=== PATIENT | female | born 1980 | race African-American/Black ===

== ENCOUNTER 2019-01-03 19:50 | Inpatient (IN) | payer MEDICAID ==
[~2019-01-03] VITALS: Ht 147.3 cm; Wt 72.6 kg
[2019-01-03] MEDS ORDERED: FERROUS SULFAT325 MG PO (20:22)
[2019-01-03] MEDS ORDERED: CARDURA4 MG PO (20:22)
[2019-01-03] MEDS ORDERED: LASIX40 MG PO (20:23)
[2019-01-03] MEDS ORDERED: HYDROCHLOROTHIA25 MG PO (20:23)
[2019-01-03] MEDS ORDERED: FOLIC ACID1 MG PO (20:23)
[2019-01-03] MEDS ORDERED: METOPROLOL TART50 MG PO (20:23)
[2019-01-03] MEDS ORDERED: LANTUS SOL100 UNIT/1 SC (20:23)
[2019-01-03] MEDS ORDERED: PROCARDIA XL30 MG PO (20:24)
[2019-01-03] MEDS ORDERED: PROTONIX40 MG PO (20:24)
[2019-01-03] MEDS ORDERED: NORVASC5 MG PO (20:24)
[2019-01-03] MEDS ORDERED: NORVASC10 MG PO (20:25)
[2019-01-03] MEDS ORDERED: TOPROL XL100 MG PO (20:25)
[2019-01-03] MEDS ORDERED: LISINOPRIL-HCT1 EAC8 PO (20:26)
[2019-01-03 21:32] LABS: BASOPHILS 0.3 % (0-2); EOSINOPHILS 1.4 % (0-7); HEMATOCRIT 33.3 % (36.0-48.0); HEMOGLOBIN 10.5 g/dL (12-16); LYMPHOCYTES 30.2 % (15-50); MCH 22.7 pg (26.0-34.0); MCHC 31.5 g/dL (31.0-37.0); MCV 72.1 fL (80.0-100.0); MONOCYTES 7.3 % (2-11); NEUTROPHILS 60.8 % (40-80); PLATELET COUNT 208 10x3/uL (130-400); RBC 4.62 10x6/uL (4.00-5.40); RDW 17.2 % (11.5-14.5); WBC 3.7 10x3/uL (4.8-10.8)
[2019-01-03 21:43] LABS: INR 0.99 (0.85-1.17); PROTIME 12.6 SECONDS (11.6-15.0)
[2019-01-03 21:44] LABS: APTT 29.2 SECONDS (22.8-39.4)
[2019-01-03 21:45] LABS: D-DIMER-QUANTITATIVE 0.5 ug/mLFEU (0.20-0.54)
[2019-01-03 22:08] LABS: ALBUMIN 3.4 g/dL (3.4-5.0); ALKALINE PHOSPHATASE 146 U/L (46-116); ALT (SGPT) 19 U/L (10-68); BILIRUBIN - TOTAL 0.37 mg/dL (0.2-1.3); CALC OSMOLALITY 286 mosm/kg (275-300); CALCIUM 8.5 mg/dL (8.5-10.1); CARBON DIOXIDE 29.2 mmol/L (21.0-32.0); CHLORIDE - SERUM 99 mmol/L (98-107); CREATININE - SERUM 0.9 mg/dL (0.6-1.3); GLUCOSE 382 mg/dL (74-106); POTASSIUM - SERUM 4.1 mmol/L (3.5-5.1); PROTEIN - SERUM 7.5 g/dL (6.4-8.2); SODIUM 136 mmol/L (136-145); UREA NITROGEN 11 mg/dL (7-18); eGFR NON AFRICAN AMERICAN 73 mL/min (90-120)
[2019-01-03 22:19] LABS: CKMB 0.4 U/L (0.0-3.6); CREATINE KINASE 83 UL (21-215); MAGNESIUM - SERUM 1.4 mg/dL (1.8-2.4); TROPONIN-I < 0.017 ng/mL (0.000-0.060)
[2019-01-03 23:40] VITALS: BP 162/97; BMI 33.5
[2019-01-03] MEDS ORDERED: ROBAXIN500 MG PO (23:40)
[2019-01-03 23:47] LABS: CKMB 0.5 U/L (0.0-3.6); CREATINE KINASE 82 UL (21-215); TROPONIN-I < 0.017 ng/mL (0.000-0.060)
--- NOTE | 2019-01-04 00:30 | NUR ---
RECIEVED REPORT FROM STEF VILLALPANDO. PT ARRIVED ON WHEELCHAIR, INITIAL VSS, WITH SBP 165. PT C/O PAIN AND NAUSEA ON ARRIVAL. PRN MORPHINE AND ZOFRAN GIVEN. INITIAL CIRCULAR CLERK COMPLETED. PT IS A GOOD HISTORIAN. PT PLACED ON CASINO FLOOR SUPERVISOR PER PROVIDERS ORDERS. PT 95 NORMAL SINUS ON TELEMETRY. PT DENIES ANY FURTHER NEEDS AT THIS TIME. WILL CPOC.
[2019-01-04 04:00] VITALS: BP 138/74
--- NOTE | 2019-01-04 04:55 | NUR ---
TRIED TO CALL RT ON NEED TO PERFORM EKG. RT NOT HERE AT THIS TIME. I HAVE CALLED TWICE.
--- NOTE | 2019-01-04 06:24 | NUR ---
NOTIFIED INCOMING SHIFT RT THAT EKG NEEDS TO BE DONE THIS AM.
[2019-01-04 07:22] LABS: BASOPHILS 0.5 % (0-2); EOSINOPHILS 1.3 % (0-7); HEMOGLOBIN 9.3 g/dL (12-16); LYMPHOCYTES 28.3 % (15-50); MCH 22.7 pg (26.0-34.0); MCV 73.2 fL (80.0-100.0); MONOCYTES 6.7 % (2-11); NEUTROPHILS 63.2 % (40-80); RDW 17.4 % (11.5-14.5); WBC 3.7 10x3/uL (4.8-10.8)
[2019-01-04 07:27] LABS: PLATELET COUNT 164 10x3/uL (130-400)
[2019-01-04 07:49] LABS: % SATURATION 14 % (15-55); IRON 29 ug/dl (35-150); TOTAL IRON BIND CAPACITY 198 ug/dl (260-445); UNSAT IRON BIND CAPACITY 169 ug/dl (150-375)
[2019-01-04 08:15] LABS: ALBUMIN 2.8 g/dL (3.4-5.0); ALKALINE PHOSPHATASE 117 U/L (46-116); ALT (SGPT) 15 U/L (10-68); BILIRUBIN - TOTAL 0.27 mg/dL (0.2-1.3); CALC OSMOLALITY 286 mosm/kg (275-300); CALCIUM 7.9 mg/dL (8.5-10.1); CHLORIDE - SERUM 102 mmol/L (98-107); CKMB 0.4 U/L (0.0-3.6); CREATINE KINASE 53 UL (21-215); CREATININE - SERUM 0.9 mg/dL (0.6-1.3); GLUCOSE 358 mg/dL (74-106); POTASSIUM - SERUM 4.2 mmol/L (3.5-5.1); PROTEIN - SERUM 6.2 g/dL (6.4-8.2); SODIUM 137 mmol/L (136-145); TROPONIN-I < 0.017 ng/mL (0.000-0.060); UREA NITROGEN 11 mg/dL (7-18); eGFR NON AFRICAN AMERICAN 73 mL/min (90-120)
[2019-01-04 08:19] LABS: MAGNESIUM - SERUM 1.4 mg/dL (1.8-2.4)
[2019-01-04 08:20] LABS: FERRITIN 21 ng/mL (3-244); PHOSPHOROUS 4.3 mg/dL (2.5-4.9)
[2019-01-04 08:31] LABS: PRO BNP 161 pg/mL (0-125)
[2019-01-04 09:48] VITALS: BP 140/94
--- NOTE | 2019-01-04 10:09 | NUR ---
PAGING DR CARTER TO SEE IF HE IS AWARE OF THE CONSULT ON THIS PATIENT. SHE IS SITTING UP IN BED , ALERT AND ORIENTED. SHE IS A LITTLE IRRITABLE, AND WANTS TO EAT. FAMILY AT BEDSIDE.
--- NOTE | 2019-01-04 10:19 | NUR ---
CALLED DR CARTER AND TOLD HIM ABOUT THE CONSULT. HE SAID HE HAD NOT SEEN IT, AND SHE COULD EAT NOW, AND THEN BE NPO.
--- NOTE | 2019-01-04 10:32 | NUR ---
CALLED PHARMACY TO VERIFY NEW ORDERS.
[2019-01-04 11:29] LABS: CKMB 0.5 U/L (0.0-3.6); CREATINE KINASE 57 UL (21-215); TROPONIN-I < 0.017 ng/mL (0.000-0.060)
--- NOTE | 2019-01-04 12:47 | MORECARE ---
CASE MANAGEMENT DISCHARGE SUMMARY PATIENT: ERYN CONTRERAS UNIT: [id number] ADM DATE: 01/03/19 AGE: 38 : 78 SEX: F ROOM/BED: D.1209 AUTHOR: FATOUMATA RAMIREZ PHYSICIAN: REFERRING PHYSICIAN: FREDA GAINES MD DATE OF SERVICE: 01/04/19 Discharge Plan Patient Name: ERYN CONTRERAS Facility: [facility]:[place] : 1980 Planned Disposition: Home Anticipated Discharge Date: 01/06/19 Discharge Date: Expected LOS: 3 Initial Reviewer: [email or web address] Initial Review Date: 01/03/2019 Generated: 01/04/19 1:46 pm Patient Name: ERYN CONTRERAS Page [phone] at 1247 All edits/amendments must be made on the electronic document DICTATION DATE: 01/04/19 1246 IT INTERN: CAROLINA 01/04/19 1246 RPT#: [id number] DC DATE: STATUS: ADM IN [facility] [address] [place] [address] END OF REPORT
--- NOTE | 2019-01-04 12:57 | MORECARE ---
CASE MANAGEMENT DISCHARGE SUMMARY PATIENT: ERYN CONTRERAS UNIT: [id number] ADM DATE: 01/03/19 AGE: 38 : 78 SEX: F ROOM/BED: D.1209 AUTHOR: ASHLEYDOC PHYSICIAN: REFERRING PHYSICIAN: FREDA GAINES MD DATE OF SERVICE: 01/04/19 Discharge Plan Patient Name: ERYN CONTRERAS Facility: [facility]:[place] : 1980 Planned Disposition: Home Anticipated Discharge Date: 01/06/19 Discharge Date: Expected LOS: 3 Initial Reviewer: [email or web address] Initial Review Date: 01/03/2019 Generated: 01/04/19 1:56 pm Comments DCP- Discharge Planning Updated by [email or web address]: Lien Veras on 01/04/19 11:[address] DC PLAN: Return home with her significant other Independently ANTICIPATED DC NEEDS: Denied known dc needs. CM met with patient to complete initial dc planning assessment. CM educated patient on the CM role and verbal consent given by patient to complete assessment. CM verified patient's address, phone number, and emergency contact phone numbers. Patient lives at home with her significant other, Talat. She reports she is independent in her care at home. At discharge patient plans to return home and feels this is a safe discharge. CM discussed availability of home health, rehab services, and medical equipment. Patient stated she would like to have a knee brace at discharge. Patient reports Talat will transport her home at time of discharge. CM will continue to follow and will assist as needed with dc plans/needs. Lien Veras RN, [facility] DCPIA - Discharge Planning Initial Assessment Updated by [email or web address]: Lien Veras on 01/04/19 12:47 pm * Is the patient Alert and Oriented? Yes * PCP [facility]u [facility] * [facility] [address] * Preadmission Environment Home with Family * ADLs Independent * Equipment Glucometer Rolling Walker * List name and contact numbers for known caregivers / representatives who currently or will assist patient after discharge: Talat Moise - [facility] - [phone] * Verbal permission to speak to the caregivers and representatives has been obtained from the patient. Yes * Community resources currently utilized None * Additional services required to return to the preadmission environment? No * Can the patient safely return to the preadmission environment? Yes * Has this patient been hospitalized within the prior 30 days at any hospital? No Last DP export: 01/04/19 11:46 a Patient Name: ERYN CONTRERAS Page 51532 at 1257 All edits/amendments must be made on the electronic document DICTATION DATE: 01/04/191255 HIGH SCHOOL SCIENCE TEACHER: CAROLINA 01/04/191255 RPT#: [id number] DC DATE: STATUS: ADM IN [facility] [address] [place] [address] END OF REPORT
--- NOTE | 2019-01-04 14:19 | NUR ---
TREATING PATIENT BACK PAIN ORDERED. SHE IS RESTING IN BED ON HER SIDE AT THIS TIME. KEEPING HER NPO UNTIL CARDIOLOGY CONSULT. SHE HAD A EARLY LUNCH. ONLY HER MEDICATIONS WITH SIPS OF WATER NOW.
[2019-01-04 14:33] LABS: APPEARANCE CLEAR (CLEAR); BILIRUBIN NEGATIVE (NEGATIVE); COLOR STRAW (YELLOW); GLUCOSE 100 mg/dL (NEGATIVE); KETONE NEGATIVE (NEGATIVE); NITRITE NEGATIVE (NEGATIVE); PROTEIN NEGATIVE (NEGATIVE); SPECIFIC GRAVITY 1.015 (1.005-1.020); UROBILINOGEN NORMAL (NORMAL)
[2019-01-04 15:40] VITALS: BP 104/71
--- NOTE | 2019-01-04 19:45 | NUR ---
EVENING ROUND COMPLETED. VSS, WITH BP OF 106/57. WILL MONITOR CLOSELY. AAOX3, NO S/S OF DISTRESS. PT C/O PAIN ON HER BACK, WILL ADMINISTER MED, WHEN DUE. PT DENIES ANY FURTHER NEEDS AT THIS TIME. WILL CPOC. CL WITHIN REACH.
[2019-01-04 19:52] VITALS: BP 106/57
[2019-01-05] VITALS: BP 95/53
[2019-01-05 04:33] VITALS: BP 103/59
[2019-01-05 05:35] LABS: BASOPHILS 0.6 % (0-2); EOSINOPHILS 2.8 % (0-7); LYMPHOCYTES 24.7 % (15-50); MCH 22.2 pg (26.0-34.0); MCHC 30.3 g/dL (31.0-37.0); MCV 73.2 fL (80.0-100.0); MONOCYTES 6.6 % (2-11); NEUTROPHILS 65.3 % (40-80); PLATELET COUNT 192 10x3/uL (130-400); RBC 4.51 10x6/uL (4.00-5.40); RDW 17.3 % (11.5-14.5); WBC 3.2 10x3/uL (4.8-10.8)
[2019-01-05 06:03] LABS: CALCIUM 8.5 mg/dL (8.5-10.1); CARBON DIOXIDE 30.7 mmol/L (21.0-32.0); CREATININE - SERUM 0.9 mg/dL (0.6-1.3); MAGNESIUM - SERUM 1.3 mg/dL (1.8-2.4); POTASSIUM - SERUM 3.7 mmol/L (3.5-5.1)
--- NOTE | 2019-01-05 07:10 | NUR ---
REPORT RECEIVED FROM AGRICULTURE INSTRUCTOR AND PATIENT CARE ASSUMED. PATIENT LAYING IN BED ON RT SIDE WITH EYES CLOSED AND BREATHING EVENLY. PATIENT AWAKENED FOR VS. VSS. PATIENT DENIES ANY NEEDS OR PAIN. AT BS. WILL CONTINUE WITH PLAN OF CARE. SR UP X 2 BED IN LOW POSITION AND CALL LIGHT IN REACH.
--- NOTE | 2019-01-05 11:09 | NUR ---
PATIENT COMPLAINS OF HEADACHE. MEDICATED PER JUN WITH TYLENOL 650 MG PO. AT BS. WILL CONTINUE TO MONITOR. SR UP X 2 BED IN LOW POSITION AND CALL LIGHT IN REACH.
--- NOTE | 2019-01-05 14:15 | NUR ---
PATIENT UP TO SHOWER. CLEAN GOWN ON WITH COMPLETE LINEN CHANGE. PATIENT TOLERATED WELL. PATIENT DENIES ANY NEEDS OR PAIN. WILL CONTINUE TO MONITOR. SR UP X 2 BED IN LOW POSITION AND CALL LIGHT IN REACH.
[2019-01-05 15:07] VITALS: Ht 147.3 cm; Wt 72.6 kg
--- NOTE | 2019-01-05 15:25 | NUR ---
CIRO GARCIA FROM CARDIOLOGY STATES PT IS OK TO DC AND THAT DR. NINA WAS WAITING ON THEM. I VERBALIZED UNDERSTANDING. PAGED SYDNEY GARCIA.
[2019-01-05] MEDS ORDERED: ZITHROMAX500 MG PO (15:36)
[2019-01-05] MEDS ORDERED: OMNICEF300 MG PO (15:37)
--- NOTE | 2019-01-05 18:55 | MORECARE ---
CASE MANAGEMENT DISCHARGE SUMMARY PATIENT: ERYN CONTRERAS UNIT: [id number] ADM DATE: 01/03/19 AGE: 38 : 78 SEX: F ROOM/BED: D.1209 AUTHOR: ASHLEYDOC PHYSICIAN: REFERRING PHYSICIAN: FREDA GAINES MD DATE OF SERVICE: 01/05/19 Discharge Plan Patient Name: ERYN CONTRERAS Facility: [facility]:[place] : 1980 Planned Disposition: Home Anticipated Discharge Date: 01/06/19 Discharge Date: 01/05/2019 Expected LOS: 3 Initial Reviewer: [email or web address] Initial Review Date: 01/03/2019 Generated: 01/05/19 7:54 pm Comments DCP- Discharge Planning Updated by [email or web address]: Lien Veras on 01/04/19 11:[address] DC PLAN: Return home with her significant other Independently ANTICIPATED DC NEEDS: Denied known dc needs. CM met with patient to complete initial dc planning assessment. CM educated patient on the CM role and verbal consent given by patient to complete assessment. CM verified patient's address, phone number, and emergency contact phone numbers. Patient lives at home with her significant other, Talat. She reports she is independent in her care at home. At discharge patient plans to return home and feels this is a safe discharge. CM discussed availability of home health, rehab services, and medical equipment. Patient stated she would like to have a knee brace at discharge. Patient reports Talat will transport her home at time of discharge. CM will continue to follow and will assist as needed with dc plans/needs. Lien Veras RN, [facility] DCPIA - Discharge Planning Initial Assessment Updated by [email or web address]: Lien Veras on 01/04/19 12:47 pm * Is the patient Alert and Oriented? Yes * PCP [facility]u [facility] - [facility] * [facility] [address] * Preadmission Environment Home with Family * ADLs Independent * Equipment Glucometer Rolling Walker * List name and contact numbers for known caregivers / representatives who currently or will assist patient after discharge: Talat Moise - [facility] - [phone] * Verbal permission to speak to the caregivers and representatives has been obtained from the patient. Yes * Community resources currently utilized None * Additional services required to return to the preadmission environment? No * Can the patient safely return to the preadmission environment? Yes * Has this patient been hospitalized within the prior 30 days at any hospital? No Last DP export: 01/04/19 11:57 a Patient Name: ERYN CONTRERAS Page [phone] at 1855 All edits/amendments must be made on the electronic document DICTATION DATE: 01/05/191853 OUTSIDE UPHOLSTERER: CAROLINA 01/05/191853 RPT#: [id number] DC DATE:01/05/19 STATUS: DIS IN [facility] [address] [place] [address] END OF REPORT
== END 2019-01-05 17:00 | disposition home or self-care (01) | DRG 304 ==
LOC: D.ER 19:50 → D.M3 22:13
PROVIDERS: Family Medicine; ADMIT Family Medicine; ATTEND Family Medicine
DX: I16.0 Hypertensive urgency (principal); J18.9 Pneumonia, unspecified organism; I11.0 Hypertensive heart disease with heart failure; I50.9 Heart failure, unspecified; D50.9 Iron deficiency anemia, unspecified; E11.9 Type 2 diabetes mellitus without complications; D86.9 Sarcoidosis, unspecified

== ENCOUNTER 2019-01-23 20:15 | Emergency (ER) | payer MEDICAID ==
[~2019-01-23] VITALS: Ht 147.3 cm; Wt 72.6 kg
[~2019-01-23 20:15] MED LIST: CARDURA4 MG PO; FERROUS SULFAT325 MG PO; FOLIC ACID1 MG PO; HYDROCHLOROTHIA25 MG PO; LANTUS SOL100 UNIT/1 SC; LASIX40 MG PO; LISINOPRIL-HCT1 EAC8 PO; METOPROLOL TART50 MG PO; NORVASC10 MG PO; NORVASC5 MG PO; OMNICEF300 MG PO; PROCARDIA XL30 MG PO; PROTONIX40 MG PO; ROBAXIN500 MG PO; TOPROL XL100 MG PO; ZITHROMAX500 MG PO
[2019-01-23 20:19] VITALS: Ht 147.3 cm; Wt 72.6 kg
[2019-01-23 21:13] LABS: BASOPHILS 0.5 % (0-2); EOSINOPHILS 1.3 % (0-7); HEMATOCRIT 33.1 % (36.0-48.0); HEMOGLOBIN 10.2 g/dL (12-16); LYMPHOCYTES 31.8 % (15-50); MCH 22.4 pg (26.0-34.0); MCHC 30.8 g/dL (31.0-37.0); MCV 72.7 fL (80.0-100.0); MONOCYTES 7.9 % (2-11); NEUTROPHILS 58.5 % (40-80); PLATELET COUNT 174 10x3/uL (130-400); RBC 4.55 10x6/uL (4.00-5.40); RDW 16.8 % (11.5-14.5); WBC 3.8 10x3/uL (4.8-10.8)
[2019-01-23 21:22] LABS: APTT 27.9 SECONDS (22.8-39.4); INR 0.97 (0.85-1.17); PROTIME 12.4 SECONDS (11.6-15.0)
[2019-01-23 21:31] LABS: UDS - AMPHET NEGATIVE QUAL (NEGATIVE); UDS - BARB NEGATIVE QUAL (NEGATIVE); UDS - BENZO NEGATIVE QUAL (NEGATIVE); UDS - COCAINE NEGATIVE QUAL (NEGATIVE); UDS - OPIATE NEGATIVE QUAL (NEGATIVE); UDS - PCP NEGATIVE QUAL (NEGATIVE); UDS - THC NEGATIVE QUAL (NEGATIVE)
[2019-01-23 21:38] LABS: ALBUMIN 3.2 g/dL (3.4-5.0); ALKALINE PHOSPHATASE 177 U/L (46-116); ALT (SGPT) 23 U/L (10-68); BILIRUBIN - TOTAL 0.62 mg/dL (0.2-1.3); CALC OSMOLALITY 287 mosm/kg (275-300); CALCIUM 8.2 mg/dL (8.5-10.1); CARBON DIOXIDE 24.2 mmol/L (21.0-32.0); CHLORIDE - SERUM 100 mmol/L (98-107); CREATINE KINASE 211 UL (21-215); CREATININE - SERUM 0.9 mg/dL (0.6-1.3); MAGNESIUM - SERUM 1.5 mg/dL (1.8-2.4); POTASSIUM - SERUM 5.7 mmol/L (3.5-5.1); PROTEIN - SERUM 7.6 g/dL (6.4-8.2); SODIUM 135 mmol/L (136-145); TROPONIN-I < 0.017 ng/mL (0.000-0.060); UREA NITROGEN 12 mg/dL (7-18); eGFR NON AFRICAN AMERICAN 73 mL/min (90-120)
[2019-01-23 21:42] LABS: GLUCOSE 422 mg/dL (74-106)
[2019-01-23 22:06] LABS: CKMB 0.2 U/L (0.0-3.6)
[2019-01-23 22:19] LABS: APPEARANCE CLEAR (CLEAR); BILIRUBIN NEGATIVE (NEGATIVE); COLOR YELLOW (YELLOW); GLUCOSE 1000 mg/dL (NEGATIVE); KETONE NEGATIVE (NEGATIVE); NITRITE NEGATIVE (NEGATIVE); PROTEIN TRACE mg/dL (NEGATIVE); UROBILINOGEN NORMAL (NORMAL)
[2019-01-23 22:21] LABS: BACTERIA FEW /hpf (NEGATIVE); RED CELLS - URINE 0-5 /hpf (0-5); WHITE CELLS - URINE OCC /hpf (NEGATIVE)
[2019-01-24 00:41] VITALS: BP 133/67
== END 2019-01-24 00:41 | disposition home or self-care (01) ==
LOC: D.ER 20:15
PROVIDERS: Family Medicine
DX: I16.9 Hypertensive crisis, unspecified (principal); I11.0 Hypertensive heart disease with heart failure; I50.9 Heart failure, unspecified; E11.65 Type 2 diabetes mellitus with hyperglycemia; E87.5 Hyperkalemia; R80.9 Proteinuria, unspecified

== ENCOUNTER 2019-03-22 15:29 | Inpatient (IN) | payer MEDICAID ==
[~2019-03-22] VITALS: Ht 147.3 cm; Wt 72.6 kg
[2019-03-22 16:25] LABS: BASOPHILS 0.2 % (0-2); EOSINOPHILS 1.6 % (0-7); HEMATOCRIT 35.7 % (36.0-48.0); HEMOGLOBIN 11.1 g/dL (12-16); IMMATURE GRANULOCYTES 0.2 % (0-5); LYMPHOCYTES 25.5 % (15-50); MCH 23.2 pg (26.0-34.0); MCHC 31.1 g/dL (31.0-37.0); MCV 74.5 fL (80.0-100.0); MONOCYTES 5.3 % (2-11); NEUTROPHILS 67.2 % (40-80); RBC 4.79 10x6/uL (4.00-5.40); RDW 14.7 % (11.5-14.5); WBC 4.9 10x3/uL (4.8-10.8)
[2019-03-22 16:31] LABS: PLATELET COUNT 244 10x3/uL (130-400)
[2019-03-22 16:35] LABS: INR 1.05 (0.85-1.17); PROTIME 13.2 SECONDS (11.6-15.0)
[2019-03-22 16:57] LABS: ALBUMIN 3.1 g/dL (3.4-5.0); ALKALINE PHOSPHATASE 156 U/L (46-116); ALT (SGPT) 22 U/L (10-68); BILIRUBIN - TOTAL 0.42 mg/dL (0.2-1.3); CALCIUM 8.4 mg/dL (8.5-10.1); CARBON DIOXIDE 24.2 mmol/L (21.0-32.0); CHLORIDE - SERUM 92 mmol/L (98-107); CKMB 0.4 U/L (0.0-3.6); CREATINE KINASE 45 UL (21-215); CREATININE - SERUM 1.5 mg/dL (0.6-1.3); MAGNESIUM - SERUM 1.5 mg/dL (1.8-2.4); PROTEIN - SERUM 7.9 g/dL (6.4-8.2); SODIUM 125 mmol/L (136-145); UREA NITROGEN 11 mg/dL (7-18); eGFR NON AFRICAN AMERICAN 41 mL/min (90-120)
[2019-03-22 17:00] LABS: CALC OSMOLALITY 286 mosm/kg (275-300); GLUCOSE 738 mg/dL (74-106); TROPONIN-I < 0.017 ng/mL (0.000-0.060)
[2019-03-22 19:30] VITALS: BP 162/101
[2019-03-22 23:11] LABS: CALC OSMOLALITY 279 mosm/kg (275-300); CALCIUM 7.9 mg/dL (8.5-10.1); CARBON DIOXIDE 28.1 mmol/L (21.0-32.0); CHLORIDE - SERUM 97 mmol/L (98-107); CKMB 0.5 U/L (0.0-3.6); CREATINE KINASE 56 UL (21-215); CREATININE - SERUM 1.4 mg/dL (0.6-1.3); GLUCOSE 359 mg/dL (74-106); POTASSIUM - SERUM 3.5 mmol/L (3.5-5.1); SODIUM 133 mmol/L (136-145); TROPONIN-I < 0.017 ng/mL (0.000-0.060); UREA NITROGEN 12 mg/dL (7-18); eGFR NON AFRICAN AMERICAN 44 mL/min (90-120)
[2019-03-23] VITALS (7 sets, daily range): BP systolic 104–162; BP diastolic 58–101; Ht 147.3 cm; Wt 72.6 kg
[2019-03-23 06:24] LABS: BASOPHILS 0.2 % (0-2); EOSINOPHILS 3.8 % (0-7); HEMATOCRIT 33.3 % (36.0-48.0); HEMOGLOBIN 10.6 g/dL (12-16); LYMPHOCYTES 28.3 % (15-50); MCH 23.7 pg (26.0-34.0); MCHC 31.8 g/dL (31.0-37.0); MCV 74.5 fL (80.0-100.0); MONOCYTES 7.3 % (2-11); NEUTROPHILS 60.4 % (40-80); PLATELET COUNT 213 10x3/uL (130-400); RBC 4.47 10x6/uL (4.00-5.40); RDW 15.1 % (11.5-14.5); WBC 4.5 10x3/uL (4.8-10.8)
[2019-03-23 06:32] LABS: KETONE - SERUM NEGATIVE (NEGATIVE)
[2019-03-23 06:49] LABS: AMYLASE - SERUM 40 U/L (25-115); CARBON DIOXIDE 28.9 mmol/L (21.0-32.0); CHLORIDE - SERUM 104 mmol/L (98-107); CKMB 0.4 U/L (0.0-3.6); CREATINE KINASE 40 UL (21-215); LIPASE 64 U/L (73-393); MAGNESIUM - SERUM 1.5 mg/dL (1.8-2.4); PHOSPHOROUS 4.4 mg/dL (2.5-4.9); POTASSIUM - SERUM 3.7 mmol/L (3.5-5.1); SODIUM 140 mmol/L (136-145); TROPONIN-I < 0.017 ng/mL (0.000-0.060); UREA NITROGEN 14 mg/dL (7-18); eGFR NON AFRICAN AMERICAN 65 mL/min (90-120)
[2019-03-23 07:00] LABS: CALC OSMOLALITY 279 mosm/kg (275-300); GLUCOSE 95 mg/dL (74-106)
--- NOTE | 2019-03-23 10:09 | NUR ---
PT IS RESTING IN BED WITH EYES OPEN. NO S/S OF ACUTE DISTRESS. PT C/O OF PAIN. PT WAS GIVEN MORPHINE AND ZOFRAN. PT IV IN R HAND, NORMAL SALINE @ 100 ML/HR. IV IS PATENT WITHOUT REDNESS OR SWELLING. WILL REVAULATE PAIN. CALL LIGHT IN PLACE. WILL CONTINUE TO MONITOR.
[2019-03-23 12:00] LABS: CARBON DIOXIDE 23.6 mmol/L (21.0-32.0); CHLORIDE - SERUM 103 mmol/L (98-107); CKMB 0.3 U/L (0.0-3.6); CREATINE KINASE 46 UL (21-215); CREATININE - SERUM 0.9 mg/dL (0.6-1.3); POTASSIUM - SERUM 3.7 mmol/L (3.5-5.1); SODIUM 135 mmol/L (136-145); UREA NITROGEN 13 mg/dL (7-18); eGFR NON AFRICAN AMERICAN 73 mL/min (90-120)
[2019-03-23 12:01] LABS: CALC OSMOLALITY 272 mosm/kg (275-300); GLUCOSE 153 mg/dL (74-106); TROPONIN-I < 0.017 ng/mL (0.000-0.060)
--- NOTE | 2019-03-23 13:07 | NUR ---
IV WAS TAKEN OUT BECUASE OF INFILTRATION. THERE WAS A SMALL AREA OF SWELLING AT THE BASE OF THE THUMB. PT EXPRESSED NO TENDERNESS. CATHETER TIP IN TACT. CALL LIGHT IN PLACE. WILL CONTINUE TO MONITOR.
--- NOTE | 2019-03-23 15:20 | NUR ---
PT IV WAS NOT REPLACE PER ORDER.
[2019-03-23 16:35] LABS: UDS - AMPHET NEGATIVE QUAL (NEGATIVE); UDS - BARB NEGATIVE QUAL (NEGATIVE); UDS - BENZO NEGATIVE QUAL (NEGATIVE); UDS - COCAINE NEGATIVE QUAL (NEGATIVE); UDS - OPIATE POSITIVE QUAL (NEGATIVE); UDS - PCP NEGATIVE QUAL (NEGATIVE); UDS - THC NEGATIVE QUAL (NEGATIVE)
[2019-03-23 17:34] LABS: ANION GAP 11.5 mmol/L (8-16); CARBON DIOXIDE 27.2 mmol/L (21.0-32.0); CREATININE - SERUM 1.1 mg/dL (0.6-1.3); POTASSIUM - SERUM 3.7 mmol/L (3.5-5.1)
--- NOTE | 2019-03-23 19:35 | NUR ---
I have reviewed this patient and I concur with the Shift Assessment completed by the Licensed Practical Nurse today this shift.
--- NOTE | 2019-03-23 19:39 | NUR ---
PATIENT SITTING UP IN BED, FAMILY AT BEDSIDE. PATIENT STATES HER PAIN IS AN 8 OUT OF 10 AND WOULD LIKE SOME PAIN MEDICINE. PATIENT HAS NO IV. ROOM AIR. PATIENT HAS NO FURTHER NEEDS AT THIS TIME. BED RAILS X2. CALL LIGHT AND BEDSIDE TABLE WITHIN REACH.
[2019-03-24] VITALS: BP 103/73
[2019-03-24 04:00] VITALS: BP 112/74
[2019-03-24 07:21] LABS: ANION GAP 7.5 mmol/L (8-16); CALCIUM 7.8 mg/dL (8.5-10.1); CARBON DIOXIDE 28.4 mmol/L (21.0-32.0); CREATININE - SERUM 0.9 mg/dL (0.6-1.3); MAGNESIUM - SERUM 1.5 mg/dL (1.8-2.4); POTASSIUM - SERUM 3.9 mmol/L (3.5-5.1)
[2019-03-24 07:26] LABS: BASOPHILS 0.2 % (0-2); EOSINOPHILS 4.1 % (0-7); HEMATOCRIT 29.4 % (36.0-48.0); HEMOGLOBIN 9.1 g/dL (12-16); IMMATURE GRANULOCYTES 0.2 % (0-5); LYMPHOCYTES 27.3 % (15-50); MCH 22.9 pg (26.0-34.0); MCV 73.9 fL (80.0-100.0); MONOCYTES 8.8 % (2-11); NEUTROPHILS 59.4 % (40-80); PLATELET COUNT 168 10x3/uL (130-400); RBC 3.98 10x6/uL (4.00-5.40); WBC 4.4 10x3/uL (4.8-10.8)
[2019-03-24 08:00] VITALS: BP 109/78
--- NOTE | 2019-03-24 08:18 | NUR ---
PT RESTING IN BED WITH EYES CLOSED. NO S/S OF DISTRESS. NO C/O AT THIS TIME. NO IV AT THIS TIME BUT ASSOCIATE TEACHER WAS NOTIFIED ABOUT THE RECOMENDATION OF A MIDLINE FROM VASCULAR ACCESS. PT TELEMETRY 89 SINUS RYTHM. CALL LIGHT IN PLACE. WILL CONTINUE TO MONITOR.
--- NOTE | 2019-03-24 11:15 | NUR ---
MIDLINE PLACED BY VASCULAR ACCESS NURSE IN L UPPER ARM. IV IS PATENT WITHOUT REDNESS, SWELLING, OR TENDERNESS. IV NORMAL SALINE @ 100 ML/HR. PT HAS NO S/S OF DISTRESS. NO C/O AT THIS TIME. CALL LIGHT IN PLACE. WILL CONTINUE TO MONITOR.
[2019-03-24 12:00] VITALS: BP 147/85
--- NOTE | 2019-03-24 12:27 | MORECARE ---
CASE MANAGEMENT DISCHARGE SUMMARY PATIENT: ERYN CONTRERAS UNIT: [id number] ADM DATE: 03/22/19 AGE: 38 : [birth year] SEX: F ROOM/BED: D.2215 AUTHOR: FATOUMATA RAMIREZ PHYSICIAN: REFERRING PHYSICIAN: KARO GARDNER MD DATE OF SERVICE: 03/24/19 Discharge Plan Patient Name: ERYN CONTRERAS Facility: [facility]:[place] : 1980 Planned Disposition: Home or Self Care Anticipated Discharge Date: Discharge Date: Expected LOS: Initial Reviewer: [email or web address] Initial Review Date: 03/22/2019 Generated: 03/24/19 1:26 pm DCPIA - Discharge Planning Initial Assessment Updated by [email or web address]: Corinne Riley on 03/24/19 12:26 pm * Is the patient Alert and Oriented? Yes * How many steps to enter\exit or inside your home? * PCP GINGER NOGUERA APN * [facility] * Preadmission Environment Home with Family * ADLs Independent * Equipment Glucometer * List name and contact numbers for known caregivers / representatives who currently or will assist patient after discharge: SHANTEL MEDINA [phone] * Verbal permission to speak to the caregivers and representatives has been obtained from the patient. N/A * Community resources currently utilized None * Can the patient safely return to the preadmission environment? Yes * Has this patient been hospitalized within the prior 30 days at any hospital? No Patient Name: ERYN CONTRERAS Page 18391 at 1227 All edits/amendments must be made on the electronic document DICTATION DATE: 03/24/19 1226 NONFARM ANIMAL CARETAKER: CAROLINA 03/24/19 1226 RPT#: [id number] DC DATE: STATUS: ADM IN [facility] [address] [place] [address] END OF REPORT
[2019-03-24] MEDS ORDERED: GLUCOPHAGE500 MG PO (12:32)
[2019-03-24] MEDS ORDERED: TOPROL XL50 MG PO (12:33)
[2019-03-24] MEDS ORDERED: Lantus Insulin SC (12:40)
--- NOTE | 2019-03-24 12:41 | MORECARE ---
CASE MANAGEMENT DISCHARGE SUMMARY PATIENT: ERYN CONTRERAS UNIT: [id number] ADM DATE: 03/22/19 AGE: 38 : [birth year] SEX: F ROOM/BED: D.2215 AUTHOR: ASHLEYDOC PHYSICIAN: REFERRING PHYSICIAN: KARO GARDNER MD DATE OF SERVICE: 03/24/19 Discharge Plan Patient Name: ERYN CONTRERAS Facility: [facility]:[place] : 1980 Planned Disposition: Home or Self Care Anticipated Discharge Date: Discharge Date: Expected LOS: Initial Reviewer: [email or web address] Initial Review Date: 03/22/2019 Generated: 03/24/19 1:41 pm Comments DCP- Discharge Planning Updated by [email or web address]: Corinne Riley on 03/24/19 11:[address] Patient Name: ERYN CONTRERAS Admission Status: ER Accout number: [id number] Admission Date: 03-22-2019 : 1980 Admission Diagnosis: Attending: KARO GARDNER Current LOS: 2 Anticipated DC Date: Planned Disposition: Home or Self Care Primary Insurance: MEDICAID [place] Discharge Planning Comments: CM met with patient to complete initial dc planning assessment. CM educated patient on the CM role and verbal consent given by patient to complete assessment. Patient lives at home with her boyfriend where she is independent with his care. At discharge patient plans to return home and feels this is a safe discharge. CM discussed availability of home health, rehab services, and medical equipment. She has a glucometer at home and stated she knew how to use it. She did question about HH. I gave her a list of choices and she will get back with me. Patient denied known discharge needs at this time. CM will continue to follow and will assist as needed with dc plans/needs House Worker: Corinne Riley DCPIA - Discharge Planning Initial Assessment Updated by [email or web address]: Corinne Riley on 03/24/19 12:26 pm * Is the patient Alert and Oriented? Yes * How many steps to enter\exit or inside your home? * PCP GINGER NOGUERA APN * [facility] * Preadmission Environment Home with Family * ADLs Independent * Equipment Glucometer * List name and contact numbers for known caregivers / representatives who currently or will assist patient after discharge: SHANTEL MEDINA [phone] * Verbal permission to speak to the caregivers and representatives has been obtained from the patient. N/A * Community resources currently utilized None * Can the patient safely return to the preadmission environment? Yes * Has this patient been hospitalized within the prior 30 days at any hospital? No Last DP export: 03/24/19 11:27 Patient Name: ERYN CONTRERAS Page 42913 at 1241 All edits/amendments must be made on the electronic document DICTATION DATE: 03/24/19 1241 FINGER GRIP MACHINE OPERATOR: CAROLINA 03/24/19 1241 RPT#: [id number] DC DATE: STATUS: ADM IN [facility] [address] [place] [address] END OF REPORT
--- NOTE | 2019-03-24 12:46 | NUR ---
I have reviewed this patient and I concur with the Shift Assessment completed by the Licensed Practical Nurse today this shift.
--- NOTE | 2019-03-24 14:46 | NUR ---
PATIENT GIVEN DISCHARGE INSTRUCTIONS, AND PATIENT EXPRESSED UNDERSTANDING. PATIENT HAD NO QUESTIONS. PATIENTS MIDLINE TAKEN OUT OF L UPPER ARM, CATHETER TIP IN PLACE. NO S/S OF DISTRESS. PATIENT LEFT ABULATORY WITH FAMILY TO PERSONAL CAR. PATIENT DENIED ANY FURTHER NEEDS.
--- NOTE | 2019-03-24 15:25 | EC ---
PATIENT:ERYN CONTRERAS DATE OF SERVICE: 03/22/19 SEX: F MEDICAL RECORD: [id number] DATE OF : [birth year] LOCATION:D.MS [address] AGE OF PATIENT: 38 ADMISSION DATE: 03/22/19 REFERRING PHYSICIAN: INTERPRETING PHYSICIAN: DAVID ALVAREZ MD ECHOCARDIOGRAM REPORT ECHO CHARGES 5 ECHO LIMITED Date: 03/23/19 CLINICAL DIAGNOSIS: DILATED CARDIOMYOPATHY ECHOCARDIOGRAPHIC MEASUREMENTS (adult normal given) AC root (d.<3.7cm) 0 cm LV Septum d (<1.2 cm> 0 cm Valve Excursion 0 cm LV Septum (systole) 0 cm Left Atria (s.<4.0cm> 0 cm LVPW d(<1.2cm) 0 cm RV (d.<2.3cm) 0 cm LVPW (sytole) 0 cm LV diastole(<5.6CM) 0 cm MV E-F(>70mm/sec) 0 cm LV systole 0 cm LVOT Diameter 0 cm MV exc.(>10mm) 0 cm Est.ejection fraction (50-75%) 0 % DOPPLER: LVIT 0 cm/sec A 0 cm/sec E 0 cm/sec LA 0 cm/sec RVSP 0 mmHg LVOT 0 cm/sec AOP1/2T 0 m/s Asc. Ao 0 cm/sec RVOT 0 cm/sec RA 0 cm/sec PA 0 cm/sec AV Gradient Peak 0 mmHg AV Mean 0 mmHg AV Area 0 cm MV Gradient Peak 0 mmHg MV Mean 0 mmHg MV Area 0 cm COMMENTS: LIMITED STUDY (2-D ONLY) COMPLETE ECHO DONE ON 01/05/19 Sweet Dough Mixer: 1 JANAY STAPLESOE District Administrator: 1 Dr. Alvarez TAPE# PACS Pericardial Effusion N DATE OF SERVICE: PROCEDURE: Limited echocardiogram for ejection fraction. FINDINGS: Left ventricular chamber size is within normal limits. Left ventricular systolic function is normal at 55% to 60%. TRANSINT:[id number] Voice Confirmation ID: [id number] DOCUMENT ID: [id number] ECHOCARDIOGRAM REPORT [id number] SATNAM CONTRERASLENASHAYLEE DAVID ALVAREZ MD at 8058 CC: [id number] DICTATION DATE: 03/23/19 1559 TECHNICAL ADMINISTRATOR: 03/24/19 0014 DIS IN 03/24/19 [facility] [address] [place] [address]
--- NOTE | 2019-03-24 15:25 | CN ---
PATIENT NAME:ERYN SWARTZ MEDICAL RECORD: [id number] : [birth year] LOCATION:D.MS R[address]y2215 ADMIT DATE: 03/22/19 ACCOUNT: [id number] CONSULTING PHYSICIAN: DAVID KULKARNI MD REFERRING PHYSICIAN: KARO GARDNER MD DATE OF CONSULTATION: 03/23/2019 ADMITTING DIAGNOSES: 1. Chest pain. 2. Shortness of breath. 3. Tachycardia. 4. Murmur. 5. Hypertension. 6. Insulin-dependent diabetes. HISTORY OF PRESENT ILLNESS: Mrs. Swartz presents with chest pain, very atypical for angina, a sharp stabbing pain, worse with deep inspiration. She has been overall more short of breath. She has difficult to control hypertension, as well she is tachycardic. She has a cardiac history started in [place]. At that time, she was told she had a fast heart rate, sounds like she had a LINQ monitor placed for 3 years, this was removed, had no dysrhythmias. She had a stress test as well as a cardiac catheterization there, which showed no significant blockage. Most recently, she was seen at [facility] for shortness of breath and was told that she had a hole in her heart and valvular problems. She does have a systolic murmur. PHYSICAL EXAMINATION: CONSTITUTIONAL/GENERAL APPEARANCE: Well nourished, well developed, appears stated age. EYES: Lids and conjunctivae noninjected. No discharge. No pallor. ENT: Lips within normal limit. No cyanosis. No pallor. NECK: Carotid arteries, bilateral normal upstroke. No bruits. No thrills. No jugular venous pressure or distention. CERVICAL LYMPH NODES: Nontender. Nonenlarged. THYROID: Not enlarged. No nodules. CARDIOVASCULAR: Precordial exam, nondisplaced. No heaves or pericardial thrills. Rate and rhythm, regular. Heart sounds, normal S1, normal S2. No S3, no gallop, no rub. Systolic murmur, not heard. Diastolic murmur, not heard. RESPIRATORY: Respiratory effort, unlabored. Normal curvature. No thoracic deformity. No chest wall tenderness. Percussion, resonant. Auscultation, clear. No wheezes, no rales, no rhonchi. ABDOMEN: Soft, nondistended, nontender. No abdominal pain, no vomiting and normal appetite. MUSCULOSKELETAL: No joint tenderness, normal gait, normal tone. SKIN: Warm and dry. OVERALL IMPRESSION: Chest pain is atypical for cardiac. She has a normal cardiac catheterization and normal troponin, no ST-T abnormalities. Did not need to do anything for the chest pain. We will treat based on the tachycardia. She is on metoprolol 100 mg a day. We will make this b.i.d. This will give better heart rate and blood pressure control, discontinuing her Procardia that she is on, continuing her Cardura, will get an echocardiogram. No other cardiac workup or treatment is necessary. TRANSINT:[id number] Voice Confirmation ID: [id number] DOCUMENT ID: [id number] CONSULT REPORT [id number] ERYN SWARTZ JEFFREY MD at 1525 CC: [id number] DICTATION DATE: 03/23/19 1040 NEUROSCIENCE SPECIALIST: 03/23/19 1235 DIS IN 03/24/19 [place] [address] [place] [address]
--- NOTE | 2019-03-28 12:23 | MORECARE ---
CASE MANAGEMENT DISCHARGE SUMMARY PATIENT: ERYN CONTRERAS UNIT: [id number] ADM DATE: 03/22/19 AGE: 38 : [birth year] SEX: F ROOM/BED: D.2215 AUTHOR: FATOUMATA RAMIREZ PHYSICIAN: REFERRING PHYSICIAN: KARO GARDNER MD DATE OF SERVICE: 03/28/19 Discharge Plan Patient Name: ERYN CONTRERAS Facility: [facility]:[place] : 1980 Planned Disposition: Home or Self Care Anticipated Discharge Date: Discharge Date: 03/24/2019 Expected LOS: Initial Reviewer: [email or web address] Initial Review Date: 03/22/2019 Generated: 03/28/19 1:23 pm Comments DCP- Discharge Planning Updated by [email or web address]: Corinne Riley on 03/24/19 11:[address] Patient Name: ERYN CONTRERAS Admission Status: ER Accout number: [id number] Admission Date: 03-22-2019 : 1980 Admission Diagnosis: Attending: KARO GARDNER Current LOS: 2 Anticipated DC Date: Planned Disposition: Home or Self Care Primary Insurance: MEDICAID [place] Discharge Planning Comments: CM met with patient to complete initial dc planning assessment. CM educated patient on the CM role and verbal consent given by patient to complete assessment. Patient lives at home with her boyfriend where she is independent with his care. At discharge patient plans to return home and feels this is a safe discharge. CM discussed availability of home health, rehab services, and medical equipment. She has a glucometer at home and stated she knew how to use it. She did question about HH. I gave her a list of choices and she will get back with me. Patient denied known discharge needs at this time. CM will continue to follow and will assist as needed with dc plans/needs Pig Farm Manager: Corinne Riley DCPIA - Discharge Planning Initial Assessment Updated by [email or web address]: Corinne Riley on 03/24/19 12:26 pm * Is the patient Alert and Oriented? Yes * How many steps to enter\exit or inside your home? * PCP GINGER NOGUERA APN * [facility] * Preadmission Environment Home with Family * ADLs Independent * Equipment Glucometer * List name and contact numbers for known caregivers / representatives who currently or will assist patient after discharge: SHANTEL MEDINA [phone] * Verbal permission to speak to the caregivers and representatives has been obtained from the patient. N/A * Community resources currently utilized None * Can the patient safely return to the preadmission environment? Yes * Has this patient been hospitalized within the prior 30 days at any hospital? No Last DP export: 03/24/19 11:41 Patient Name: ERYN CONTRERAS Page 88464 at 1223 All edits/amendments must be made on the electronic document DICTATION DATE: 03/28/191222 HAZARDOUS MATERIAL SPECIALIST: CAROLINA 03/28/193 RPT#: [id number] DC DATE:03/24/19 STATUS: DIS IN [facility] [address] [place] [address] END OF REPORT
== END 2019-03-24 14:45 | disposition home or self-care (01) | DRG 638 ==
LOC: D.ER 15:29 → D.MS 18:43
PROVIDERS: Family Medicine; ADMIT Internal Medicine Nephrology; ATTEND Internal Medicine Nephrology
PROC: 05HC33Z Insertion of Infusion Device into Left Basilic Vein, Percutaneous Approach (ICD-10-PCS; principal; 2019-03-24)
DX: E11.65 Type 2 diabetes mellitus with hyperglycemia (principal); E87.1 Hypo-osmolality and hyponatremia; N17.9 Acute kidney failure, unspecified; I16.0 Hypertensive urgency; I20.9 Angina pectoris, unspecified; E83.42 Hypomagnesemia; D50.9 Iron deficiency anemia, unspecified; D86.9 Sarcoidosis, unspecified; J45.909 Unspecified asthma, uncomplicated; K21.9 Gastro-esophageal reflux disease without esophagitis; D57.3 Sickle-cell trait; R00.0 Tachycardia, unspecified; R01.1 Cardiac murmur, unspecified; Z79.4 Long term (current) use of insulin; I10 Essential (primary) hypertension

== ENCOUNTER 2019-04-17 19:16 | Emergency (ER) | payer MEDICAID ==
[~2019-04-17] VITALS: Ht 147.3 cm; Wt 77.1 kg
[~2019-04-17 19:16] MED LIST changes: +GLUCOPHAGE500 MG PO; +Lantus Insulin SC; +TOPROL XL50 MG PO
[2019-04-17 20:13] VITALS: Ht 147.3 cm; Wt 77.1 kg
[2019-04-17 21:17] LABS: BASOPHILS 0.2 % (0-2); EOSINOPHILS 0 % (0-7); HEMATOCRIT 34.4 % (36.0-48.0); HEMOGLOBIN 10.5 g/dL (12-16); IMMATURE GRANULOCYTES 1.3 % (0-5); LYMPHOCYTES 9.5 % (15-50); MCHC 30.5 g/dL (31.0-37.0); MCV 75.4 fL (80.0-100.0); MONOCYTES 3.4 % (2-11); NEUTROPHILS 85.6 % (40-80); RBC 4.56 10x6/uL (4.00-5.40); RDW 15.2 % (11.5-14.5); WBC 6.2 10x3/uL (4.8-10.8)
[2019-04-17 21:20] LABS: PLATELET COUNT 338 10x3/uL (130-400)
[2019-04-17 21:21] LABS: APTT 23.5 SECONDS (22.8-39.4); INR 0.92 (0.85-1.17); PROTIME 12.3 SECONDS (11.6-15.0)
[2019-04-17 21:29] LABS: CALCIUM 9.2 mg/dL (8.5-10.1); CARBON DIOXIDE 30.5 mmol/L (21.0-32.0); CHLORIDE - SERUM 91 mmol/L (98-107); CREATININE - SERUM 1.4 mg/dL (0.6-1.3); POTASSIUM - SERUM 4.7 mmol/L (3.5-5.1); SODIUM 128 mmol/L (136-145); UREA NITROGEN 25 mg/dL (7-18); eGFR NON AFRICAN AMERICAN 44 mL/min (90-120)
[2019-04-17 21:59] LABS: ALBUMIN 3.2 g/dL (3.4-5.0); ALKALINE PHOSPHATASE 169 U/L (46-116); ALT (SGPT) 17 U/L (10-68); BILIRUBIN - TOTAL 0.64 mg/dL (0.2-1.3); CKMB 0.4 U/L (0.0-3.6); CREATINE KINASE 35 UL (21-215); PRO BNP 391 pg/mL (0-125); PROTEIN - SERUM 8.1 g/dL (6.4-8.2)
[2019-04-17 22:01] LABS: CALC OSMOLALITY 302 mosm/kg (275-300); GLUCOSE 857 mg/dL (74-106); TROPONIN-I < 0.017 ng/mL (0.000-0.060)
[2019-04-18 00:20] LABS: APPEARANCE CLEAR (CLEAR); BILIRUBIN NEGATIVE (NEGATIVE); COLOR STRAW (YELLOW); GLUCOSE 1000 mg/dL (NEGATIVE); KETONE NEGATIVE (NEGATIVE); NITRITE NEGATIVE (NEGATIVE); PROTEIN NEGATIVE (NEGATIVE); SPECIFIC GRAVITY 1.005 (1.005-1.020); UROBILINOGEN NORMAL (NORMAL)
[2019-04-18 02:34] VITALS: BP 163/107
== END 2019-04-18 02:34 | disposition home or self-care (01) ==
LOC: D.ER 19:16
PROVIDERS: Emergency Medicine
DX: E11.65 Type 2 diabetes mellitus with hyperglycemia (principal); Z79.84 Long term (current) use of oral hypoglycemic drugs; I11.0 Hypertensive heart disease with heart failure; I50.9 Heart failure, unspecified; R00.0 Tachycardia, unspecified

== ENCOUNTER 2019-04-21 11:28 | Inpatient (IN) | payer MEDICAID ==
[~2019-04-21] VITALS: Ht 147.3 cm; Wt 75.3 kg
[2019-04-21 12:12] LABS: BASOPHILS 0 % (0-2); EOSINOPHILS 0.1 % (0-7); IMMATURE GRANULOCYTES 0.6 % (0-5); LYMPHOCYTES 16.6 % (15-50); MCH 23.3 pg (26.0-34.0); MCHC 31.3 g/dL (31.0-37.0); MCV 74.4 fL (80.0-100.0); NEUTROPHILS 74.7 % (40-80); RDW 15.3 % (11.5-14.5); WBC 7.1 10x3/uL (4.8-10.8)
[2019-04-21 12:16] LABS: PLATELET COUNT 240 10x3/uL (130-400)
[2019-04-21 12:30] LABS: ALBUMIN 3.2 g/dL (3.4-5.0); ALKALINE PHOSPHATASE 267 U/L (46-116); ALT (SGPT) 22 U/L (10-68); BILIRUBIN - TOTAL 0.29 mg/dL (0.2-1.3); CALCIUM 8.8 mg/dL (8.5-10.1); CARBON DIOXIDE 28.7 mmol/L (21.0-32.0); CHLORIDE - SERUM 94 mmol/L (98-107); CKMB 0.8 U/L (0.0-3.6); CREATINE KINASE 35 UL (21-215); CREATININE - SERUM 1.4 mg/dL (0.6-1.3); MAGNESIUM - SERUM 1.7 mg/dL (1.8-2.4); PROTEIN - SERUM 7.3 g/dL (6.4-8.2); SODIUM 132 mmol/L (136-145); UREA NITROGEN 21 mg/dL (7-18); eGFR NON AFRICAN AMERICAN 44 mL/min (90-120)
[2019-04-21 12:32] LABS: CALC OSMOLALITY 299 mosm/kg (275-300); TROPONIN-I < 0.017 ng/mL (0.000-0.060)
[2019-04-21 12:36] LABS: GLUCOSE 675 mg/dL (74-106)
--- NOTE | 2019-04-21 12:36 | NUR ---
CRITICAL LAB: GLUCOSE 675 MG/DL DR MENESES NOTIFIED
[2019-04-21 12:37] VITALS: BP 176/108
[2019-04-21 13:31] LABS: KETONE - SERUM NEGATIVE (NEGATIVE)
[2019-04-21 13:48] LABS: PHOSPHOROUS 4.1 mg/dL (2.5-4.9); THYROID STIMULATING HORMONE 0.69 uIU/mL (0.36-3.74)
[2019-04-21 17:39] LABS: APPEARANCE CLEAR (CLEAR); BILIRUBIN NEGATIVE (NEGATIVE); COLOR STRAW (YELLOW); GLUCOSE 500 mg/dL (NEGATIVE); KETONE NEGATIVE (NEGATIVE); NITRITE NEGATIVE (NEGATIVE); PROTEIN TRACE mg/dL (NEGATIVE); SPECIFIC GRAVITY 1.005 (1.005-1.020); UROBILINOGEN NORMAL (NORMAL)
[2019-04-21 17:43] LABS: BACTERIA FEW /hpf (NEGATIVE); EPITHELIAL CELLS 0-5 /hpf (0-5); RED CELLS - URINE 0-5 /hpf (0-5); WHITE CELLS - URINE 0-5 /hpf (NEGATIVE)
[2019-04-21 17:44] LABS: UDS - AMPHET NEGATIVE QUAL (NEGATIVE); UDS - BARB NEGATIVE QUAL (NEGATIVE); UDS - BENZO NEGATIVE QUAL (NEGATIVE); UDS - COCAINE NEGATIVE QUAL (NEGATIVE); UDS - OPIATE POSITIVE QUAL (NEGATIVE); UDS - PCP NEGATIVE QUAL (NEGATIVE); UDS - THC NEGATIVE QUAL (NEGATIVE)
[2019-04-21 18:25] VITALS: BP 186/114; BMI 34.5
--- NOTE | 2019-04-21 18:41 | NUR ---
PATIENT IS HERE FROM THE ER. WE ARE TO MONITOR HER BLOOD SUGAR. SHE IS ALERT AND ORIENTED AND DENIES ANY NEEDS AT THIS TIME. HER BLOOD PRESSURE IS HIGH, AND REPORTED TO DARIO GARCIA.
[2019-04-21 20:00] VITALS: BP 170/109
[2019-04-21 21:22] LABS: ANION GAP 13.2 mmol/L (8-16); CALCIUM 8.6 mg/dL (8.5-10.1); CARBON DIOXIDE 27.3 mmol/L (21.0-32.0); CREATININE - SERUM 1.5 mg/dL (0.6-1.3)
[2019-04-21 21:24] LABS: POTASSIUM - SERUM 5.5 mmol/L (3.5-5.1)
--- NOTE | 2019-04-21 21:51 | NUR ---
PT A/O X4. RRE EVEN AND UNLABORED. BLOOD SUGAR LAB DRAW 784. DARIO GARCIA PAGED. NEW ORDERS ESTABLISHED. 1 LITER NS BOLUS AND 20 UNITS HUMULIN R GIVEN. REPEAT LAB DRAW 2330. CARDAZIM STARTED AT 5ML/HR. TELE-117 ST. BP-183/106. BED LOW CALL LIGHT WITHIN REACH. WILL CONTINUE TO MONITOR.
[2019-04-22] VITALS (22 sets, daily range): BP systolic 117–187; BP diastolic 84–116; Ht 147.3 cm; Wt 75.3 kg
[2019-04-22 00:12] LABS: ANION GAP 13.5 mmol/L (8-16); CALCIUM 8.3 mg/dL (8.5-10.1); CARBON DIOXIDE 25.5 mmol/L (21.0-32.0); CREATININE - SERUM 1.5 mg/dL (0.6-1.3)
--- NOTE | 2019-04-22 01:55 | NUR ---
PT REPORT CALLED TO ICU AT THIS TIME. TRANSFER ORDERSESTABLISHED. PT A/O X4 RR EVEN AND UNLABORED.
--- NOTE | 2019-04-22 02:47 | NUR ---
REPORT RECEIVED. PT ARRIVED TO ICU VIA WHEELCHAIR, ACCOMPANIED BY NURSING STAFF. PT TRANSFERRED TO BED INDEPENDENTLY. PERSONAL BELONGINGS KEPT IN ROOM PER PT REQUEST. ROOM AIR, PIV IN RT WRIST INFUSING, SEE IV FLOWSHEET. ASSESSMENT COMPLETED, SEE FLOWSHEET. WILL CONTINUE TO MONITOR.
--- NOTE | 2019-04-22 03:00 | NUR ---
PT RESTING IN BED, AAOX4. NO ACUTE DISTRESS AT THIS TIME.
--- NOTE | 2019-04-22 05:00 | NUR ---
PT RESTING IN BED, NO ACUTE DISTRESS NOTED. WILL CONTINUE TO MONITOR.
[2019-04-22 05:09] LABS: BASOPHILS 0 % (0-2); EOSINOPHILS 0.2 % (0-7); HEMATOCRIT 30.5 % (36.0-48.0); HEMOGLOBIN 9.5 g/dL (12-16); IMMATURE GRANULOCYTES 0.7 % (0-5); LYMPHOCYTES 15.7 % (15-50); MCH 23.2 pg (26.0-34.0); MCHC 31.1 g/dL (31.0-37.0); MCV 74.4 fL (80.0-100.0); MONOCYTES 4.1 % (2-11); NEUTROPHILS 79.3 % (40-80); PLATELET COUNT 213 10x3/uL (130-400); RDW 15.2 % (11.5-14.5); WBC 8.1 10x3/uL (4.8-10.8)
[2019-04-22 05:22] LABS: ANION GAP 11.5 mmol/L (8-16); CALCIUM 8.1 mg/dL (8.5-10.1); CARBON DIOXIDE 28.9 mmol/L (21.0-32.0); MAGNESIUM - SERUM 1.5 mg/dL (1.8-2.4)
[2019-04-22 05:23] LABS: CREATININE - SERUM 1.1 mg/dL (0.6-1.3); PHOSPHOROUS 2.7 mg/dL (2.5-4.9); POTASSIUM - SERUM 3.4 mmol/L (3.5-5.1)
--- NOTE | 2019-04-22 10:28 | NUR ---
0825-PT STATED HUNGRY-NEEDS SOMETHING TO EAT-DOESN'T FEEL RIGHT-FSBS 57-TURNED INSULIN GTT OFF-120ML OF OJ AND 0.5 AMP D50W GIVEN-N/S STARTED AT 125ML/H-NOTED NOT INFUSING PREVIOUSLY ORDERED- 0845-LAB AT BEDSIDE- SERUM GLUCOSE CHECK DONE AT THIS TIME-127 1000-C/O BACK PAIN 01/13-MORPHINE 4MG IVP SLOW GIVEN-FSBS 113-NO INSULIN GTT RESTARTED AT THIS TIME -REMAINS NPO
[2019-04-22 13:04] LABS: CARBON DIOXIDE 29.7 mmol/L (21.0-32.0); CHLORIDE - SERUM 103 mmol/L (98-107); SODIUM 140 mmol/L (136-145)
[2019-04-22 13:05] LABS: CALC OSMOLALITY 280 mosm/kg (275-300); CREATININE - SERUM 0.7 mg/dL (0.6-1.3); GLUCOSE 139 mg/dL (74-106); POTASSIUM - SERUM 4.7 mmol/L (3.5-5.1); UREA NITROGEN 13 mg/dL (7-18); eGFR NON AFRICAN AMERICAN > 90 mL/min (90-120)
--- NOTE | 2019-04-22 18:59 | NUR ---
1130-SIGNIFICANT OTHER AND PT EXPRESSING EXTREME ANGER AT NO FOOD -NO DOCTOR-POINTED OUT IS IN UNIT SITTING ACROSS FROM ROOM-REVIEWING ALL THE CHARTS-AND THEY ARE NOT FORGOTTEN 1330-DR GARDNER AT BEDSIDE AND SPOKE WITH BOTH PT AND SIGNIFICANT OTHER-ANSWERED QUESTIONS ADDRESSED TO HIM-LUNCH TRAY PROVIDED 1630-INSULIN GTT STOPPED-S/S SCALE FOLLOWED 1730-CALLED PHARMACY FOR LEVIMIR INSULIN 1X DOSE
[2019-04-22 19:19] LABS: ANION GAP 11.1 mmol/L (8-16); CARBON DIOXIDE 29.5 mmol/L (21.0-32.0)
[2019-04-22 19:21] LABS: CREATININE - SERUM 0.9 mg/dL (0.6-1.3); POTASSIUM - SERUM 5.6 mmol/L (3.5-5.1)
--- NOTE | 2019-04-22 19:30 | NUR ---
REPORT REC'D AND CARE ASSUMED, RECD PT SITTING UP IN BED VISITING WITH FAMILY, CHIP CRUMBS NOTED ON LINEN, PT DENIES EATING ANYTHING STATES " IT WAS MY DAUGHTER", RIGHT WRIST PIV SALINE LOCKED, PT MAEE, DENIES PAIN AT THIS TIME, REQUESTING ICE WATER, ICE WATER PROVIDED, PT DENIES FURTHER NEEDS, BED IN LOW POSITION, CALL LIGHT IN REACH.
--- NOTE | 2019-04-22 20:35 | NUR ---
EVENING MEDS GIVEN ORDERED, PT RESTING QUIETLY IN BED WATCHING TV, BP STABLE, WILL CONT TO MONITOR FOR CHANGES.
--- NOTE | 2019-04-22 23:35 | NUR ---
PT TEXT FAMILY MEMBER AND HAD THEM CALL THE NURSES STATION TO SAY SHE HAD FALLEN AND NEEDED ASSISTANCE, UPON ENTERING ROOM, PT WAS LYING IN BED BEDSIDE TABLE AT BS, PURSE AND CHARGING CORD SETTING IN FLOOR, BSC IN CLOSE PROXIMTY, PT STATES " I HAVE BEEN PUSHING THAT BUTTON FOR TWO HOURS" " I NEED MY PAIN MEDICATION, NAUSEA MEDICATION AND SOMETHING TO EAT", UPON CHECKING CALL LIGHT NOT WORKING, UPON INVESTIGATION CALL LIGHT CORD SLIGHTLY PULLED FROM WALL, PLUGGED CALL LIGHT IN SECURELY AND TESTED, FOUND TO BE IN WORKING ORDER, ZOFRAN 4MG AND MORPHINE 4 MG PROVIDED FOR PAIN RATING OF "10" TO BACK AND CHEST, ASKED PT WHERE SHE FELL, POINTS TO FLOOR IN FRONT OF BSC, ASKED PT WHY SHE DID NOT CALL OUT WHEN NO ONE RESPONDED TO HER CALL LIGHT WITHIN A REASONABLE AMOUNT OF TIME, PT WOULD NOT ANSWER, FSBS CHECKED AT THIS TIME, 402, LAB NOTIFIED.
[2019-04-23 00:40] LABS: ANION GAP 13.9 mmol/L (8-16); CARBON DIOXIDE 27.5 mmol/L (21.0-32.0); CREATININE - SERUM 0.9 mg/dL (0.6-1.3)
--- NOTE | 2019-04-23 00:40 | NUR ---
LAB AT FOR GLUCOSE RECHECK AFTER CRITICAL RESULT.
[2019-04-23 00:47] LABS: POTASSIUM - SERUM 6.4 mmol/L (3.5-5.1)
--- NOTE | 2019-04-23 01:05 | NUR ---
NOTED IN PHYSICIAN PROGRESS NOTE TO CONTINUE FSBS Q4HRS AND RESUME REGULAR INSULIN INTERMEDIATE S/S, HOLD REMOVED, AND PT TREATED WITH 20UNITS REGULAR INSULIN SUBQ TO LEFT ARM, PT DENIES FURTHER NEEDS.
--- NOTE | 2019-04-23 03:00 | NUR ---
PT RESTING IN BED EYES CLOSED, RESP EVEN AND UNLABORED, VSS, WILL CONT TO MONITOR FOR CHANGES.
--- NOTE | 2019-04-23 04:45 | NUR ---
PT SITTING UP WATCHING TV, PT ASKING FOR "PAIN/NAUSEA" MEDS, 4MG ZOFRAN AND 4MG MORPHINE GIVEN SLOW IVP, ICE WATER PROVIDED, PT DENIES FURTHER NEEDS, WILL MONITOR FOR CHANGES.
[2019-04-23 04:55] LABS: BASOPHILS 0.1 % (0-2); EOSINOPHILS 1.2 % (0-7); HEMATOCRIT 34.2 % (36.0-48.0); HEMOGLOBIN 10.5 g/dL (12-16); IMMATURE GRANULOCYTES 0.6 % (0-5); LYMPHOCYTES 26.2 % (15-50); MCH 23.3 pg (26.0-34.0); MCHC 30.7 g/dL (31.0-37.0); MCV 75.8 fL (80.0-100.0); MONOCYTES 7.5 % (2-11); NEUTROPHILS 64.4 % (40-80); PLATELET COUNT 229 10x3/uL (130-400); RBC 4.51 10x6/uL (4.00-5.40); RDW 15.8 % (11.5-14.5); WBC 6.7 10x3/uL (4.8-10.8)
[2019-04-23 04:58] LABS: CALC OSMOLALITY 281 mosm/kg (275-300); CALCIUM 8.5 mg/dL (8.5-10.1); CARBON DIOXIDE 30.2 mmol/L (21.0-32.0); CHLORIDE - SERUM 105 mmol/L (98-107); CREATININE - SERUM 0.8 mg/dL (0.6-1.3); GLUCOSE 105 mg/dL (74-106); KETONE - SERUM NEGATIVE (NEGATIVE); MAGNESIUM - SERUM 1.7 mg/dL (1.8-2.4); PHOSPHOROUS 3.2 mg/dL (2.5-4.9); POTASSIUM - SERUM 4.6 mmol/L (3.5-5.1); SODIUM 141 mmol/L (136-145); UREA NITROGEN 16 mg/dL (7-18); eGFR NON AFRICAN AMERICAN 84 mL/min (90-120)
--- NOTE | 2019-04-23 06:50 | NUR ---
REPORT CALLED TO JACKIE ON MED III
--- NOTE | 2019-04-23 07:00 | NUR ---
PT TAKEN TO ROOM 1209 AND ASSISTED INTO BED, SR UP X 2, CALL LIGHT IN REACH.
--- NOTE | 2019-04-23 07:11 | NUR ---
PT ARRIVED TO FLOOR VIA W/C FROM ICU. A&O, RR EVEN AND UNLABORED. NO S/SX OF DISTRESS NOTED. NO NEEDS EXPRESSED. CALL LIGHT IN REACH. WILL MONITOR.
[2019-04-23 08:18] VITALS: BP 135/81
--- NOTE | 2019-04-23 08:50 | NUR ---
REC'D PT LYING IN BED RESP EVEN AND UNLABORED LUNG SOUNDS CLEAR HEART RATE REGULAR NO EDEMA NOTED TO BLE. AOX4 PT DENIES PAIN AT THIS TIME SRX2 BED AT LOWEST SETTING BRAKES ON AT THIS TIME CALL LIGHT WITHIN REACH WILL CONTINUE TO MONITOR
[2019-04-23 13:43] VITALS: BP 171/112
[2019-04-23 16:00] VITALS: BP 138/107
--- NOTE | 2019-04-23 19:00 | NUR ---
PT SITTING UP IN BED WITHOUT DISTRESS, FAMILY AT BEDSIDE. BOWEL SOUNDS ACTIVE, LUNGS CTA. IV RIGHT WRIST SL, FLUSHES EASILY. FSBS 338, 12 UNITS GIVEN. DENIES OTHER NEEDS. WILL CTM
[2019-04-23 19:39] VITALS: BP 155/105
--- NOTE | 2019-04-23 23:00 | NUR ---
PT REQUESTED AND GIVEN MORPHINE AND ZOFRAN FOR PAIN 10/10 AND NAUSEA. FSBS 311, GAVE 12 UNITS PER SS. DENIES OTHER NEEDS, WILL CTM
[2019-04-24 00:10] VITALS: BP 140/102
--- NOTE | 2019-04-24 01:53 | NUR ---
PT RESTING QUIETLY WITH FAMILY AT BEDSIDE. WILL CTM
--- NOTE | 2019-04-24 03:00 | NUR ---
PT STATES PAIN 10/10 IN BACK AND SIDE. REQUESTED AND GIVEN MORPHINE AND ZOFRAN. FSBS 106, NO COVERAGE PER SS. REQUESTED POPSICLE AND WATER. DENIES OTHER NEEDS. WILL CTM
[2019-04-24 04:23] VITALS: BP 118/84
[2019-04-24 06:55] LABS: BASOPHILS 0.2 % (0-2); EOSINOPHILS 1.3 % (0-7); HEMATOCRIT 35.3 % (36.0-48.0); HEMOGLOBIN 10.6 g/dL (12-16); IMMATURE GRANULOCYTES 0.5 % (0-5); LYMPHOCYTES 23.9 % (15-50); MCH 22.8 pg (26.0-34.0); MCV 76.1 fL (80.0-100.0); MONOCYTES 8.1 % (2-11); PLATELET COUNT 254 10x3/uL (130-400); RBC 4.64 10x6/uL (4.00-5.40); RDW 15.6 % (11.5-14.5)
[2019-04-24 07:24] LABS: ANION GAP 7.5 mmol/L (8-16); CALCIUM 8.6 mg/dL (8.5-10.1); CARBON DIOXIDE 35.8 mmol/L (21.0-32.0); MAGNESIUM - SERUM 1.3 mg/dL (1.8-2.4); PHOSPHOROUS 5.8 mg/dL (2.5-4.9); POTASSIUM - SERUM 4.3 mmol/L (3.5-5.1)
[2019-04-24 07:44] VITALS: BP 138/97
== END 2019-04-24 13:37 | disposition home or self-care (01) | DRG 638 ==
LOC: D.ER 11:28 → D.ICU 17:28 → D.M2 17:28 → D.ICU 04-22 02:23 → D.M3 04-23 07:02
PROVIDERS: Emergency Medicine; ADMIT Internal Medicine Nephrology; ATTEND Internal Medicine Nephrology
DX: E11.65 Type 2 diabetes mellitus with hyperglycemia (principal); N17.9 Acute kidney failure, unspecified; E87.1 Hypo-osmolality and hyponatremia; E87.5 Hyperkalemia; I16.0 Hypertensive urgency; I11.0 Hypertensive heart disease with heart failure; I50.9 Heart failure, unspecified; K21.9 Gastro-esophageal reflux disease without esophagitis; D57.3 Sickle-cell trait; D50.9 Iron deficiency anemia, unspecified; D86.9 Sarcoidosis, unspecified; Z91.14 Patient's other noncompliance with medication regimen

== ENCOUNTER 2019-04-30 00:49 | Emergency (ER) | payer MEDICAID ==
[~2019-04-30] VITALS: Ht 147.3 cm; Wt 77.3 kg
[2019-04-30 00:54] VITALS: Ht 147.3 cm; Wt 77.3 kg
[2019-04-30 01:26] LABS: BASOPHILS 0.1 % (0-2); EOSINOPHILS 0.3 % (0-7); HEMATOCRIT 29.4 % (36.0-48.0); HEMOGLOBIN 9.2 g/dL (12-16); IMMATURE GRANULOCYTES 0.6 % (0-5); LYMPHOCYTES 16.2 % (15-50); MCH 23.4 pg (26.0-34.0); MCHC 31.3 g/dL (31.0-37.0); MCV 74.6 fL (80.0-100.0); MONOCYTES 9.5 % (2-11); NEUTROPHILS 73.3 % (40-80); PLATELET COUNT 193 10x3/uL (130-400); RBC 3.94 10x6/uL (4.00-5.40); RDW 15.9 % (11.5-14.5)
[2019-04-30 01:36] LABS: CALC OSMOLALITY 289 mosm/kg (275-300); CALCIUM 8.6 mg/dL (8.5-10.1); CARBON DIOXIDE 29.9 mmol/L (21.0-32.0); CHLORIDE - SERUM 103 mmol/L (98-107); POTASSIUM - SERUM 3.2 mmol/L (3.5-5.1); SODIUM 141 mmol/L (136-145); UREA NITROGEN 18 mg/dL (7-18); eGFR NON AFRICAN AMERICAN 65 mL/min (90-120)
[2019-04-30 01:38] LABS: GLUCOSE 233 mg/dL (74-106)
[2019-04-30 01:40] LABS: KETONE - SERUM NEGATIVE (NEGATIVE)
[2019-04-30 01:43] LABS: ALKALINE PHOSPHATASE 138 U/L (30-120); ALT (SGPT) 17 U/L (10-68); BILIRUBIN - TOTAL 0.63 mg/dL (0.2-1.3); PROTEIN - SERUM 7.1 g/dL (6.4-8.2)
[2019-04-30 02:25] LABS: APPEARANCE CLEAR (CLEAR); BILIRUBIN NEGATIVE (NEGATIVE); COLOR YELLOW (YELLOW); GLUCOSE 500 mg/dL (NEGATIVE); KETONE NEGATIVE (NEGATIVE); NITRITE NEGATIVE (NEGATIVE); PROTEIN TRACE mg/dL (NEGATIVE); RED CELLS - URINE 0-5 /hpf (0-5); SPECIFIC GRAVITY 1.015 (1.005-1.020); UROBILINOGEN NORMAL (NORMAL); WHITE CELLS - URINE NSEEN /hpf (NEGATIVE)
[2019-04-30 02:35] VITALS: BP 150/74
== END 2019-04-30 02:35 | disposition home or self-care (01) ==
LOC: D.ER 00:49
PROVIDERS: Family Medicine
DX: E11.65 Type 2 diabetes mellitus with hyperglycemia (principal); Z91.14 Patient's other noncompliance with medication regimen; J45.909 Unspecified asthma, uncomplicated; I11.0 Hypertensive heart disease with heart failure; I50.9 Heart failure, unspecified; K21.9 Gastro-esophageal reflux disease without esophagitis; Z79.4 Long term (current) use of insulin

== ENCOUNTER 2019-05-02 07:01 | Emergency (ER) | payer MEDICAID ==
[~2019-05-02] VITALS: Ht 147.3 cm; Wt 77.3 kg
[2019-05-02 07:07] VITALS: Ht 147.3 cm; Wt 77.3 kg
[2019-05-02 07:38] LABS: CALC OSMOLALITY 291 mosm/kg (275-300); CALCIUM 7.9 mg/dL (8.5-10.1); CHLORIDE - SERUM 109 mmol/L (98-107); CREATININE - SERUM 0.8 mg/dL (0.6-1.3); SODIUM 146 mmol/L (136-145); UREA NITROGEN 15 mg/dL (7-18); eGFR NON AFRICAN AMERICAN 84 mL/min (90-120)
[2019-05-02 07:39] LABS: BASOPHILS 0.1 % (0-2); EOSINOPHILS 1.5 % (0-7); GLUCOSE 103 mg/dL (74-106); HCG SERUM NEGATIVE (NEGATIVE); HEMATOCRIT 28.7 % (36.0-48.0); HEMOGLOBIN 8.5 g/dL (12-16); IMMATURE GRANULOCYTES 0.9 % (0-5); LYMPHOCYTES 21.3 % (15-50); MCH 23.2 pg (26.0-34.0); MCHC 29.6 g/dL (31.0-37.0); MCV 78.4 fL (80.0-100.0); MONOCYTES 6.7 % (2-11); NEUTROPHILS 69.5 % (40-80); PLATELET COUNT 206 10x3/uL (130-400); RBC 3.66 10x6/uL (4.00-5.40); RDW 16.9 % (11.5-14.5); WBC 6.8 10x3/uL (4.8-10.8)
[2019-05-02 07:47] LABS: ALBUMIN 2.8 g/dL (3.4-5.0); ALKALINE PHOSPHATASE 82 U/L (30-120); ALT (SGPT) 24 U/L (10-68); AMYLASE - SERUM 65 U/L (25-115); BILIRUBIN - TOTAL 1.21 mg/dL (0.2-1.3); LIPASE 102 U/L (73-393); PROTEIN - SERUM 6.1 g/dL (6.4-8.2); TROPONIN-I < 0.017 ng/mL (0.000-0.060)
[2019-05-02 08:00] LABS: UDS - AMPHET NEGATIVE QUAL (NEGATIVE); UDS - BARB NEGATIVE QUAL (NEGATIVE); UDS - BENZO NEGATIVE QUAL (NEGATIVE); UDS - COCAINE NEGATIVE QUAL (NEGATIVE); UDS - OPIATE NEGATIVE QUAL (NEGATIVE); UDS - PCP NEGATIVE QUAL (NEGATIVE); UDS - THC NEGATIVE QUAL (NEGATIVE)
[2019-05-02 08:18] LABS: APPEARANCE HAZY (CLEAR); BILIRUBIN NEGATIVE (NEGATIVE); COLOR YELLOW (YELLOW); GLUCOSE NEGATIVE (NEGATIVE); KETONE NEGATIVE (NEGATIVE); NITRITE NEGATIVE (NEGATIVE); PROTEIN NEGATIVE (NEGATIVE); SPECIFIC GRAVITY 1.015 (1.005-1.020)
[2019-05-02 08:19] LABS: BACTERIA MODERATE /hpf (NEGATIVE); EPITHELIAL CELLS 0-5 /hpf (0-5); RED CELLS - URINE RARE /hpf (0-5); WHITE CELLS - URINE OCC /hpf (NEGATIVE)
[2019-05-02 08:20] LABS: MUCUS <1+ /lpf (NONE SEEN)
[2019-05-02] MEDS ORDERED: CHRONULAC30 ML PO (11:29)
[2019-05-02] MEDS ORDERED: LEVAQUIN750 MG PO (11:29)
[2019-05-02 12:24] VITALS: BP 157/97
== END 2019-05-02 12:20 | disposition home or self-care (01) ==
LOC: D.ER 07:01
PROVIDERS: Family Medicine
DX: J18.8 Other pneumonia, unspecified organism (principal); K59.00 Constipation, unspecified; Z91.14 Patient's other noncompliance with medication regimen; I10 Essential (primary) hypertension; E11.9 Type 2 diabetes mellitus without complications

== ENCOUNTER 2019-06-02 09:28 | Emergency (ER) | payer MEDICAID ==
[~2019-06-02] VITALS: Ht 147.3 cm; Wt 81.8 kg
[~2019-06-02 09:28] MED LIST changes: +ALBUTEROL SULF8.5 GM INH; +AZITHROMYCIN500 MG PO; +CATAPRES0.1 MG PO; +CHRONULAC30 ML PO; +FLOVENT DISKU250 MCG INH; +LASIX80 MG PO; +LEVAQUIN750 MG PO; +LISINOPRIL20 MG PO; +MORPHINE SULFAT30 MG PO; +MUCINEX600 MG PO; +OXYCONTIN40 MG PO; +PREDNISONE50 MG PO; +PROCARDIA XL60 MG PO
[2019-06-02 09:38] VITALS: BP 157/114; Ht 147.3 cm; Wt 81.8 kg
[2019-06-02 11:19] LABS: BILIRUBIN NEGATIVE (NEGATIVE); EPITHELIAL CELLS 0-5 /hpf (0-5); GLUCOSE 500 mg/dL (NEGATIVE); KETONE NEGATIVE (NEGATIVE); NITRITE NEGATIVE (NEGATIVE); RED CELLS - URINE 0-5 /hpf (0-5); UROBILINOGEN NORMAL (NORMAL); WHITE CELLS - URINE RARE /hpf (NEGATIVE)
[2019-06-02 11:20] LABS: BACTERIA FEW /hpf (NEGATIVE)
[2019-06-02 11:43] LABS: ANION GAP 13.4 mmol/L (8-16); CALCIUM 8.3 mg/dL (8.5-10.1); CARBON DIOXIDE 22.7 mmol/L (21.0-32.0); CREATININE - SERUM 0.9 mg/dL (0.6-1.3); POTASSIUM - SERUM 4.1 mmol/L (3.5-5.1)
[2019-06-02 11:48] LABS: ALBUMIN 2.8 g/dL (3.4-5.0); BILIRUBIN - TOTAL 0.19 mg/dL (0.2-1.3); PROTEIN - SERUM 6.9 g/dL (6.4-8.2)
[2019-06-02 11:54] LABS: BASOPHILS 0.4 % (0-2); EOSINOPHILS 0.8 % (0-7); HEMATOCRIT 32.3 % (36.0-48.0); HEMOGLOBIN 9.6 g/dL (12-16); IMMATURE GRANULOCYTES 0.2 % (0-5); LYMPHOCYTES 23.1 % (15-50); MCH 22.7 pg (26.0-34.0); MCHC 29.7 g/dL (31.0-37.0); MCV 76.4 fL (80.0-100.0); MONOCYTES 6.8 % (2-11); NEUTROPHILS 68.7 % (40-80); PLATELET COUNT 233 10x3/uL (130-400); RBC 4.23 10x6/uL (4.00-5.40); RDW 16.2 % (11.5-14.5); WBC 4.7 10x3/uL (4.8-10.8)
[2019-06-02] MEDS ORDERED: DOXYCYCLINE HY100 M2 PO (12:15)
[2019-06-02] MEDS ORDERED: AUGMENTIN 875-11 TAB PO (12:15)
[2019-06-02] MEDS ORDERED: ZOFRAN ODT4 MG/UDTAB PO (12:34)
[2019-06-02] MEDS ORDERED: BENTYL 20 MG TA20 MG PO (12:34)
== END 2019-06-02 15:45 | disposition home or self-care (01) ==
LOC: D.ER 09:28
PROVIDERS: Emergency Medicine
DX: J18.9 Pneumonia, unspecified organism (principal); J06.9 Acute upper respiratory infection, unspecified; E11.9 Type 2 diabetes mellitus without complications; D86.9 Sarcoidosis, unspecified; I50.9 Heart failure, unspecified; I11.0 Hypertensive heart disease with heart failure; J45.909 Unspecified asthma, uncomplicated; K21.9 Gastro-esophageal reflux disease without esophagitis; Z79.4 Long term (current) use of insulin

== ENCOUNTER 2019-07-12 21:59 | Inpatient (IN) | payer MEDICAID ==
[~2019-07-12] VITALS: Ht 147.3 cm; Wt 86.2 kg
[~2019-07-12 21:59] MED LIST changes: +AUGMENTIN 875-11 TAB PO; +BENTYL 20 MG TA20 MG PO; +DOXYCYCLINE HY100 M2 PO; +ZOFRAN ODT4 MG/UDTAB PO
[2019-07-12 23:12] LABS: BASOPHILS 0.2 % (0-2); EOSINOPHILS 1.9 % (0-7); HEMATOCRIT 38.2 % (36.0-48.0); HEMOGLOBIN 11.4 g/dL (12-16); IMMATURE GRANULOCYTES 0.7 % (0-5); LYMPHOCYTES 25.5 % (15-50); MCH 22.1 pg (26.0-34.0); MCHC 29.8 g/dL (31.0-37.0); MCV 74.2 fL (80.0-100.0); MEAN PLATELET VOLUME 9.9 fL (7.4-10.4); MONOCYTES 10.2 % (2-11); NEUTROPHILS 61.5 % (40-80); RBC 5.15 10x6/uL (4.00-5.40); RDW 17.6 % (11.5-14.5); WBC 5.4 10x3/uL (4.8-10.8)
[2019-07-12 23:13] LABS: PLATELET COUNT 353 10x3/uL (130-400)
[2019-07-12 23:19] LABS: APTT 25.6 SECONDS (22.8-39.4); INR 0.95 (0.85-1.17); PROTIME 12.7 SECONDS (11.6-15.0)
[2019-07-12 23:40] LABS: ALKALINE PHOSPHATASE 133 U/L (30-120); ALT (SGPT) 23 U/L (10-68); BILIRUBIN - TOTAL 0.23 mg/dL (0.2-1.3); C-REACTIVE PROTEIN 1.4 mg/dL (0.0-0.9); CALC OSMOLALITY 281 mosm/kg (275-300); CALCIUM 8.3 mg/dL (8.5-10.1); CARBON DIOXIDE 28.8 mmol/L (21.0-32.0); CHLORIDE - SERUM 97 mmol/L (98-107); CKMB 0.4 U/L (0.0-3.6); CREATINE KINASE 36 UL (21-215); CREATININE - SERUM 1.3 mg/dL (0.6-1.3); FERRITIN 28 ng/mL (3-244); POTASSIUM - SERUM 3.7 mmol/L (3.5-5.1); PRO BNP 145 pg/mL (0-125); PROTEIN - SERUM 7.3 g/dL (6.4-8.2); SODIUM 132 mmol/L (136-145); TROPONIN-I < 0.017 ng/mL (0.000-0.060); UREA NITROGEN 13 mg/dL (7-18); eGFR NON AFRICAN AMERICAN 48 mL/min (90-120)
[2019-07-13 00:14] LABS: GLUCOSE 405 mg/dL (74-106)
[2019-07-13 01:07] LABS: BILIRUBIN NEGATIVE (NEGATIVE); GLUCOSE 1000 mg/dL (NEGATIVE); KETONE NEGATIVE (NEGATIVE); NITRITE NEGATIVE (NEGATIVE); SPECIFIC GRAVITY 1.015 (1.005-1.020); UROBILINOGEN NORMAL (NORMAL)
[2019-07-13 03:19] VITALS: BP 145/101; BMI 39.8
--- NOTE | 2019-07-13 06:34 | NUR ---
FSBS 405 GIVEN 20 UNITS SUB Q PER ORDERS. CALL TO DISPOSAL WORKER NEW ORDERS TO CHANGE FSBS FROM AC & HS TO EVERY 4 HOURS WITH INTERMEDIATE S/S.
--- NOTE | 2019-07-13 06:37 | NUR ---
PATIENT CAME FROME ER WITH NO S/S OF DISTRESS ABLE TO TRANSFER SELF TO BED. CALL TO RANGE AIDE WHEN PT. REQUESTED PAIN MEDICATION. NEW ORDER GIVEN FOR MORPHINE 2MG EVERY 4 HOURS PRN. AND NEW ORDER FOR FSBS AT & WITH INTERMEDIATE S/S. PT FSBS WAS 405 IN ER WHEN SHE ARIVED AND FSBS WAS 257 WHEN SHE LEFT ER PER REPORT.
[2019-07-13 06:50] VITALS: BP 163/109
--- NOTE | 2019-07-13 07:40 | NUR ---
PT RESTING IN BED. RESP EVEN AND UNLABORED. PT REPORTS PAIN TO LOWER BACK 8/10 AT THIS TIME. IV TO LEFT AC WITH NS @ 100ML/HR INFUSING VIA PUMP. SITE WITHOUT REDNESS OR EDEMA. DENIES FURTHER NEEDS AT THIS TIME. CL WITHIN REACH. ENCOURAGED TO CALL WITH NEEDS. CONTINUE POC
[2019-07-13 08:58] VITALS: BP 165/107
--- NOTE | 2019-07-13 09:38 | NUR ---
PT RESTING QUIETLY IN BED. RESP EVEN AND UNLABORED. AM MEDICATIONS ADMINISTERED PER MD ORDERS. DENIES FURTHER NEEDS AT THIS TIME. CL WITHIN REACH. ENCOURAGED TO CALL WITH NEEDS.
[2019-07-13 10:11] LABS: % SATURATION 9 % (15-55); IRON 27 ug/dl (35-150); TOTAL IRON BIND CAPACITY 272 ug/dl (260-445); UNSAT IRON BIND CAPACITY 245 ug/dl (150-375)
[2019-07-13 10:20] LABS: CKMB 0.4 U/L (0.0-3.6); CREATINE KINASE 36 UL (21-215)
[2019-07-13 10:21] LABS: TROPONIN-I < 0.017 ng/mL (0.000-0.060)
--- NOTE | 2019-07-13 10:38 | NUR ---
PT REQUEST PAIN MEDICATION AT THIS TIME. ADMINISTERED PER MD ORDERS. EKG PERFORMED PER MD ORDERS AT THIS TIME. DENIES FURTHER NEEDS AT THIS TIME. CL WITHIN REACH. ENCOURAGED TO CALL WITH NEEDS.
--- NOTE | 2019-07-13 12:10 | NUR ---
PT TAKEN VIA W/C TO RADIOLOGY. NO ACUTE DISTRESS NOTED AT THIS TIME.
[2019-07-13 13:24] VITALS: Ht 147.3 cm; Wt 86.2 kg
[2019-07-13 13:28] LABS: BILIRUBIN NEGATIVE (NEGATIVE); GLUCOSE 1000 mg/dL (NEGATIVE); KETONE NEGATIVE (NEGATIVE); NITRITE NEGATIVE (NEGATIVE); UROBILINOGEN NORMAL (NORMAL)
[2019-07-13 13:31] LABS: UDS - AMPHET NEGATIVE QUAL (NEGATIVE); UDS - BARB NEGATIVE QUAL (NEGATIVE); UDS - BENZO NEGATIVE QUAL (NEGATIVE); UDS - COCAINE NEGATIVE QUAL (NEGATIVE); UDS - OPIATE POSITIVE QUAL (NEGATIVE); UDS - PCP NEGATIVE QUAL (NEGATIVE); UDS - THC NEGATIVE QUAL (NEGATIVE)
[2019-07-13 13:32] LABS: BACTERIA FEW /hpf (NEGATIVE); EPITHELIAL CELLS 0-5 /hpf (0-5); RED CELLS - URINE 0-5 /hpf (0-5); WHITE CELLS - URINE NSEEN /hpf (NEGATIVE); YEAST RARE /hpf (NONE SEEN)
--- NOTE | 2019-07-13 15:43 | NUR ---
DR. GARDNER PRESENT AT NURSES DESK HE IS MAKING ROUNDS. ASK WHY PT IS RECIEVING ANTIBIOTICS IV. INFORMED HIM OF ORDER. HE ASKED WHO ORDERED ANTIBIOTICS. INFORMED HIM OF PRESCRIBER. HE THEN STATES TO STAFF TO DISCONTINUE ALL ANTIBIOTICS PULMONOLOGY DOES NOT WANT HER ON ANY ANTIBIOTICS. VANCOMYCIN ADMINISTERING AT PRESENT TIME IV DISCONTINUED FROM PT.
[2019-07-13 16:22] LABS: CKMB 0.2 U/L (0.0-3.6); CREATINE KINASE 35 UL (21-215)
[2019-07-13 16:25] LABS: TROPONIN-I < 0.017 ng/mL (0.000-0.060)
[2019-07-13 18:29] VITALS: BP 138/88
--- NOTE | 2019-07-13 20:55 | NUR ---
UPON ENTERING ROOM FOR ASSESSMENT PT NOTED TO BE WEARING A MASK. ASKED PT WHY SHE HAD A MASK ON AND SHE STATES THAT SHE HAD TESTED POSITIVE FOR THE CORONAVIRUS A "WEEK OR 2 AGO". ASKED PT WHERE SHE HAD BEEN TESTED AT AND SHE STATES, "[facility]." ASKED IF IT WAS HERE IN [place] AND SHE SAID, "YES". ASKED IF SHE KNEW THE ACTUAL DATE AND SHE HESITANTLY STATED, "I DONT KNOW. LAST THURSDAY OR SOMETHING." STAFF THEN EXITED ROOM AND NOTIFIED RELIGIOUS EDUCATION TEACHER HARESH OF THIS. INSTRUCTED TO HAVE PT SIGN RELEASE OF HEALTH INFO AND TO CALL RELIGIOUS EDUCATION TEACHER AT [facility] FOR THE FAX NUMBER.
--- NOTE | 2019-07-13 21:00 | NUR ---
SPOKE WITH MECHANIC GENERAL OPERATIONAL TEST, KUNAL AT [facility] ABOUT NEEDING FAX NUMBER FOR RELEASE OF HEALTH INFO ON COVID TEST. HE STATES FAX IS [phone].
--- NOTE | 2019-07-13 21:40 | NUR ---
PT GIVEN PM MEDS. INFORMED PT THAT RELEASE OF HEALTH INFO NEEDED TO BE SIGNED IN ORDER TO OBTAIN COVID 19 TEST RESULTS FROM [facility]. PT FILLED OUT FORM AND SIGNED AT THIS TIME.
--- NOTE | 2019-07-13 21:47 | NUR ---
AUTHORIZATION FOR USE AND DISCLOSURE OF HEALTH INFORMATION FORM FAXED TO [facility] IN [place] [phone].
[2019-07-13 21:49] VITALS: BP 154/98
[2019-07-13 22:28] LABS: CKMB 0.3 U/L (0.0-3.6); CREATINE KINASE 38 UL (21-215)
[2019-07-13 22:29] LABS: TROPONIN-I < 0.017 ng/mL (0.000-0.060)
--- NOTE | 2019-07-13 22:40 | NUR ---
SPOKE WITH BROOKLYNN GARCIA ABOUT PT STATING SHE HAD RECENTLY TESTED POSITIVE FOR COVID 19 AT [facility]. HE STATES THAT NONE OF HER LABS WOULD INDICATE THAT SHE HAS IT UNLESS SHE HAS/HAD A MILD CASE OF IT. STILL WAITING ON KUNAL AT [facility] TO FAX OVER TEST RESULTS. SPOKE WITH LORRAINE SYED HOUSE SUP AGAIN AND HE STATES HE WILL SEND OVER RESULTS CHOCO.
--- NOTE | 2019-07-13 23:19 | NUR ---
EKG PERFORMED AT THIS TIME. EXPLAINED TO PT THAT HER COVID 19 TEST THAT WAS PERFORMED AT [facility] WAS NEGATIVE. PT HAD NO COMMENT.
--- NOTE | 2019-07-13 23:45 | NUR ---
PT AWARE OF NPO AFTER MN. PT GIVEN SNACK OF CRACKERS, PEANUT BUTTER AND MILK AT THIS TIME. CL IN REACH.
[2019-07-14] VITALS (7 sets, daily range): BP systolic 99–161; BP diastolic 58–113
--- NOTE | 2019-07-14 02:15 | NUR ---
B/P PER BRUSH OR BROOM CUTTER WAS VERY HIGH. MANUAL B/P TAKEN IN RT ARM AND WAS 130/70. ASSISTED PT INTO GOWN. DENIES ANY OTHER NEEDS. CL IN REACH. NO DISTRESS.
[2019-07-14 04:49] LABS: ANION GAP 11.4 mmol/L (8-16); CALCIUM 8.6 mg/dL (8.5-10.1); CARBON DIOXIDE 29.7 mmol/L (21.0-32.0); POTASSIUM - SERUM 4.1 mmol/L (3.5-5.1)
[2019-07-14 04:52] LABS: BASOPHILS 0 % (0-2); EOSINOPHILS 0 % (0-7); HEMATOCRIT 34.5 % (36.0-48.0); HEMOGLOBIN 10.5 g/dL (12-16); IMMATURE GRANULOCYTES 0.6 % (0-5); LYMPHOCYTES 7.2 % (15-50); MCHC 30.4 g/dL (31.0-37.0); MCV 72.3 fL (80.0-100.0); NEUTROPHILS 88.2 % (40-80); PLATELET COUNT 314 10x3/uL (130-400); RBC 4.77 10x6/uL (4.00-5.40); RDW 17.3 % (11.5-14.5)
[2019-07-14 04:54] LABS: WBC 8.9 10x3/uL (4.8-10.8)
[2019-07-14 04:55] LABS: CREATININE - SERUM 0.9 mg/dL (0.6-1.3)
--- NOTE | 2019-07-14 05:34 | NUR ---
MEDICATED WITH MORPHINE FOR C/O BACK PAIN RATING 10. CL IN REACH.
--- NOTE | 2019-07-14 08:00 | NUR ---
PATIENT AWAKE AND ALERT. LAYING ON RIGHT SIDE. WANTS TO KNOW WHEN SHE IS ABLE TO HAVE PAIN MEDICATION. I TOLD HER SHE HAD IT AROUND 530 SO IF ITS EVERY 4 HR SHE SHOULD BE ABLE TO HAVE MORE AROUND 930. CL IN REACH. NO FURTHER NEEDS AT THIS TIME. WCTM
--- NOTE | 2019-07-14 11:00 | NUR ---
PATIENT REQUESTED A COKE AND A SANDWICH. I REPLIED SHE COULD HAVE A DIET COKE HOWEVER LUNCH IS ABOUT TO ARRIVE. SHE STATED A DIET COKE WOULD BE JUST FINE. CL IN REACH. WCTM
--- NOTE | 2019-07-14 15:33 | NUR ---
NOTIFIED César AGRAWAL APN OF BLOOD GLUCOSE LEVEL OF 493. ADVISED TO CHANGE HER TO A HIGH RESISTANT SCALE AND TO GIVE REMAINING UNITS OFF THAT.
--- NOTE | 2019-07-14 21:59 | NUR ---
SPOKE WITH IRISH MOSS GATHERER ORDERS FOR FSBS WERE Q4 D AT 2300, 0700, 1100, 1500, 1900, ORDERS CHANGED TO EVERY 4 HOURS STARTING AT 0000, 0400, 0800, 1200, 1600, 2000
[2019-07-15] VITALS: BP 127/73
--- NOTE | 2019-07-15 00:08 | NUR ---
FSBS 72 GAVE APPLE JUICE PER REQUEST WHEN OFFERED A SNACK
[2019-07-15 04:00] VITALS: BP 118/73
[2019-07-15 08:24] LABS: HEMATOCRIT 36.6 % (36.0-48.0); HEMOGLOBIN 10.8 g/dL (12-16); MCHC 29.5 g/dL (31.0-37.0); PLATELET COUNT 264 10x3/uL (130-400); RBC 4.91 10x6/uL (4.00-5.40); RDW 18.2 % (11.5-14.5)
[2019-07-15 08:34] LABS: MCV 74.5 fL (80.0-100.0)
[2019-07-15 08:44] LABS: ANION GAP 15.2 mmol/L (8-16); CALCIUM 9.2 mg/dL (8.5-10.1); CARBON DIOXIDE 28.8 mmol/L (21.0-32.0)
[2019-07-15 09:39] VITALS: BP 163/94
[2019-07-15 11:03] LABS: LYMPHOCYTES 6 % (15-50); MONOCYTES 8 % (2-11); NEUTROPHILS 86 % (40-80); PLATELET ESTIMATE NORMAL
[2019-07-15] MEDS ORDERED: SMZ-TMP DS 800-1 TAB PO (12:00)
[2019-07-15] MEDS ORDERED: PROTONIX40 MG PO (12:01)
[2019-07-15 12:48] VITALS: BP 133/87
--- NOTE | 2019-07-15 14:32 | NUR ---
IV THERAPY REMOVED FROM LEFT AC TIP INTACT. DISCHARGE INSTRUCTIONS GIVEN. PATIENT VERBALIZED UNDERSTANDING. WILL NOTIFY ME WHEN RIDE IS OUT FRONT.
--- NOTE | 2019-07-15 16:54 | MORECARE ---
CASE MANAGEMENT DISCHARGE SUMMARY PATIENT: ERYN CONTRERAS UNIT: [id number] ADM DATE: 07/13/19 AGE: 38 : 78 SEX: F ROOM/BED: D.2205 AUTHOR: FATOUMATA RAMIREZ PHYSICIAN: REFERRING PHYSICIAN: KARO GARDNER MD DATE OF SERVICE: 07/15/19 Discharge Plan Patient Name: ERYN CONTRERAS [facility] [facility] 1980 Planned Disposition: Anticipated Discharge Date: Discharge Date: 07/15/2019 Expected LOS: 0 Initial Reviewer: [email or web address] Initial Review Date: 07/15/2019 Generated: 07/15/19 5:53 pm Patient Name: ERYN CONTRERAS Page [phone] at 1654 All edits/amendments must be made on the electronic document DICTATION DATE: 07/15/191652 COMPUTER TRAINING SPECIALIST: CAROLINA 07/15/191652 RPT#: [id number] DC DATE:07/15/19 STATUS: DIS IN [facility] [address] [place] [place] [address] END OF REPORT
== END 2019-07-15 14:48 | disposition home or self-care (01) | DRG 196 ==
LOC: D.ER 21:59 → D.MS 07-13 01:49
PROVIDERS: Emergency Medicine; ADMIT Internal Medicine Nephrology; ATTEND Internal Medicine Nephrology
DX: D86.9 Sarcoidosis, unspecified (principal); J18.9 Pneumonia, unspecified organism; E87.1 Hypo-osmolality and hyponatremia; D53.9 Nutritional anemia, unspecified; E83.42 Hypomagnesemia; I10 Essential (primary) hypertension; E11.9 Type 2 diabetes mellitus without complications; K21.9 Gastro-esophageal reflux disease without esophagitis; E53.8 Deficiency of other specified B group vitamins; R00.0 Tachycardia, unspecified; E66.01 Morbid (severe) obesity due to excess calories; Z68.39 Body mass index [BMI] 39.0-39.9, adult

== ENCOUNTER 2019-08-12 01:35 | Observation (INO) | payer MEDICAID ==
[~2019-08-12] VITALS: Ht 147.3 cm; Wt 86.4 kg
[~2019-08-12 01:35] MED LIST changes: +SMZ-TMP DS 800-1 TAB PO
[2019-08-12 02:15] LABS: BASOPHILS 0 % (0-2); EOSINOPHILS 1.2 % (0-7); HEMATOCRIT 35.9 % (36.0-48.0); HEMOGLOBIN 10.8 g/dL (12-16); IMMATURE GRANULOCYTES 0.5 % (0-5); LYMPHOCYTES 20.4 % (15-50); MCH 22.7 pg (26.0-34.0); MCHC 30.1 g/dL (31.0-37.0); MCV 75.4 fL (80.0-100.0); MONOCYTES 7.4 % (2-11); NEUTROPHILS 70.5 % (40-80); PLATELET COUNT 202 10x3/uL (130-400); RBC 4.76 10x6/uL (4.00-5.40); RDW 20.2 % (11.5-14.5); WBC 5.8 10x3/uL (4.8-10.8)
[2019-08-12 02:21] LABS: INR 0.86 (0.85-1.17); PROTIME 11.7 SECONDS (11.6-15.0)
[2019-08-12 02:22] LABS: D-DIMER-QUANTITATIVE 0.36 ug/mLFEU (0.20-0.54)
[2019-08-12 02:31] LABS: ALBUMIN 3.1 g/dL (3.4-5.0); ALKALINE PHOSPHATASE 220 U/L (30-120); ALT (SGPT) 18 U/L (10-68); BILIRUBIN - TOTAL 0.45 mg/dL (0.2-1.3); C-REACTIVE PROTEIN 2.1 mg/dL (0.0-0.9); CALCIUM 8.4 mg/dL (8.5-10.1); CHLORIDE - SERUM 93 mmol/L (98-107); CREATINE KINASE 73 UL (21-215); CREATININE - SERUM 1.3 mg/dL (0.6-1.3); LIPASE 66 U/L (73-393); MAGNESIUM - SERUM 1.7 mg/dL (1.8-2.4); POTASSIUM - SERUM 3.8 mmol/L (3.5-5.1); PRO BNP 137 pg/mL (0-125); PROTEIN - SERUM 7.1 g/dL (6.4-8.2); SODIUM 131 mmol/L (136-145); UREA NITROGEN 20 mg/dL (7-18); eGFR NON AFRICAN AMERICAN 48 mL/min (90-120)
[2019-08-12 02:45] LABS: CALC OSMOLALITY 299 mosm/kg (275-300); GLUCOSE 709 mg/dL (74-106); TROPONIN-I < 0.017 ng/mL (0.000-0.060)
--- NOTE | 2019-08-12 03:59 | NUR ---
I have reviewed this patient and I concur with the Shift Assessment completed by the Licensed Practical Nurse today this shift.
[2019-08-12 05:54] LABS: BILIRUBIN NEGATIVE (NEGATIVE); GLUCOSE 1000 mg/dL (NEGATIVE); KETONE NEGATIVE (NEGATIVE); NITRITE NEGATIVE (NEGATIVE); SPECIFIC GRAVITY 1.005 (1.005-1.020); UROBILINOGEN NORMAL (NORMAL)
[2019-08-12 05:56] LABS: UDS - AMPHET NEGATIVE QUAL (NEGATIVE); UDS - BARB NEGATIVE QUAL (NEGATIVE); UDS - BENZO NEGATIVE QUAL (NEGATIVE); UDS - COCAINE NEGATIVE QUAL (NEGATIVE); UDS - OPIATE NEGATIVE QUAL (NEGATIVE); UDS - PCP NEGATIVE QUAL (NEGATIVE); UDS - THC NEGATIVE QUAL (NEGATIVE)
[2019-08-12 06:01] LABS: BACTERIA FEW /hpf (NEGATIVE); EPITHELIAL CELLS 0-5 /hpf (0-5); RED CELLS - URINE 0-5 /hpf (0-5); WHITE CELLS - URINE 0-5 /hpf (NEGATIVE)
[2019-08-12 07:25] VITALS: BP 180/110
--- NOTE | 2019-08-12 07:34 | NUR ---
ADMISSION COMPLETE. PATIENT C/O BACK PAIN AND CHEST PAIN 01/13. BP 180/100. TAKES PAIN MEDICATION AT HOME WELL FOUR BLOOD PRESSURE MEDICATIONS. RADHA СВЕТЛАНА NOTIFIED OF SITUATION. ROTARY VENEER MACHINE OPERATOR ALSO NOTIFIED THAT PATIENT IV BAD AND WILL LIKELY NEED VASCULAR ACCESS SO WILL NEED PO MEDICATION AT THIS TIME. STATES WILL PUT ORDERS IN NOW. PATIENT DENIES OTHER NEEDS AT THIS TIME. WILL CONTINUE TO MONITOR. CALL HARDWICK AND PERSONAL ITEMS IN REACH.
[2019-08-12 08:00] VITALS: BP 180/110
[2019-08-12 08:27] VITALS: Ht 147.3 cm; Wt 86.4 kg
[2019-08-12 12:00] VITALS: BP 117/69
--- NOTE | 2019-08-12 12:46 | NUR ---
SITTING IN BED EATING LUNCH. DENIES NEEDS. WILL CONTINUE TO MONITOR.
[2019-08-12] MEDS ORDERED: Lantus Insulin SC (13:26)
--- NOTE | 2019-08-12 13:54 | NUR ---
IV REMOVED FROM RFA FOR DISCHARGE WITH TIP INTACT.
--- NOTE | 2019-08-12 14:39 | NUR ---
DISCHARGE EDUCATION PROVIDED BOTH WRITTEN AND VERBAL. VERBALIZED UNDERSTANDING. DENIES FURTHER QUESTIONS. PATIENT DC HOME WITH ALL BELONGINGS.
== END 2019-08-12 14:40 | disposition home or self-care (01) ==
LOC: D.ER 01:35 → D.MS 03:27 → OBSVTIME 03:27 → D.MS 03:27
PROVIDERS: Family Medicine; ADMIT Internal Medicine Nephrology; ATTEND Internal Medicine Nephrology
DX: E11.65 Type 2 diabetes mellitus with hyperglycemia (principal); D50.9 Iron deficiency anemia, unspecified; N17.9 Acute kidney failure, unspecified; E87.1 Hypo-osmolality and hyponatremia; E83.42 Hypomagnesemia; I10 Essential (primary) hypertension; K21.9 Gastro-esophageal reflux disease without esophagitis; E53.8 Deficiency of other specified B group vitamins; G89.29 Other chronic pain; M54.9 Dorsalgia, unspecified

== ENCOUNTER 2019-10-13 15:55 | Emergency (ER) | payer MEDICAID ==
[~2019-10-13] VITALS: Ht 147.3 cm; Wt 86.2 kg
[2019-10-13 16:03] VITALS: BP 154/99; Ht 147.3 cm; Wt 86.2 kg
[2019-10-13 16:49] LABS: BASOPHILS 0.2 % (0-2); EOSINOPHILS 0.5 % (0-7); HEMATOCRIT 34.7 % (36.0-48.0); HEMOGLOBIN 10.7 g/dL (12-16); LYMPHOCYTES 27.6 % (15-50); MCHC 30.8 g/dL (31.0-37.0); MCV 74.6 fL (80.0-100.0); NEUTROPHILS 62.7 % (40-80); RBC 4.65 10x6/uL (4.00-5.40); RDW 14.8 % (11.5-14.5); WBC 4.4 10x3/uL (4.8-10.8)
[2019-10-13 16:52] LABS: PLATELET COUNT 254 10x3/uL (130-400)
[2019-10-13 17:17] LABS: CALC OSMOLALITY 283 mosm/kg (275-300); CARBON DIOXIDE 25.6 mmol/L (21.0-32.0); CHLORIDE - SERUM 102 mmol/L (98-107); POTASSIUM - SERUM 3.5 mmol/L (3.5-5.1); SODIUM 136 mmol/L (136-145); UREA NITROGEN 13 mg/dL (7-18); eGFR NON AFRICAN AMERICAN 65 mL/min (90-120)
[2019-10-13 17:19] LABS: GLUCOSE 322 mg/dL (74-106)
[2019-10-13 17:25] LABS: INR 0.93 (0.85-1.17); PROTIME 12.5 SECONDS (11.6-15.0)
[2019-10-13 17:41] LABS: ALBUMIN 3.2 g/dL (3.4-5.0); ALKALINE PHOSPHATASE 119 U/L (30-120); ALT (SGPT) 22 U/L (10-68); BILIRUBIN - TOTAL 0.46 mg/dL (0.2-1.3); CKMB 0.6 U/L (0.0-3.6); CREATINE KINASE 66 UL (21-215); MAGNESIUM - SERUM 1.4 mg/dL (1.8-2.4); PROTEIN - SERUM 7.3 g/dL (6.4-8.2)
[2019-10-13 17:42] LABS: TROPONIN-I < 0.017 ng/mL (0.000-0.060)
[2019-10-13] MEDS ORDERED: ZANAFLEX4 MG PO (21:14)
[2019-10-13] MEDS ORDERED: HYDROCODON-ACE1 EAC7 PO (21:14)
[2019-10-13] MEDS ORDERED: AUGMENTIN 875-11 TAB PO (21:14)
== END 2019-10-13 20:45 | disposition home or self-care (01) ==
LOC: D.ER 15:55
PROVIDERS: Family Medicine
DX: R07.89 Other chest pain (principal); K08.89 Other specified disorders of teeth and supporting structures; E11.65 Type 2 diabetes mellitus with hyperglycemia; E83.42 Hypomagnesemia; I11.0 Hypertensive heart disease with heart failure; I50.9 Heart failure, unspecified; K21.9 Gastro-esophageal reflux disease without esophagitis; Z79.4 Long term (current) use of insulin

== ENCOUNTER 2019-10-24 02:41 | Observation (INO) | payer OTHER ==
[~2019-10-24] VITALS: Ht 147.3 cm; Wt 89.5 kg
[~2019-10-24 02:41] MED LIST changes: +CIPRO500 MG PO; +FUROSEMIDE20 MG PO; +HYDROCODON-ACE1 EAC7 PO; -LASIX80 MG PO; +LISINOPRIL2.5 MG PO; -LISINOPRIL20 MG PO; +PREDNISONE20 MG PO; -PREDNISONE50 MG PO; +ZANAFLEX4 MG PO
[2019-10-24 03:06] LABS: BASOPHILS 0.2 % (0-2); EOSINOPHILS 0.6 % (0-7); HEMOGLOBIN 9.1 g/dL (12-16); IMMATURE GRANULOCYTES 0.4 % (0-5); MCH 22.6 pg (26.0-34.0); MCHC 29.4 g/dL (31.0-37.0); MCV 76.9 fL (80.0-100.0); MONOCYTES 11.6 % (2-11); NEUTROPHILS 73.2 % (40-80); RBC 4.03 10x6/uL (4.00-5.40); WBC 5.4 10x3/uL (4.8-10.8)
[2019-10-24 03:07] LABS: PLATELET COUNT 185 10x3/uL (130-400)
[2019-10-24 03:38] LABS: ALBUMIN 2.5 g/dL (3.4-5.0); ANION GAP 9.8 mmol/L (8-16); BILIRUBIN - TOTAL 0.5 mg/dL (0.2-1.3); CALCIUM 7.9 mg/dL (8.5-10.1); CARBON DIOXIDE 29.5 mmol/L (21.0-32.0); CREATININE - SERUM 1.5 mg/dL (0.6-1.3); POTASSIUM - SERUM 5.3 mmol/L (3.5-5.1); PROTEIN - SERUM 6.1 g/dL (6.4-8.2); THYROID STIMULATING HORMONE 2.51 uIU/mL (0.36-3.74)
[2019-10-24 04:04] LABS: BILIRUBIN NEGATIVE (NEGATIVE); GLUCOSE 1000 mg/dL (NEGATIVE); KETONE NEGATIVE (NEGATIVE); NITRITE NEGATIVE (NEGATIVE); SPECIFIC GRAVITY 1.005 (1.005-1.020); UROBILINOGEN NORMAL (NORMAL)
[2019-10-24 04:05] LABS: HCG URINE NEGATIVE (NEGATIVE)
[2019-10-24 04:14] LABS: UDS - AMPHET NEGATIVE QUAL (NEGATIVE); UDS - BARB NEGATIVE QUAL (NEGATIVE); UDS - BENZO NEGATIVE QUAL (NEGATIVE); UDS - COCAINE NEGATIVE QUAL (NEGATIVE); UDS - OPIATE POSITIVE QUAL (NEGATIVE); UDS - PCP NEGATIVE QUAL (NEGATIVE); UDS - THC NEGATIVE QUAL (NEGATIVE)
[2019-10-24 04:57] VITALS: BP 108/66
--- NOTE | 2019-10-24 05:20 | NUR ---
PT ARRIVED TO FLOOR FROM ER VIA STRETCHER. AMBULATED TO BED. PT KEEPS DRIFTING OFF TO SLEEP BETWEEN ANSWERING QUESTIONS BUT IS ORIENTED WHEN AROUSES. REVIEWED HOME MEDS AND HISTORY. PT SAYS SHE IS NAUSEATED AND RATES BACK PAIN 8/10. BOLUS FINISHED AND NS @ 150 INFUSING.
[2019-10-24] MEDS ORDERED: LANTUS SOLOSTAR3 ML SC (05:35)
[2019-10-24] MEDS ORDERED: DIFLUCAN200 MG PO (05:38)
[2019-10-24] MEDS ORDERED: METOPROLOL-HCT1 EACH PO (05:43)
[2019-10-24] MEDS ORDERED: ZANAFLEX2 M1 PO (05:48)
[2019-10-24] MEDS ORDERED: LIPITOR40 MG PO (05:49)
[2019-10-24] MEDS ORDERED: CARDIZEM60 MG PO (05:50)
[2019-10-24] MEDS ORDERED: HYDRALAZINE HC100 MG PO (05:51)
[2019-10-24] MEDS ORDERED: SYMBICORT 16010.2 GM INH (05:52)
[2019-10-24] MEDS ORDERED: HUMALOG 30100 UNITS/ SC (05:53)
[2019-10-24] MEDS ORDERED: HYDROCODON-ACE1 EAC7 PO (05:54)
[2019-10-24 06:39] VITALS: BP 102/65; BMI 41.3
[2019-10-24 08:00] VITALS: BP 107/64
[2019-10-24 12:25] VITALS: BP 108/73
[2019-10-24 14:25] VITALS: Ht 147.3 cm; Wt 89.5 kg
[2019-10-24 16:56] VITALS: BP 121/77
[2019-10-24 20:00] VITALS: BP 129/66
--- NOTE | 2019-10-24 20:25 | NUR ---
SITTING UP IN BED EATING PIZZA AND DRINKING A SODA. ADVISED ON DIABETIC DIET. PT IS NONCOMPLIANT. ALERT AND ORIENTED X4. RESP NONLABORED. REPORTS SOB. NONPROD COUGH. TELEMETRY SHOWS SR WITH RATE OF 93. C/O BACK AND LEG PAIN 8. ABD IS DISTENDED AND FIRM. NS @ 150 ML/HR INFUSING IN LT CHEST/AXILLARY. AMBULATORY. VISITOR AT BEDSIDE. SR ELEVATED X2. CL IN REACH.
--- NOTE | 2019-10-24 23:15 | NUR ---
MEDICATED WITH MORPHINE AND ZOFRAN FOR C/O BACK PAIN AND NAUSEA. CL IN REACH.
--- NOTE | 2019-10-25 03:30 | NUR ---
MEDICATED WITH MORPHINE AND ZOFRAN FOR C/O PAIN AND NAUSEA. CL IN REACH.
[2019-10-25 04:00] VITALS: BP 132/69
[2019-10-25 06:27] LABS: ALBUMIN 2.6 g/dL (3.4-5.0); BILIRUBIN - TOTAL 0.45 mg/dL (0.2-1.3); CALCIUM 8.3 mg/dL (8.5-10.1); CARBON DIOXIDE 31.9 mmol/L (21.0-32.0); PROTEIN - SERUM 6.4 g/dL (6.4-8.2)
[2019-10-25 06:34] LABS: CREATININE - SERUM 0.9 mg/dL (0.6-1.3)
[2019-10-25 06:42] LABS: BASOPHILS 0 % (0-2); EOSINOPHILS 1.6 % (0-7); HEMATOCRIT 33.7 % (36.0-48.0); IMMATURE GRANULOCYTES 0.5 % (0-5); LYMPHOCYTES 14.4 % (15-50); MCH 22.7 pg (26.0-34.0); MCHC 29.7 g/dL (31.0-37.0); MCV 76.4 fL (80.0-100.0); MONOCYTES 7.6 % (2-11); NEUTROPHILS 75.9 % (40-80); PLATELET COUNT 197 10x3/uL (130-400); RBC 4.41 10x6/uL (4.00-5.40); RDW 15.9 % (11.5-14.5); WBC 6.4 10x3/uL (4.8-10.8)
[2019-10-25 06:44] LABS: ANION GAP 8.4 mmol/L (8-16)
[2019-10-25 06:45] LABS: POTASSIUM - SERUM 4.3 mmol/L (3.5-5.1)
--- NOTE | 2019-10-25 07:30 | NUR ---
PATIENT EASILY AWAKENED. CL IN REACH. REQUESTS AND WILL RECIEVE ZOFRAN AND MORPHINE PER EMAR. NO FURTHER NEEDS AT THIS TIME. WCTM
[2019-10-25 08:00] VITALS: BP 172/90
[2019-10-25 11:59] VITALS: BP 122/70
--- NOTE | 2019-10-25 16:19 | MORECARE ---
CASE MANAGEMENT DISCHARGE SUMMARY PATIENT: ERYN CONTRERAS UNIT: [id number] ADM DATE: 10/24/19 AGE: 38 : 78 SEX: F ROOM/BED: D.2230 AUTHOR: FATOUMATA RAMIREZ PHYSICIAN: REFERRING PHYSICIAN: FREDA GAINES MD DATE OF SERVICE: 10/25/19 Discharge Plan Patient Name: ERYN CONTRERAS Facility: [facility]:[place] : 1980 Planned Disposition: Anticipated Discharge Date: Discharge Date: Expected LOS: Initial Reviewer: [email or web address] Initial Review Date: 10/24/2019 Generated: 10/25/19 5:18 pm Comments DCP- Discharge Planning Updated by [email or web address]: Jill Almazan on 10/25/19 3:[address] Patient Name: ERYN CONTRERAS Admission Status: ER Accout number: [id number] Admission Date: 10-24-2019 : 1980 Admission Diagnosis: Attending: FREDA GAINES Current LOS: 1 Anticipated DC Date: Planned Disposition: Primary Insurance: [facility] Discharge Planning Comments: CM met with patient at bedside after explaining CM role and obtaining verbal consent. CM discussed availability / needs of home health, REHAB and medical equipment. 02 SAT DROPPED TO 87 DURING WALK TEST. REFERRAL FAXED TO [facility] FOR 02 NEEDS. PATIENT TO BE DISCHARGED AFTER PORTABLE OXYGEN IS DELIVERED. Airline Reservation Agent: Jill Almazan External Providers External Provider: MONICANelia Next Contact Date: Service Request Date: Service Type: Resolution: Reviewer: Comments: Coverage Notice Reviewer: [email or web address] - Jill Almazan Notice Issued Date-Time: 10/25/2019 16:13 Notice Type: Patient Choice Letter Notice Delivered To: Relationship to Patient: Cobbler Upper Name: Delivery Method: HAND - Hand Delivered Maribel Days: Prior Verbal Notification: Recipient Understood Notice: Yes Recipient Signature: Yes Med Rec Note Co-signed by Attending: Coverage Notice Comment: [facility] NEGRETE Patient Name: ERYN CONTRERAS Page [phone] at 1619 All edits/amendments must be made on the electronic document DICTATION DATE: 10/25/19 1618 RIVETING MACHINE OPERATOR TAPE CONTROL: CAROLINA 10/25/19 1618 RPT#: [id number] DC DATE: STATUS: ADM IN [facility] [address] [place] [address] END OF REPORT
--- NOTE | 2019-10-25 16:30 | NUR ---
IV THERAPY DC'ED FROM LEFT CHEST. TIP INTACT. WAITING ON O2 TO ARRIVE. HERE. REFUSES WHEELCHAIR DOWN. TM
--- NOTE | 2019-10-26 08:46 | MORECARE ---
CASE MANAGEMENT DISCHARGE SUMMARY PATIENT: ERYN CONTRERAS UNIT: [id number] ADM DATE: 10/24/19 AGE: 38 : 76 SEX: F ROOM/BED: D.2230 AUTHOR: FATOUMATA RAMIREZ PHYSICIAN: REFERRING PHYSICIAN: FREDA GAINES MD DATE OF SERVICE: 10/26/19 Discharge Plan Patient Name: ERYN CONTRERAS Facility: [facility]:[place] : 1980 Planned Disposition: Anticipated Discharge Date: Discharge Date: 10/25/2019 Expected LOS: Initial Reviewer: [email or web address] Initial Review Date: 10/24/2019 Generated: 10/26/19 9:45 am Comments DCP- Discharge Planning Updated by [email or web address]: Jill Almazan on 10/25/19 3:[address] Patient Name: ERYN CONTRERAS Admission Status: ER Accout number: [id number] Admission Date: 10-24-2019 : 1980 Admission Diagnosis: Attending: FREDA GAINES Current LOS: 1 Anticipated DC Date: Planned Disposition: Primary Insurance: [facility] Discharge Planning Comments: CM met with patient at bedside after explaining CM role and obtaining verbal consent. CM discussed availability / needs of home health, REHAB and medical equipment. 02 SAT DROPPED TO 87 DURING WALK TEST. REFERRAL FAXED TO [facility] FOR 02 NEEDS. PATIENT TO BE DISCHARGED AFTER PORTABLE OXYGEN IS DELIVERED. Child Care Cook: Jill Almazan Coverage Notice Reviewer: [id number] - Jill Almazan Notice Issued Date-Time: 10/25/2019 16:13 Notice Type: Patient Choice Letter Notice Delivered To: Relationship to Patient: Medical Assisting Instructor Name: Delivery Method: HAND - Hand Delivered Maribel Days: Prior Verbal Notification: Recipient Understood Notice: Yes Recipient Signature: Yes Med Rec Note Co-signed by Attending: Coverage Notice Comment: SCOTT Castaneda DP export: 10/25/19 3:19 p Patient Name: ERYN CONTRERAS Page [id number] at 0846 All edits/amendments must be made on the electronic document DICTATION DATE: 10/26/1945 INSPECTOR CANVAS PRODUCTS: CAROLINA 10/26/1947 RPT#: [id number] DC DATE:10/25/19 STATUS: DIS IN [facility] [address] [facility] [place] [address] END OF REPORT
== END 2019-10-25 16:41 | disposition home or self-care (01) ==
LOC: D.ER 02:41 → D.MS 04:06 → OBSVTIME 04:06 → D.MS 10-25 16:41
PROVIDERS: Emergency Medicine; Family Medicine; ADMIT Family Medicine; ATTEND Family Medicine
DX: G93.41 Metabolic encephalopathy (principal); E11.65 Type 2 diabetes mellitus with hyperglycemia; N39.0 Urinary tract infection, site not specified; E87.2 Acidosis; E87.1 Hypo-osmolality and hyponatremia; E87.5 Hyperkalemia; N17.9 Acute kidney failure, unspecified; D50.9 Iron deficiency anemia, unspecified; I10 Essential (primary) hypertension; J45.909 Unspecified asthma, uncomplicated; D86.9 Sarcoidosis, unspecified; E66.9 Obesity, unspecified

== ENCOUNTER 2019-12-12 21:06 | Inpatient (IN) | payer OTHER ==
[~2019-12-12] VITALS: Ht 147.3 cm; Wt 86.2 kg
[~2019-12-12 21:06] MED LIST changes: +CARDIZEM60 MG PO; +DIFLUCAN200 MG PO; +HUMALOG 30100 UNITS/ SC; +HYDRALAZINE HC100 MG PO; +LANTUS SOLOSTAR3 ML SC; +LIPITOR40 MG PO; +METOPROLOL-HCT1 EACH PO; +SYMBICORT 16010.2 GM INH; +ZANAFLEX2 M1 PO
[2019-12-12 22:03] LABS: BASOPHILS 0.2 % (0-2); EOSINOPHILS 1.9 % (0-7); HEMATOCRIT 34.5 % (36.0-48.0); HEMOGLOBIN 10.3 g/dL (12-16); LYMPHOCYTES 17.4 % (15-50); MCH 22.8 pg (26.0-34.0); MCHC 29.9 g/dL (31.0-37.0); MCV 76.3 fL (80.0-100.0); MONOCYTES 8.5 % (2-11); RBC 4.52 10x6/uL (4.00-5.40); RDW 17.6 % (11.5-14.5); WBC 4.8 10x3/uL (4.8-10.8)
[2019-12-12 22:06] LABS: PLATELET COUNT 315 10x3/uL (130-400)
[2019-12-12 22:12] LABS: CALC OSMOLALITY 288 mosm/kg (275-300); CALCIUM 8.6 mg/dL (8.5-10.1); CARBON DIOXIDE 32.7 mmol/L (21.0-32.0); CHLORIDE - SERUM 100 mmol/L (98-107); CREATININE - SERUM 1.1 mg/dL (0.6-1.3); POTASSIUM - SERUM 4.2 mmol/L (3.5-5.1); SODIUM 139 mmol/L (136-145); UREA NITROGEN 9 mg/dL (7-18); eGFR NON AFRICAN AMERICAN 58 mL/min (90-120)
[2019-12-12 22:15] LABS: APTT 28.3 SECONDS (22.8-39.4); INR 0.96 (0.85-1.17); PROTIME 12.7 SECONDS (11.6-15.0)
[2019-12-12 22:18] LABS: GLUCOSE 314 mg/dL (74-106)
[2019-12-12 22:30] LABS: ALBUMIN 2.9 g/dL (3.4-5.0); ALKALINE PHOSPHATASE 101 U/L (30-120); ALT (SGPT) 15 U/L (10-68); BILIRUBIN - TOTAL 0.49 mg/dL (0.2-1.3); C-REACTIVE PROTEIN 3.1 mg/dL (0.0-0.9); CREATINE KINASE 157 UL (21-215); PRO BNP 167 pg/mL (0-125); PROTEIN - SERUM 7.3 g/dL (6.4-8.2); TROPONIN-I < 0.017 ng/mL (0.000-0.060)
--- NOTE | 2019-12-12 23:50 | NUR ---
LAB AT BEDSIDE TO DRAW SECOND SET OF CULTURES
[2019-12-13] VITALS (7 sets, daily range): BP systolic 146–179; BP diastolic 88–108; Ht 147.3 cm; Wt 86.2 kg
--- NOTE | 2019-12-13 00:40 | NUR ---
INFUSION OF ROCEPHIN COMPLETE AT THIS TIME.
--- NOTE | 2019-12-13 02:00 | NUR ---
RECEIVED FROM ER. PT IS A&OX4, MEDS AND HISTORY COMPLETE, PLACED ON [id number], PT DENIES ANY NEEDS AT THIS TIME, BED IS LOW, SRX2, CALL LIGHT IN REACH, WILL CONTINUE PLAN OF CARE
[2019-12-13 06:55] LABS: ALKALINE PHOSPHATASE 96 U/L (30-120); ALT (SGPT) 12 U/L (10-68); BILIRUBIN - TOTAL 0.34 mg/dL (0.2-1.3); C-REACTIVE PROTEIN 2.9 mg/dL (0.0-0.9); CALC OSMOLALITY 280 mosm/kg (275-300); CARBON DIOXIDE 32.2 mmol/L (21.0-32.0); CHLORIDE - SERUM 101 mmol/L (98-107); FERRITIN 39 ng/mL (3-244); GLUCOSE 284 mg/dL (74-106); MAGNESIUM - SERUM 1.4 mg/dL (1.8-2.4); PHOSPHOROUS 3.5 mg/dL (2.5-4.9); POTASSIUM - SERUM 3.8 mmol/L (3.5-5.1); PRO BNP 135 pg/mL (0-125); SODIUM 136 mmol/L (136-145); TROPONIN-I < 0.017 ng/mL (0.000-0.060); UREA NITROGEN 10 mg/dL (7-18); eGFR NON AFRICAN AMERICAN 65 mL/min (90-120)
[2019-12-13 07:56] LABS: BASOPHILS 0.2 % (0-2); HEMATOCRIT 33.1 % (36.0-48.0); HEMOGLOBIN 9.9 g/dL (12-16); IMMATURE GRANULOCYTES 0.4 % (0-5); LYMPHOCYTES 21.9 % (15-50); MCH 22.9 pg (26.0-34.0); MCHC 29.9 g/dL (31.0-37.0); MCV 76.4 fL (80.0-100.0); MONOCYTES 8.5 % (2-11); RBC 4.33 10x6/uL (4.00-5.40); RDW 17.2 % (11.5-14.5); WBC 4.5 10x3/uL (4.8-10.8)
--- NOTE | 2019-12-13 08:00 | NUR ---
REPORT RECIEVED. PT LYING FOWLERS IN BED. RR EVEN AND UNLABORED ON RA. SHE HAS A L AC PIV INFUSING NS @ KVO. BED LOCKED AND IN LOWEST POSITION, CALL LIGHT WITHIN REACH. WILL CTM
[2019-12-13 08:07] LABS: PLATELET COUNT 224 10x3/uL (130-400)
--- NOTE | 2019-12-13 15:52 | NUR ---
I have reviewed this patient and I concur with the Shift Assessment completed by the Licensed Practical Nurse today this shift.
--- NOTE | 2019-12-13 18:00 | NUR ---
I have reviewed this patient and I concur with the Shift Assessment completed by the Licensed Practical Nurse today this shift.
--- NOTE | 2019-12-13 19:00 | NUR ---
REPORT RECEIVED, WILL CONTINUE POC. PATIENT IS AAOX4, LYING IN SUPINE POSITION. NO S/S OF DISTRESS OBSERVED, RR EVEN AND UNLABORED ON 2L O2 VIA NC. PATIENT DENIES NEEDS AT THIS TIME. CL IN REACH, BED LOCKED AND LOWERED. COVID 19 PRECAUTIONS MAINTAINED. WILL CTM.
--- NOTE | 2019-12-13 22:30 | NUR ---
PATIENT COVID TEST NEGATIVE PER LAB.
--- NOTE | 2019-12-13 23:16 | NUR ---
TEMP 102.7 PRN TYLENOL ADMINISTERED PER ORDERS.
--- NOTE | 2019-12-14 04:13 | NUR ---
TEMP 100.0 ADMINISTERED PRN TYLENOL PER ORDERS.
--- NOTE | 2019-12-14 05:09 | NUR ---
I have reviewed this patient and I concur with the Shift Assessment completed by the Licensed Practical Nurse today this shift.
[2019-12-14 06:01] VITALS: BP 156/94
[2019-12-14 06:03] VITALS: BP 150/98
[2019-12-14 06:53] LABS: BASOPHILS 0.2 % (0-2); EOSINOPHILS 0.9 % (0-7); HEMATOCRIT 31.4 % (36.0-48.0); IMMATURE GRANULOCYTES 0.2 % (0-5); LYMPHOCYTES 20.4 % (15-50); MCH 22.2 pg (26.0-34.0); MCHC 28.7 g/dL (31.0-37.0); MCV 77.5 fL (80.0-100.0); MONOCYTES 5.6 % (2-11); NEUTROPHILS 72.7 % (40-80); RBC 4.05 10x6/uL (4.00-5.40); RDW 16.9 % (11.5-14.5); WBC 4.3 10x3/uL (4.8-10.8)
[2019-12-14 07:03] LABS: PLATELET COUNT 273 10x3/uL (130-400)
[2019-12-14 07:04] LABS: ANION GAP 12.5 mmol/L (8-16); CALCIUM 7.8 mg/dL (8.5-10.1); CARBON DIOXIDE 28.5 mmol/L (21.0-32.0); CREATININE - SERUM 0.9 mg/dL (0.6-1.3); MAGNESIUM - SERUM 1.3 mg/dL (1.8-2.4); PHOSPHOROUS 3.6 mg/dL (2.5-4.9)
[2019-12-14 08:15] VITALS: BP 149/92
--- NOTE | 2019-12-14 10:34 | NUR ---
URINE SPECIMEN COLLECTED AND TAKEN TO LAB. WILL MONITOR.
[2019-12-14] MEDS ORDERED: ZITHROMAX250 MG PO (11:12)
[2019-12-14] MEDS ORDERED: OMNICEF300 MG PO (11:12)
[2019-12-14 11:13] LABS: BILIRUBIN NEGATIVE (NEGATIVE); KETONE NEGATIVE (NEGATIVE); NITRITE NEGATIVE (NEGATIVE); UROBILINOGEN NORMAL (NORMAL)
[2019-12-14 11:14] LABS: BACTERIA FEW /hpf (NONE SEEN); EPITHELIAL CELLS 0-5 /hpf (0-5); RED CELLS - URINE 0-5 /hpf (0-5); WHITE CELLS - URINE 0-5 /hpf (0-5)
[2019-12-14 11:29] VITALS: BP 155/88
--- NOTE | 2019-12-14 12:49 | NUR ---
IV AND TELEMETRY DCD. DC PLANS GIVEN. UNDERSTANDING VOICED. ESCORTED TO CAR BY W/C.
--- NOTE | 2019-12-14 18:05 | MORECARE ---
CASE MANAGEMENT DISCHARGE SUMMARY PATIENT: ERYN CONTRERAS UNIT: [id number] ADM DATE: 12/12/19 AGE: 38 : 76 SEX: F ROOM/BED: D.2131 AUTHOR: FATOUMATA RAMIREZ PHYSICIAN: REFERRING PHYSICIAN: JUANPABLO SEN MD DATE OF SERVICE: 12/14/19 Discharge Plan Patient Name: ERYN CONTRERAS Facility: [facility]:[place] : 1980 Planned Disposition: Left Against Medical Advice Anticipated Discharge Date: 12/14/19 Discharge Date: 12/14/2019 Expected LOS: 2 Initial Reviewer: [email or web address] Initial Review Date: 12/13/2019 Generated: 12/14/19 7:04 pm Patient Name: ERYN CONTRERAS Page [phone] at 1805 All edits/amendments must be made on the electronic document DICTATION DATE: 12/14/191803 HOMEBOUND TEACHER: CAROLINA 12/14/191803 RPT#: [id number] DC DATE:12/14/19 STATUS: DIS IN [facility] [address] [place] [address] END OF REPORT
== END 2019-12-14 12:50 | disposition home or self-care (01) | DRG 195 ==
LOC: D.ER 21:06 → D.M2 23:43
PROVIDERS: Family Medicine; ADMIT Family Medicine; ATTEND Family Medicine
DX: J18.9 Pneumonia, unspecified organism (principal); D50.9 Iron deficiency anemia, unspecified; E11.9 Type 2 diabetes mellitus without complications; I10 Essential (primary) hypertension; K21.9 Gastro-esophageal reflux disease without esophagitis; J45.909 Unspecified asthma, uncomplicated; D86.0 Sarcoidosis of lung; Z86.73 Personal history of transient ischemic attack (TIA), and cerebral infarction without residual deficits

== ENCOUNTER 2020-01-02 11:27 | Emergency (ER) | payer OTHER ==
[2019-12-13 12:39] VITALS: BMI 39.7
[~2020-01-02 11:27] MED LIST changes: +ZITHROMAX250 MG PO
== END 2020-01-02 11:30 | disposition left against medical advice (07) ==
LOC: D.ER 11:27
DX: R07.9 Chest pain, unspecified (principal)

== ENCOUNTER 2020-01-04 11:50 | Inpatient (IN) | payer OTHER ==
[~2020-01-04] VITALS: Ht 147.3 cm; Wt 90.7 kg
--- NOTE | ~2020-01-04 | HEMODYNAMI ---
PATIENT:ERYN CONTRERAS MEDICAL RECORD: [id number] : 76 LOCATION:[facility] [id number]# [id number] ADMISSION DATE: 01/04/20 Generatedon:01/05/202010:37 Patient name: ERYN CONTRERAS Patient #: [id number] SSN: [id number] : 1980 Date of study: 01/05/2020 Page: Of Hemodynamic Procedure Report Patient Data Patient Demographics Procedure consent was obtained First Name: ERYN Gender: Female Last Name: BEN : 1980 Patient #: [id number] Age: 39 year(s) Race: Black SSN: [id number] Additional ID: [id number] Contact details [address]: [address] [place] [address] State: [place] City: [place] Zip code: [address] Past Medical History Allergies Allergen Reaction Date Comments Reported Other allergy 01/05/2020 tramadol, ketorolac Admission Admission Data Admission Date: 01/04/2020 Admission Time: 16:31 Arrival Date: 01/05/2020 Arrival Time: 0:00 Admit Source: Other Insurance Payor: Private Room #: D.E02 health insurance [facility] #: [id number] Height (in.): 58 BSA: 1.82 (m2) Height (cm.): 147.32 BMI: 41.88 (kg/m2) Weight (lbs.): 200.4 Weight (kg.): 90.9 Lab Results Lab Result Date: 01/05/2020 Lab Result Time: 0:00 Biochemistry Name Units Result Min Max BUN mg/dl 6 -*(----)-- 7 18 CK-MB ng/ml 0.5 --(*---)-- 0 3.6 Creatinine mg/dl 0.8 --(-*--)-- 0.6 1.3 eGFR ml/min 90 --(*---)-- 90 120 AM Troponin l ng/ml 0.017 --(-*--)-- 0 0.06 CBC Name Units Result Min Max Hematocrit % 31 *-(----)-- 42 54 Hemoglobin g/dl 9.3 *-(----)-- 13.5 17.5 Procedure Procedure Types Cath Procedure Diagnostic Procedure [facility] w/Coronaries Procedure Description Procedure Date Procedure Date: 01/05/2020 Procedure Start Time: 10:27 Procedure End Time: 10:35 Procedure Staff Name Function Hilton Link MD Performing Physician Mari Ochoa RT Monitor Norma Conley RT Scrub Kalen Mast RN Nurse Procedure Data Cath Procedure Fluoroscopy Diagnostic fluoroscopy Total fluoroscopy Time: 0.9 time: 0.9 min min Diagnostic fluoroscopy Total fluoroscopy dose: 362 dose: 362 mGy mGy Contrast Material Contrast Material Type Amount (ml) Isovue 370 46 Entry Location Entry Primary Successful Side Size Upsize Upsize Entry Closure Succes sful Closure Location (Fr) 1 (Fr) 2 (Fr) Remarks Device Remarks Femoral Right Exoseal artery Estimated blood loss: 5 ml Diagnostic catheters Device Type Used For End Catheter Placement MULTIPACK JL 4.0 5Fr Procedure catheter MULTIPACK 3DRC 5Fr Procedure catheter MULTIPACK Pigtail 5 Fr Procedure catheter Procedure Complications No complications Procedure Medications Medication Administration Route Dosage 0.9% NaCl I.V. 100 ml/hr Oxygen etCO2 Nasal cannula 2 l/min Heparin Flush Bag added to field 2 bags (1000units/500ml NS) Lidocaine 2% added to field 20 Versed I.V. 2 mg Fentanyl I.V. 100 mcg Lopressor I.V. 5 mg Hemodynamics Rest BSA: 1.82 (m2) HGB: 9.3 (g/dl) O2 Consumption: Estimated: 212.64 (ml/min) O2 Con sumption indexed: Estimated:116.84 (ml/min/m) Heart Rate: 111 (bpm) Pressure Samples Time Site Value (mmHg) Purpose Heart Use Rate(bpm) 10:32 LV 59/-9,22 Snapshot 115 10:32 AO 167/85(130) Pullback 105 Gradients Valve Time Site Site 2 Mean SEP/DFP Peak To Heart Use 1 (mmHg) (sec/min) Peak Rate (mmHg) (bpm) Aortic 10:32 LV AO 35 12 105 167/85(130) Calculations Valve P-P Mean Valve Index Valve Source Name Gradient Area Flow (cm2) Aortic 35 35 Snapshots Pre Cath Intra NCS Post Cath Vital Signs Time Heart Resp SPO2 etCO2 NIBP (mmHg) Rhythm Pain Sedation Rate (ipm) (%) (mmHg) Status Level (bpm) 10:14:17 110 25 95 0 182/124(152) NSR 0 (11) 10(A) , No pain 10:18:57 108 12 94 0 173/116(144) NSR 0 (11) 10(A) , No pain 10:23:32 103 25 98 42.2 169/109(132) NSR 0 (11) 10(A) , No pain 10:28:04 109 26 98 58.8 170/102(137) NSR 0 (11) 10(A) , No pain 10:32:29 98 26 97 39.2 146/114(139) NSR 0 (11) 10(A) , No pain Medications Time Medication Route Dose Verified Delivered Reason Notes E ffectiveness by by 10:12:09 0.9% NaCl I.V. 100 Kalen Kalen Per ml/hr Pro Mast physician RN RN 10:12:20 Oxygen etCO2 2 Kalen Kalen for low 02 Nasal l/min Lorigan Pro sats cannula RN RN 10:12:36 Heparin Flush added 2 Kalen Kalen used for Bag to bags Pro Mast procedure (1000units/500ml [facility] RN RN NS) 10:12:47 Lidocaine 2% added 20ml Kalen Kalen for local to vial Lorigan Litaigan anesthetic RN RN 10:28:21 Versed I.V. 2 mg Kalen Kalen for sedation Pro Mast RN RN 10:28:30 Fentanyl I.V. 100 Kalen Kalen for sedation mcg Pro Mast RN RN 10:31:15 Lopressor I.V. 5 mg Kalen Kalen for Lorigan Lorjarett hypertension RN body presser Log Time Note 9:38:07 Informed consent obtained and on chart 9:38:11 Diagnostic Cath Status : Urgent 9:38:33 Procedure Status Urgent Heart Cath (IP). 9:38:36 Mari CLARKE(R) sent for patient. Start room use. 9:38:37 Time tracking: Regular hours (M-F 7:00 - 5:00) 9:38:41 Plan of Care:Hemodynamics will remain stable., Cardiac rhythm will remain stable., Comfort level will be maintained., Respiratory function will remain adequate., Patient/ family verbilizes understanding of procedure., Procedure tolerated without complication., Recovers from procedure without complications.. 9:48:46 H&P Date Dictated: 01/05/2020 ER History on chart.. 9:54:02 Pre-procedure instructions explained to patient. 9:54:03 Pre-op teaching completed and patient verbalized understanding. 9:54:06 Family unavailable. 9:54:07 Patient NPO since Midnight. 9:54:29 Patient allergic to Other allergytramadol, ketorolac 9:55:30 Lab Result : Creatinine 0.8 mg/dl 9:55:30 Lab Result : BUN 6 mg/dl 9:55:30 Lab Result : CK-MB 0.5 ng/ml 9:55:30 Lab Result : eGFR AM 90 ml/min 9:55:30 Lab Result : Troponin l 0.017 ng/ml 9:55:30 Lab Result : Hemoglobin 9.3 g/dl 9:55:30 Lab Result : Hematocrit 31 % 9:56:03 Lab results completed and on chart. 9:56:09 Stress Test: no; N/A ? 9:56:10 Alarms reviewed by R. N. 9:56:11 Sharps counted by scrub and verified by R.N. 9:58:54 Arrival Date: 01/05/2020 12:00:00 AM 9:58:54 Admit Source: Other 9:59:04 Insurance Payor : Private health insurance 9:59:21 Patient Height : 58 inches 9:59:34 Patient Weight : 200.4 lbs 10:00:32 Patient received from ED to CCL 1 Alert and oriented. Tansferred to table in Supine position. 10:01:46 Warm blankets applied, and chelsea hugger turned on for patient comfort. 10:01:47 Correct patient and procedure confirmed by team. 10:01:47 ECG and BP/O2 sat monitors applied to patient. 10:01:51 Is the patient allergic to Iodine/contrast media? No. 10:01:53 Was the patient premedicated? No 10:04:48 Is patient on blood thinner?No 10:04:51 Patient diabetic? Yes. 10:12:09 0.9% NaCl 100 ml/hr I.V. was administered by Kalen Lorigan RN; Per physician; Verbal order read back and verified. 10:12:20 Oxygen 2 l/min etCO2 Nasal cannula was administered by Kalen Mast RN; for low 02 sats; Verbal order read back and verified. 10:12:36 Heparin Flush Bag (1000units/500ml NS) 2 bags added to field was administered by Kalen Mast RN; used for procedure; Verbal order read back and verified. 10:12:47 Lidocaine 2% 20ml vial added to field was administered by Kalen Mast RN; for local anesthetic; Verbal order read back and verified. 10:12:54 Vital chart was started 10:15:58 Baseline sample Acquired. 10:15:59 Full Disclosure recording started 10:16:03 Rhythm: sinus tachycardia 10:16:14 If diabetic: On Metformin? No 10:16:16 ----Pre-sedation anethsthesia assessment.---- 10:16:19 Previous problem with sedation/anesthesia? No ? 10:16:20 Snore? Yes 10:16:23 Sleep apnea? Yes 10:16:24 Deviated septum? No 10:16:25 Opens mouth fully? Yes 10:16:26 Sticks out tongue? Yes 10:16:39 Airway obstruction? Yes SARCOIDOSIS, CHF 10:16:42 Dentures? No ? 10:16:44 Pre procedure: right dorsailis pedis pulse 2+ Normal; easily identifiable; not easily obliterated 10:16:48 Patient pain scale 0/10 ?. 10:16:57 IV patent on arrival in left antecubital with 0.9% NaCl at O. 10:17:04 Right groin area was prepped with chlora-prep and draped in sterile fashion 10:17:36 HCG/Urine : completed and on chart, negative 10:17:56 Use device set Femoral Dx 10:17:57 ACIST Syringe (86077) opened to sterile field. 10:17:57 Bag Decanter () opened to sterile field. 10:17:58 Medline Cath Pack ([id number]) opened to sterile field. 10:17:59 ACIST Hand Control (48630) opened to sterile field. 10:17:59 ACIST Manifold (64931) opened to sterile field. 10:18:00 DIAGNOSTIC Multipack 5Fr catheter set ([id number]) opened to sterile field. 10:18:01 SHEATH 5FR Coy ([id number]) opened to sterile field. 10:18:02 EMERALD Guide Wire (321-653) opened to sterile field. 10:25:00 1) 90+ Normal kidney functon but urine findings or structural abnormalities or genetic trait point to kidney disease. 10:25:00 Physical assessment completed. ASA score P 2 - A patient with mild systemic disease as per Hilton Link MD. 10:25:00 Sedation plan: IV Moderate Sedation Medication:Versed, Fentanyl 10:25:00 Maximum allowable contrast dose (3.7 X eGFR X 0.75)250 ml. 10:25:00 Final Timeout: patient, procedure, and site verified with staff and physician. All members of the team are in agreement. 10:25:00 --------ALL STOP TIME OUT------ 10:25:00 Fire Safety Assessment: A--An alcohol-based skin anteseptic being used preoperatively., C--Open oxygen or nitrous oxide is being used., D--An ESU, laser, or fiber-optic light is being used. 10:25:00 Right groin site verified by team. 10:27:40 Procedure started. 10:27:44 Local anesthetic to right femoral artery with Lidocaine 2% by Hilton Link MD.INITIAL ACCESS ONLY 10:28:02 A sheath was inserted into the Right Femoral artery 10:28:21 Versed 2 mg I.V. was administered by Kalen Mast RN; for sedation; Verbal order read back and verified. 10:28:30 Fentanyl 100 mcg I.V. was administered by Kalen Mast RN; for sedation; Verbal order read back and verified. 10:28:37 A MULTIPACK JL 4.0 5Fr catheter was advanced over the wire and used for Procedure. 10:28:56 LCA angiography performed. 10::59 Injector settings: Ml/sec: 3, Volume: 6, 10:30:06 Catheter removed. 10:31:09 A MULTIPACK 3DRC 5Fr catheter was advanced over the wire and used for Procedure. 10:31:12 RCA angiography performed. 10:31:15 Lopressor 5 mg I.V. was administered by Kalen Mast RN; for hypertension; Verbal order read back and verified. 10:31:15 Injector settings: Ml/sec: 3, Volume: 6, 10:31:28 Catheter removed. 10:31:46 A MULTIPACK Pigtail 5 Fr catheter was advanced over the wire and used for Procedure. 10:32:03 LV gram done using YANG 10:32:05 Injector settings: Ml/sec: 5, Volume: 15, 10:32:14 LV hemodynamics recorded. 10:32:19 EF : 55 % 10:32:26 Catheter removed. 10:32:37 EXOSEAL 5Fr (EX500) opened to sterile field. 10:32:55 Sheath removed intact; hemostasis achieved with Exoseal to the Right Femoral artery. 10:33:03 Fluoroscopy time 00.90 minutes. 10:33:07 Fluoroscopy dose: 362 mGy 10:33:07 Flurop Dose total: 362 10:33:12 Dose Area Product 36635 mGy/cm. 10:33:32 Procedure ended.(Physican Out) 10:33:40 Contrast amount:Isovue 370 46ml. 10:33:43 Maximum allowable dose exceeded? No. 10:33:44 Sharps counted by scrub and verified by R.N. 10:33:54 Post-op/insertion site Right Femoral artery dressed using a 4 x 4 and Tegaderm. 10:34:05 Post right femoral artery:stable, soft, clean and dry 10:34:07 Post Procedure Pulses reassessed and unchanged 10:34:10 Post procedure: right dorsailis pedis pulse 2+ Normal; easily identifiable; not easily obliterated. 10:34:14 Post-procedure physical assessment completed. ASA score P 2 - A patient with mild systemic disease as per Hilton Link MD. 10:34:17 Post procedure rhythm: unchanged. 10:34:20 Estimated blood loss: 5 ml 10:34:21 Post procedure instruction explained to patient.Patient verbalizes understanding. 10:34:22 Patient needs reinforcement of post procedure teaching. 10:35:32 Procedure and supply charges have been captured, reviewed, submitted and are correct. 10:35:36 Procedure Complication : No complications 10:35:38 Vital chart was stopped 10:35:40 [facility] Findings: mild to moderate CAD (<70%) 10:35:43 Operative report dictated upon procedure completion. 10:35:44 See physician's report for complete and final results. 10:35:46 Report given to Pre/Post Procedure Room. 10:35:49 Patient transfered to Pre/Post Procedure Room with Stretcher. 10:35:52 Procedure ended. 10:35:52 Full Disclosure recording stopped 10:36:01 End room use (Document Last) 10:36:12 End room use (Document Last) 10:36:30 End room use (Document Last) Device Usage Item Name Manufacture Quantity Catalog Hospital Part Current Minimal L ot# / Number Charge Number Stock Stock Serial# Code ACIST Acist 1 81283 203945 865917 736586 20 Syringe Medical (04986) Systems Inc Bag Microtek 1 2001S 865810 91909 023556 5 Decanter Medical Inc. () Medline Medline 1 [id number] 729837 71241 362459 5 Cath Pack ([id number]) ACIST Hand Acist 1 36312 310261 954890 309925 5 Control Medical (26136) Systems Inc ACIST Acist 1 22449 522432 286549 248722 5 Manifold Medical (15183) Systems Inc DIAGNOSTIC Cardinal 1 ZD0658 645642 27889 499266 30 Multipack Health 5Fr catheter set (CU0557) SHEATH 5FR Terumo 1 [id number] 692134 056330 274365 5 Coy (MDG690) EMERALD Cardinal 1 502-455 409340 733321 209320 5 Guide Wire Health (502455) MULTIPACK Cardinal 1 275528 5 JL 4.0 5Fr Health catheter MULTIPACK Cardinal 1 962347 5 3DRC 5Fr Health catheter MULTIPACK Cardinal 1 752365 5 Pigtail 5 Health Fr catheter EXOSEAL 5Fr Cardinal 1 EX500 606715 498287 788399 10 (EX500) Health Signature Audit [place] Stage Time Signature Unsigned Intra-Procedure 01/05/2020 Mari Ochoa 10:36:12 AM RT(R) Intra-Procedure 01/05/2020 Kalen 10:36:30 AM Pro RN Intra-Procedure 01/05/2020 Hilton Ortiz 10:37:00 AM [address] [place] [address]
[2020-01-04 13:18] LABS: BASOPHILS 0.4 % (0-2); EOSINOPHILS 1.9 % (0-7); HEMATOCRIT 34.4 % (36.0-48.0); HEMOGLOBIN 10.4 g/dL (12-16); IMMATURE GRANULOCYTES 0.2 % (0-5); LYMPHOCYTES 25.3 % (15-50); MCH 22.8 pg (26.0-34.0); MCHC 30.2 g/dL (31.0-37.0); MCV 75.3 fL (80.0-100.0); MONOCYTES 6.3 % (2-11); NEUTROPHILS 65.9 % (40-80); PLATELET COUNT 220 10x3/uL (130-400); RBC 4.57 10x6/uL (4.00-5.40); RDW 16.6 % (11.5-14.5); WBC 4.7 10x3/uL (4.8-10.8)
[2020-01-04 13:27] LABS: CALC OSMOLALITY 283 mosm/kg (275-300); CALCIUM 8.5 mg/dL (8.5-10.1); CARBON DIOXIDE 21.8 mmol/L (21.0-32.0); CHLORIDE - SERUM 103 mmol/L (98-107); CREATININE - SERUM 0.9 mg/dL (0.6-1.3); POTASSIUM - SERUM 3.8 mmol/L (3.5-5.1); SODIUM 136 mmol/L (136-145); UREA NITROGEN 10 mg/dL (7-18); eGFR NON AFRICAN AMERICAN 73 mL/min (90-120)
[2020-01-04 13:30] LABS: GLUCOSE 332 mg/dL (74-106)
[2020-01-04 13:52] LABS: ALBUMIN 2.8 g/dL (3.4-5.0); ALKALINE PHOSPHATASE 127 U/L (30-120); ALT (SGPT) 23 U/L (10-68); BILIRUBIN - TOTAL 0.51 mg/dL (0.2-1.3); CKMB 0.7 U/L (0.0-3.6); CREATINE KINASE 107 UL (21-215); MAGNESIUM - SERUM 1.2 mg/dL (1.8-2.4); PRO BNP 326 pg/mL (0-125); TROPONIN-I < 0.017 ng/mL (0.000-0.060)
[2020-01-04 14:59] LABS: APTT 28.9 SECONDS (22.8-39.4); INR 0.99 (0.85-1.17)
[2020-01-04 17:12] LABS: CKMB 0.7 U/L (0.0-3.6); CREATINE KINASE 121 UL (21-215)
[2020-01-04 17:19] LABS: TROPONIN-I < 0.017 ng/mL (0.000-0.060)
[2020-01-04 17:34] VITALS: BP 165/101
[2020-01-04 18:00] LABS: UDS - AMPHET NEGATIVE QUAL (NEGATIVE); UDS - BARB NEGATIVE QUAL (NEGATIVE); UDS - BENZO NEGATIVE QUAL (NEGATIVE); UDS - COCAINE POSITIVE QUAL (NEGATIVE); UDS - OPIATE NEGATIVE QUAL (NEGATIVE); UDS - PCP NEGATIVE QUAL (NEGATIVE); UDS - THC POSITIVE QUAL (NEGATIVE)
[2020-01-04 18:01] LABS: ERYTHROCYTE SEDIMENTATION RATE 13 mm/hr (0-20)
[2020-01-04 18:25] LABS: C-REACTIVE PROTEIN 3.4 mg/dL (0.0-0.9)
[2020-01-04 19:42] VITALS: BP 165/101
--- NOTE | 2020-01-04 20:24 | NUR ---
CONTACTED RT FOR NEB TREATMENT ODER FOR 1999
--- NOTE | 2020-01-04 20:29 | NUR ---
pt states pain level 6/10 on a verbal pain score
[2020-01-05 00:07] LABS: CKMB 0.7 U/L (0.0-3.6); CREATINE KINASE 118 UL (21-215); TROPONIN-I 0.022 ng/mL (0.000-0.060)
--- NOTE | 2020-01-05 03:37 | NUR ---
PT SITTING UP IN BED. CL IN REACH. DENIES NEEDS AT THIS TIME. BED IN LOW SIDE RAILS X1. RESP EVEN AND UNLABORED. A/O X4. WCTM
[2020-01-05 06:37] LABS: APTT 25.8 SECONDS (22.8-39.4); INR 1.04 (0.85-1.17); PROTIME 13.5 SECONDS (11.6-15.0)
[2020-01-05 06:42] LABS: ALBUMIN 2.8 g/dL (3.4-5.0); ALKALINE PHOSPHATASE 123 U/L (30-120); ALT (SGPT) 26 U/L (10-68); BILIRUBIN - TOTAL 0.28 mg/dL (0.2-1.3); CALCIUM 8.3 mg/dL (8.5-10.1); CARBON DIOXIDE 26.8 mmol/L (21.0-32.0); CHLORIDE - SERUM 105 mmol/L (98-107); CKMB 0.5 U/L (0.0-3.6); CREATINE KINASE 109 UL (21-215); CREATININE - SERUM 0.8 mg/dL (0.6-1.3); POTASSIUM - SERUM 3.6 mmol/L (3.5-5.1); PROTEIN - SERUM 6.4 g/dL (6.4-8.2); SODIUM 141 mmol/L (136-145); TROPONIN-I < 0.017 ng/mL (0.000-0.060); eGFR NON AFRICAN AMERICAN 84 mL/min (90-120)
[2020-01-05 06:43] LABS: CALC OSMOLALITY 279 mosm/kg (275-300); GLUCOSE 112 mg/dL (74-106); UREA NITROGEN 6 mg/dL (7-18)
[2020-01-05 07:13] LABS: BASOPHILS 0.2 % (0-2); EOSINOPHILS 1.7 % (0-7); HEMOGLOBIN 9.3 g/dL (12-16); IMMATURE GRANULOCYTES 0.2 % (0-5); LYMPHOCYTES 23.1 % (15-50); MCH 22.3 pg (26.0-34.0); MCV 74.3 fL (80.0-100.0); MONOCYTES 7.6 % (2-11); NEUTROPHILS 67.2 % (40-80); PLATELET COUNT 264 10x3/uL (130-400); RBC 4.17 10x6/uL (4.00-5.40); RDW 16.7 % (11.5-14.5); WBC 4.1 10x3/uL (4.8-10.8)
[2020-01-05 09:00] LABS: CHOL - HDL RATIO 2.4 ratio (2.3-4.1); LDL-HDL RATIO 1.3 ratio (1.5-3.5)
[2020-01-05 10:09] LABS: HCG URINE NEGATIVE (NEGATIVE)
--- NOTE | 2020-01-05 10:54 | NUR ---
PT RECEIVED VIA STRETCHER FROM RESTAURANT CREW PERSON FOR RECOVERY. WILL HOLD PATIENT HERE UNTIL AN INPATIENT BED IS AVAILABLE. SEE RESTAURANT CREW PERSON PROCEDURE AND RECOVERY FOR FURTHER NOTES
--- NOTE | 2020-01-05 10:56 | NUR ---
PT RECEIVED FROM COAL MINE INSPECTOR VIA STRETCHER FOR RECOVERY UNTIL AN INPATIENT BED IS AVAILABLE. PT SLEEPING BUT VERBALLY AROUSABLE, PT DENIES PAIN OR DISCOMFORT AT THIS TIME. IV PATENT INFUSING VIA R WRIST PER ORDERS. R GROIN SOFT, DRESSING CDI NO S/S HEMATOMA OR BLEEDING. LEG PINK AND WARM, PEDAL PULSES PALPALBE. PT INSTRUCTED TO KEEP HEAD ON PILLOW AND LEG STRAIGHT, SHE VERBALIZED UNDERSTANDING. PT PLACED ON CARDIAC MONITORS AND O2 VIA NC AT 2L. HR ST 99, BP 150/94, RR 24, SAT 98. PT WAS GIVEN LOPRESSOR IN COAL MINE INSPECTOR FOR BP, IT HAS LOWERED SINCE THAT TIME. CALL LIGHT IN REACH.
--- NOTE | 2020-01-05 11:15 | NUR ---
PT SLEEPING, VSS AT PRESENT. R GROIN SOFT, DRESSING REMAINS CDI NO S/S HEMATOMA OR BLEEDING. CALL LIGHT IN REACH. ECHO BEING DONE AT BS PER ORDERS.
--- NOTE | 2020-01-05 12:09 | NUR ---
PT SLEEPING COMFORTABLY. HR 96, BP 159/108, RR 21, SAT 98 ON 2L/NC. R GROIN SOFT, DRESSING CDI NO S/S HEMATOMA. CALL LIGHT IN REACH.
--- NOTE | 2020-01-05 12:35 | NUR ---
GROIN SOFT, DRESSING REMAINS CDI NO S/S HEMATOMA OR BLEEDING. VSS AT PRESENT. HOB ELEVATED SLIGHTLY. CALL LIGHT IN REACH, PT DENIES NEEDS AT THIS TIME.
--- NOTE | 2020-01-05 13:09 | NUR ---
GROIN REMAINS SOFT, NO S/S HEMATOMA OR BLEEDING. RECOVERY COMPLETE. PT RESTING W/O COMPLAINTS. WILL HOLD UNTIL BED ASSIGNED ON MED 2. CALL LIGHT IN REACH.
--- NOTE | 2020-01-05 14:00 | NUR ---
PT SLEEPING, HR STILL IN LOWER 100'S. IV PATENT INFUSING VIA PUMP. CALL LIGHT IN REACH. STILL WAITING TO GET A ROOM NUMBER ON THE FLOOR TO TRANSFER PT.
--- NOTE | 2020-01-05 15:10 | NUR ---
CLONIDINE 0.1 MG GIVEN PO ORDERED FOR BP. IV ANTIBIOTICS GIVEN PER ORDERS.
--- NOTE | 2020-01-05 16:09 | NUR ---
PT BEING TRANSFERED TO ROOM 2118 VIA STRETCHER
--- NOTE | 2020-01-05 16:37 | NUR ---
TRANSFERED FROM [facility] . [facility]. IV INFUSING. WILL CONT. PLAN OF CARE.
[2020-01-05 17:28] VITALS: BP 171/100; BMI 41.8
--- NOTE | 2020-01-05 19:25 | NUR ---
REPORT RECIEVED AND ROUNDING COMPLETE. PATIENT LAYIGN IN BED ON LEFT SIDE, LETHARGIC BUT WILL WAKE AND TALK BUT THEN DRIFTS BACK OFF TO SLEEP. RT IN ROOM TEACHING PATIENT ABOUT BREATHING AND EQUIPMENT. NO NEEDS VOICED AT THIS. NO DISTRESS NOTED. SPOUSE AT BEDSIDE. CALL LIGHT WIHTIN REACH AND BED IN LOWEST LOCKED POSITION.
[2020-01-05 20:21] VITALS: BP 146/86
[2020-01-06] VITALS: BP 123/76
--- NOTE | 2020-01-06 06:58 | NUR ---
PATIENT COMPLAINED THAT HER PIV IN RIGHT WRIST WAS PAINFUL, REMOVED CATH INTACT. PLACED NEW 22G PIV IN RIGHT HAND, STICK X2 PATIENT TOLERATED WELL.
[2020-01-06 07:11] LABS: ALBUMIN 2.6 g/dL (3.4-5.0); ALKALINE PHOSPHATASE 109 U/L (30-120); ALT (SGPT) 23 U/L (10-68); BILIRUBIN - TOTAL 0.67 mg/dL (0.2-1.3); CALC OSMOLALITY 272 mosm/kg (275-300); CALCIUM 8.4 mg/dL (8.5-10.1); CHLORIDE - SERUM 103 mmol/L (98-107); CREATININE - SERUM 0.8 mg/dL (0.6-1.3); GLUCOSE 99 mg/dL (74-106); POTASSIUM - SERUM 3.9 mmol/L (3.5-5.1); PROTEIN - SERUM 6.1 g/dL (6.4-8.2); SODIUM 138 mmol/L (136-145); UREA NITROGEN 5 mg/dL (7-18); eGFR NON AFRICAN AMERICAN 84 mL/min (90-120)
[2020-01-06 07:16] LABS: BASOPHILS 0.2 % (0-2); EOSINOPHILS 1.3 % (0-7); HEMATOCRIT 31.3 % (36.0-48.0); HEMOGLOBIN 9.3 g/dL (12-16); IMMATURE GRANULOCYTES 0.2 % (0-5); LYMPHOCYTES 17.5 % (15-50); MCH 22.4 pg (26.0-34.0); MCHC 29.7 g/dL (31.0-37.0); MCV 75.4 fL (80.0-100.0); MONOCYTES 8.5 % (2-11); NEUTROPHILS 72.3 % (40-80); PLATELET COUNT 179 10x3/uL (130-400); RBC 4.15 10x6/uL (4.00-5.40); RDW 16.8 % (11.5-14.5); WBC 4.7 10x3/uL (4.8-10.8)
--- NOTE | 2020-01-06 09:08 | OP ---
PATIENT NAME: ERYN CONTRERAS MEDICAL RECORD: [id number] :[birth year] LOCATION:D.M2 D.2118 ADMISSION DATE:01/04/20 SURGEON: JUANPABLO CALDERON MD DATE OF OPERATION: 01/05/2020 PROCEDURE: Left heart catheterization, selective coronary angiography, right femoral artery approach. CATHETERS: A 5-Faroese sheath, 5/4 left and right Ludy, 5/4 pig. The procedure was well tolerated. The patient returned to [place]. Sheath removed. ExoSeal device placed. FINDINGS: Left ventriculography in 30-degree YANG view: Normal wall motion, normal systolic function. CORONARY ANATOMY: LEFT MAIN: Left main is free of disease. LAD: Free of disease in the diagonal system. CIRCUMFLEX: Free of disease in the marginal system. RIGHT CORONARY ARTERY: Dominant artery, gives rise to PDA, free of disease. IMPRESSION: Normal LV systolic function, normal coronary anatomy. TRANSINT:[id number] Voice Confirmation ID: [id number] DOCUMENT ID: [id number] JUANPABLO CALDERON MD at 0908 CC: [id number] DICTATION DATE: 01/05/20 1041 MANAGER TECHNICAL SUPPORT: 01/05/20 1731 ADM IN [facility] [address] [id number]
--- NOTE | 2020-01-06 09:08 | EC ---
PATIENT:ERYN CONTRERAS DATE OF SERVICE: 01/04/20 SEX: F MEDICAL RECORD: [id number] DATE OF : [birth year] LOCATION:D.M2 D.211 AGE OF PATIENT: 39 ADMISSION DATE: 01/04/20 REFERRING PHYSICIAN: INTERPRETING PHYSICIAN: JUANPABLO CALDERON MD ECHOCARDIOGRAM REPORT ECHO CHARGES 4 ECHO COMPLETE Date: 01/05/20 CLINICAL DIAGNOSIS: CHF ECHOCARDIOGRAPHIC MEASUREMENTS (adult normal given) AC root (d.<3.7cm) 2.7 cm LV Septum d (<1.2 cm> 0.8 cm Valve Excursion 1.7 cm LV Septum (systole) 1.1 cm Left Atria (s.<4.0cm> 3.2 cm LVPW d(<1.2cm) 1.0 cm RV (d.<2.3cm) 2.9 cm LVPW (sytole) 1.1 cm LV diastole(<5.6CM) 3.9 cm MV E-F(>70mm/sec) cm LV systole 2.9 cm LVOT Diameter 1.7 cm MV exc.(>10mm) 1.2 cm Est.ejection fraction (50-75%) % DOPPLER: LVIT cm/sec A 118 cm/sec E 100 cm/sec LA cm/sec RVSP 41 mmHg LVOT 99 cm/sec AOP1/2T m/s Asc. Ao 140 cm/sec RVOT 79 cm/sec RA cm/sec PA 96 cm/sec AV Gradient Peak 7.8 mmHg AV Mean 4.8 mmHg AV Area 1.8 cm MV Gradient Peak 7.6 mmHg MV Mean 3.7 mmHg MV Area cm COMMENTS: Sdc Teacher: Josh COLLIER Security Agent: 3 Dr. Morales TAPE# PACS Pericardial Effusion N DATE OF SERVICE: 01/05/2020 Adequate 2D, color flow imaging, spectral Doppler, and M-Mode. No LVH. LV internal dimensions are normal. Wall motion normal. EF greater than or equal to 55%. Aortic valve is tricuspid. No evidence of stenosis by Doppler interrogation. Left atrium is normal. Mitral valve shows no prolapse. Trace MR. Right-sided chambers are grossly normal. Trace TR. TRANSINT:[id number] Voice Confirmation ID: [id number] DOCUMENT ID: [id number] ECHOCARDIOGRAM REPORT [id number] ERYN CONTRERAS JUANPABLO CALDERON MD at 0908 CC: [id number] DICTATION DATE: 01/05/201650 CIVIL PREPAREDNESS OFFICER: 01/06/20 0006 ADM IN [id number] [place] [address]
--- NOTE | 2020-01-06 09:08 | CN ---
PATIENT NAME:ERYN CONTRERAS MEDICAL RECORD: [id number] : 76 LOCATION:D. D.2118 ADMIT DATE: 01/04/20 ACCOUNT: [id number] CONSULTING PHYSICIAN: JUANPABLO CALDERON MD REFERRING PHYSICIAN: CITLALI BOGGS MD DATE OF CONSULTATION: 01/05/2020 HISTORY OF PRESENT ILLNESS: A 39-year-old female with history of hypertension, diabetes mellitus, dyslipidemia as well as sarcoidosis, been having intermittent chest tightness, pressure with exertion, has been ongoing. She actually had Cardiolite stress testing that showed no reversible ischemia; however, symptomatology continued with cardiac symptoms. We are asked to see her concerning cardiovascular status. PAST MEDICAL HISTORY: Includes; 1. History of hypertension. 2. Hyperlipidemia. 3. Diabetes mellitus. 4. Sarcoidosis. 5. Morbid obesity. ALLERGIES: TORADOL AND TRAMADOL. SOCIAL HISTORY: Nonsmoker, nondrinker. Easily able to take care of her ADLs for most part. No set exercise program. MEDICATIONS: Include albuterol 2 puffs every 6 hours p.r.n., Zanaflex 2 mg p.o. every 8 hours, clonidine 0.1 mg p.o. t.i.d., atorvastatin 40 every day, diltiazem 60 t.i.d., lisinopril 2.5 every day, hydralazine 100 mg every 6 hours p.r.n., [place] 5/325, Lasix 20 every day, insulin 20 units at bedtime sliding scale with lispro before meals and at bedtime. REVIEW OF SYSTEMS: The patient reports easy bruising but reports no swollen glands. The patient reports no fever, no night sweats, no significant weight gain, no significant weight loss. No significant exercise tolerance. The patient reports no dry eyes, no irritation, no vision change. Patient reports no difficulty hearing and no ear pain. Patient reports no frequent nose bleeds or nose and sinus problems. Patient reports on arm pain on exertion. No shortness of breath while lying down. No history of heart murmur. Patient reports no cough, no wheezing or coughing up blood. Patient reports no abdominal pain, no vomiting. Normal appetite. No diarrhea and not vomiting blood. No nausea and no constipation. Patient reports no incontinence. No difficulty urinating. No hematuria. No increased frequency. Patient reports no muscle aches. No weakness, no arthralgias, no back pain. No swelling of the extremities. Patient reports no abnormal mole, no jaundice, no rashes. Reports no loss of consciousness. No weakness and no numbness. No seizures, dizziness, or headaches. The patient reports no depression, no sleep disturbance, feeling safe in a relationship and no alcohol abuse. Patient reports on fatigue. Reports no runny nose or sinus pressure. No itching, no hives, and no frequent sneezing. PHYSICAL EXAMINATION: GENERAL: Pleasant, no acute distress, appears stated age. VITAL SIGNS: Blood pressure 165/101, pulse 120 and regular. HEENT: Normocephalic, atraumatic. CONSULT REPORT [id number] ERYN CONTRERAS NECK: No JVD or bruit. HEART: Regular, slight tachycardic. A II/ systolic ejection murmur. LUNGS: Fair air excursion. ABDOMEN: Soft, nontender. EXTREMITIES: Pulses 2+ with no edema. DIAGNOSTIC DATA: EKG with ST-T changes inferolaterally. IMPRESSION AND PLAN: Angina, continued symptomatology despite medical therapy and at this point in time we will plan for diagnostic angiography for definitive diagnosis. TRANSINT:[id number] Voice Confirmation ID: [id number] DOCUMENT ID: [id number] JUANPABLO CALDERON MD at 0908 CC: [id number] DICTATION DATE: 01/05/20 1020 NODE JS DEVELOPER: 01/05/20 1159 ADM IN [id number] [place] [address]
[2020-01-06 09:52] VITALS: BP 147/96
[2020-01-06] MEDS ORDERED: ZITHROMAX500 MG PO (11:26)
[2020-01-06] MEDS ORDERED: OMNICEF300 MG PO (11:26)
[2020-01-06 14:28] VITALS: BP 160/90
--- NOTE | 2020-01-06 14:33 | MORECARE ---
CASE MANAGEMENT DISCHARGE SUMMARY PATIENT: ERYN CONTRERAS UNIT: [id number] ADM DATE: 01/04/20 AGE: 39 : [birth year] SEX: F ROOM/BED: D.0015 AUTHOR: FATOUMATA RAMIREZ PHYSICIAN: REFERRING PHYSICIAN: CITLALI BOGGS MD DATE OF SERVICE: 01/06/20 Discharge Plan Patient Name: ERYN CONTRERAS Facility: [facility]:[place] : 1980 Planned Disposition: Home Anticipated Discharge Date: 01/06/20 Discharge Date: Expected LOS: 2 Initial Reviewer: [email or web address] Initial Review Date: 01/04/2020 Generated: 01/06/20 3:32 pm Patient Name: ERYN CONTRERAS Page [phone] at 1433 All edits/amendments must be made on the electronic document DICTATION DATE: 01/06/20 143 FELT CHECKER: CAROL[place] 01/06/20 143 RPT#: [id number] DC DATE: STATUS: ADM IN [facility] [address] [place] [address] END OF REPORT
[2020-01-06 14:36] VITALS: Ht 147.3 cm; Wt 90.7 kg
--- NOTE | 2020-01-06 14:40 | MORECARE ---
CASE MANAGEMENT DISCHARGE SUMMARY PATIENT: ERYN CONTRERAS UNIT: [id number] ADM DATE: 01/04/20 AGE: 39 : [birth year] SEX: F ROOM/BED: D.2118 AUTHOR: FATOUMATA RAMIREZ PHYSICIAN: REFERRING PHYSICIAN: CITLALI BOGGS MD DATE OF SERVICE: 01/06/20 Discharge Plan Patient Name: [facility] CONTR[facility]AS [facility] [facility] 1980 Planned Disposition: Home Health Service Anticipated Discharge Date: 01/06/20 Discharge Date: Expected LOS: 2 Initial Reviewer: [email or web address] Initial Review Date: 01/04/2020 Generated: 01/06/20 3:39 pm DCPIA - Discharge Planning Initial Assessment Updated by [email or web address]: Shira Vasquez on 01/06/20 2:39 pm * Is the patient Alert and Oriented? Yes * PCP Dr. Vora * Pharmacy [facility] next to [facility] * Preadmission Environment Home with Family * ADLs Independent * Equipment CPAP Nebulizer Oxygen * Other Equipment Portable O2 * List name and contact numbers for known caregivers / representatives who currently or will assist patient after discharge: Gissel Moise (fianc?) [phone] * Verbal permission to speak to the caregivers and representatives has been obtained from the patient. N/A * Community resources currently utilized None * Additional services required to return to the preadmission environment? Yes * Can the patient safely return to the preadmission environment? No * Has this patient been hospitalized within the prior 30 days at any hospital? Yes Last DP export: 01/06/20 1:33 p Patient Name: ERYN CONTRERAS Page [id number] at 1440 All edits/amendments must be made on the electronic document DICTATION DATE: 01/06/20 144 MARKETING EFFECTIVENESS MANAGER: CAROLINA 01/06/20 1440 RPT#: [id number] DC DATE: STATUS: ADM IN [facility] [address] [place] [address] END OF REPORT
--- NOTE | 2020-01-06 15:05 | NUR ---
RIGHT HAND IV D/C, TIP INTACT. DISCHARGE INSTRUCTIONS GIVEN VERBALLY AND HANDOUTS PROVIDED. AWAITING ARRIVAL TO BRING HOME OXYGEN.
--- NOTE | 2020-01-06 16:00 | NUR ---
TAKEN DOWN TO AT ED ENTRANCE VIA WHEELCHAIR. REMAINS FREE FROM INJURY
--- NOTE | 2020-01-07 15:40 | MORECARE ---
CASE MANAGEMENT DISCHARGE SUMMARY PATIENT: ERYN CONTRERAS UNIT: [id number] ADM DATE: 01/04/20 AGE: 39 : 76 SEX: F ROOM/BED: D.1535 AUTHOR: FATOUMATA RAMIREZ PHYSICIAN: REFERRING PHYSICIAN: CITLALI BOGGS MD DATE OF SERVICE: 01/07/20 Discharge Plan Patient Name: ERYN CONTRERAS Facility: [facility]:[place] : 1980 Planned Disposition: Home Anticipated Discharge Date: 01/06/20 Discharge Date: 01/06/2020 Expected LOS: 2 Initial Reviewer: [email or web address] Initial Review Date: 01/04/2020 Generated: 01/07/20 4:40 pm Comments DCP- Discharge Planning Updated by [email or web address]: Shira Vasquez on 01/07/20 2:[address] Late Entry: CM met with patient for DC planning. Patient is in agreement to same. PCP: Dr. Vora. Pharmacy: [facility] ([email or web address]). DME: O2, with portability, Nebulizer, C-PAP. Emergency contact: Gissel Jose Maria (fianc?) [phone]. Patient lives independently with her fianc?. CM discussed HHS, Rehab, SNF, but patient declines these services. Patient's fianc? will drive her home upon DC. DCPIA - Discharge Planning Initial Assessment Updated by [email or web address]: Shira Vasquez on 01/07/20 3:35 pm * Is the patient Alert and Oriented? Yes * PCP Dr. Vora * [facility] to [facility] * Preadmission Environment Home with Family * ADLs Independent * Equipment CPAP Nebulizer Oxygen * Other Equipment Portable O2 * List name and contact numbers for known caregivers / representatives who currently or will assist patient after discharge: Gissel Moise (fianc?) [phone] * Verbal permission to speak to the caregivers and representatives has been obtained from the patient. N/A * Community resources currently utilized None * Additional services required to return to the preadmission environment? No * Can the patient safely return to the preadmission environment? No * Has this patient been hospitalized within the prior 30 days at any hospital? Yes Last DP export: 01/06/20 1:40 p Patient Name: ERYN CONTRERAS Page [id number] at 1540 All edits/amendments must be made on the electronic document DICTATION DATE: 01/07/20 1540 COMPLIANCE AUDITOR: CAROLINA 01/07/20 1540 RPT#: [id number] DC DATE:01/06/20 STATUS: DIS IN [facility] [address] [place] [address] END OF REPORT
--- NOTE | 2020-01-09 09:28 | MORECARE ---
CASE MANAGEMENT DISCHARGE SUMMARY PATIENT: ERYN CONTRERAS UNIT: [id number] ADM DATE: 01/04/20 AGE: 39 : 76 SEX: F ROOM/BED: D.2727 AUTHOR: FATOUMATA RAMIREZ PHYSICIAN: REFERRING PHYSICIAN: CITLALI BOGGS MD DATE OF SERVICE: 01/09/20 Discharge Plan Patient Name: ERYN CONTRERAS Facility: [facility]:[place] : 1980 Planned Disposition: Home Anticipated Discharge Date: 01/06/20 Discharge Date: 01/06/2020 Expected LOS: 2 Initial Reviewer: [email or web address] Initial Review Date: 01/04/2020 Generated: 01/09/20 10:27 am Comments DCP- Discharge Planning Updated by [email or web address]: Shira Vasquez on 01/07/20 2:[address] Late Entry: CM met with patient for DC planning. Patient is in agreement to same. PCP: Dr. Vora. Pharmacy: [facility] ([email or web address] DME: O2, with portability, Nebulizer, C-PAP. Emergency contact: Gissel Jose Maria (fianc?) [phone]. Patient lives independently with her fianc?. CM discussed HHS, Rehab, SNF, but patient declines these services. Patient's fianc? will drive her home upon DC. DCPIA - Discharge Planning Initial Assessment Updated by [email or web address]: Shira Vasquez on 01/07/20 3:35 pm * Is the patient Alert and Oriented? Yes * PCP Dr. Vora * [facility]acy [facility] to [facility] * Preadmission Environment Home with Family * ADLs Independent * Equipment CPAP Nebulizer Oxygen * Other Equipment Portable O2 * List name and contact numbers for known caregivers / representatives who currently or will assist patient after discharge: Gissel Moise (fianc?) [phone] * Verbal permission to speak to the caregivers and representatives has been obtained from the patient. N/A * Community resources currently utilized None * Additional services required to return to the preadmission environment? No * Can the patient safely return to the preadmission environment? No * Has this patient been hospitalized within the prior 30 days at any hospital? Yes Last DP export: 01/07/20 2:40 p Patient Name: ERYN CONTRERAS Page [id number] at 0928 All edits/amendments must be made on the electronic document DICTATION DATE: 01/09/20926 TOOL CLERK: CAROLINA 01/09/20926 RPT#: [id number] DC DATE:01/06/20 STATUS: DIS IN [facility] [address] [place] [address] END OF REPORT
[2020-01-09 10:08] LABS: ANA REFLEX - DIRECT Negative (Negative)
[2020-01-09 13:09] LABS: ANGIOTENSIN CONVERTING ENZYME 46 U/L (14-82)
== END 2020-01-06 16:01 | disposition home or self-care (01) | DRG 194 ==
LOC: D.ER 11:50 → D.M2 16:31 → D.EDHOLD 16:31 → D.M2 01-05 16:10
PROVIDERS: Family Medicine; Internal Medicine Hematology & Oncology; Internal Medicine Interventional Cardiology; Internal Medicine Pulmonary Disease; ADMIT Family Medicine Adult Medicine; ATTEND Family Medicine Adult Medicine
PROC: B2151ZZ Fluoroscopy of Left Heart using Low Osmolar Contrast (ICD-10-PCS; 2020-01-05)
PROC: 4A023N7 Measurement of Cardiac Sampling and Pressure, Left Heart, Percutaneous Approach (ICD-10-PCS; 2020-01-05)
PROC: B2111ZZ Fluoroscopy of Multiple Coronary Arteries using Low Osmolar Contrast (ICD-10-PCS; principal; 2020-01-05 09:38)
DX: J18.9 Pneumonia, unspecified organism (principal); I50.20 Unspecified systolic (congestive) heart failure; R00.0 Tachycardia, unspecified; E11.65 Type 2 diabetes mellitus with hyperglycemia; I11.0 Hypertensive heart disease with heart failure; K21.9 Gastro-esophageal reflux disease without esophagitis; D57.3 Sickle-cell trait; D50.9 Iron deficiency anemia, unspecified; D86.9 Sarcoidosis, unspecified; F14.10 Cocaine abuse, uncomplicated; F12.10 Cannabis abuse, uncomplicated; Z86.73 Personal history of transient ischemic attack (TIA), and cerebral infarction without residual deficits

== ENCOUNTER 2020-06-03 14:59 | Emergency (ER) | payer OTHER ==
[~2020-06-03] VITALS: Ht 147.3 cm; Wt 81.8 kg
[~2020-06-03 14:59] MED LIST changes: +BACTRIM DS TAB1 EAC1 PO; +COZAAR50 MG PO; +DULERA 200 MCG8.8 GM INH; +FLAGYL500 MG PO; +FLORAJEN3 CAPS460 MG PO; +HYDRALAZINE HCL50 MG PO; +KEFLEX500 MG PO; +LEVOFLOXACIN500 MG PO; +MACROBID100 MG PO; +MELATONIN 3 MG1 TAB PO; +MUCINEX DM ER1 EAC1 PO; +NYAMYC60 GM TP; +OMEPRAZOLE40 MG PO; +PERFOROMIS20 MCG/21 INH; +PROMETHAZINE W473 ML PO; +PULMICORT0.5 MG/21 UPD; +REGLAN10 MG PO; +SINGULAIR10 MG PO; +TESSALON PERLE100 MG PO; +ZPAK PO
[2020-06-03 15:03] VITALS: Ht 147.3 cm; Wt 81.8 kg
[2020-06-03 15:30] LABS: BASOPHILS 0 % (0-2); HEMATOCRIT 29.6 % (36.0-48.0); HEMOGLOBIN 8.9 g/dL (12-16); IMMATURE GRANULOCYTES 0.5 % (0-5); LYMPHOCYTES 13.1 % (15-50); MCH 21.9 pg (26.0-34.0); MCHC 30.1 g/dL (31.0-37.0); MCV 72.9 fL (80.0-100.0); MONOCYTES 9.1 % (2-11); NEUTROPHIL ABS# 4.68 10x3/uL (1.56-6.13); NEUTROPHILS 76.3 % (40-80); PLATELET COUNT 260 10x3/uL (130-400); RBC 4.06 10x6/uL (4.00-5.40); RDW 20.1 % (11.5-14.5); WBC 6.1 10x3/uL (4.8-10.8)
[2020-06-03 15:39] LABS: APTT 25.1 SECONDS (22.8-39.4); INR 1.03 (0.85-1.17); PROTIME 12.4 SECONDS (11.6-15.0)
[2020-06-03 15:40] LABS: CALC OSMOLALITY 270 mosm/kg (275-300); CALCIUM 8.5 mg/dL (8.5-10.1); CARBON DIOXIDE 37.1 mmol/L (21.0-32.0); CHLORIDE - SERUM 102 mmol/L (98-107); CREATININE - SERUM 0.9 mg/dL (0.6-1.3); POTASSIUM - SERUM 3.5 mmol/L (3.5-5.1); SODIUM 137 mmol/L (136-145); UREA NITROGEN 8 mg/dL (7-18); eGFR NON AFRICAN AMERICAN 73 mL/min (90-120)
[2020-06-03 15:50] LABS: GLUCOSE 86 mg/dL (74-106)
[2020-06-03 15:55] LABS: ALBUMIN 2.8 g/dL (3.4-5.0); ALKALINE PHOSPHATASE 113 U/L (30-120); ALT (SGPT) 28 U/L (10-68); BILIRUBIN - TOTAL 0.36 mg/dL (0.2-1.3); CREATINE KINASE 38 UL (21-215); MAGNESIUM - SERUM 1.4 mg/dL (1.8-2.4); PROTEIN - SERUM 6.7 g/dL (6.4-8.2); TROPONIN-I < 0.017 ng/mL (0.000-0.060)
[2020-06-03 19:02] VITALS: BP 136/72
== END 2020-06-03 19:02 | disposition home or self-care (01) ==
LOC: D.ER 14:59
PROVIDERS: Family Medicine
DX: R07.9 Chest pain, unspecified (principal); R10.13 Epigastric pain; K21.9 Gastro-esophageal reflux disease without esophagitis; Z76.5 Malingerer [conscious simulation]; E11.9 Type 2 diabetes mellitus without complications; I10 Essential (primary) hypertension; J45.909 Unspecified asthma, uncomplicated

== ENCOUNTER 2020-06-11 00:16 | Inpatient (IN) | payer OTHER ==
[2020-06-11] VITALS (9 sets, daily range): BP systolic 143–198; BP diastolic 79–114; Ht 147.3 cm; Wt 81.8 kg
[~2020-06-11] VITALS: Ht 147.3 cm; Wt 81.8 kg
[2020-06-11 00:58] LABS: BASOPHILS 0 % (0-2); EOSINOPHILS 0 % (0-7); HEMATOCRIT 28.9 % (36.0-48.0); HEMOGLOBIN 8.9 g/dL (12-16); IMMATURE GRANULOCYTES 0.2 % (0-5); LYMPHOCYTE ABS# 0.42 10x3/uL (1.18-3.74); LYMPHOCYTES 6.7 % (15-50); MCHC 30.8 g/dL (31.0-37.0); MCV 71.5 fL (80.0-100.0); MONOCYTES 0.2 % (2-11); NEUTROPHIL ABS# 5.85 10x3/uL (1.56-6.13); NEUTROPHILS 92.9 % (40-80); PLATELET COUNT 223 10x3/uL (130-400); RBC 4.04 10x6/uL (4.00-5.40); RDW 19.9 % (11.5-14.5); WBC 6.3 10x3/uL (4.8-10.8)
[2020-06-11 01:03] LABS: APTT 25.6 SECONDS (22.8-39.4); INR 1.09 (0.85-1.17); PROTIME 13.1 SECONDS (11.6-15.0)
[2020-06-11 01:05] LABS: CARBON DIOXIDE 26.3 mmol/L (21.0-32.0); CHLORIDE - SERUM 93 mmol/L (98-107); CREATININE - SERUM 1.5 mg/dL (0.6-1.3); POTASSIUM - SERUM 4.3 mmol/L (3.5-5.1); SODIUM 130 mmol/L (136-145); UREA NITROGEN 18 mg/dL (7-18); eGFR NON AFRICAN AMERICAN 40 mL/min (90-120)
[2020-06-11 01:07] LABS: CALC OSMOLALITY 299 mosm/kg (275-300); GLUCOSE 767 mg/dL (74-106)
[2020-06-11 01:21] LABS: ALBUMIN 3.3 g/dL (3.4-5.0); ALKALINE PHOSPHATASE 189 U/L (30-120); ALT (SGPT) 23 U/L (10-68); BILIRUBIN - TOTAL 0.32 mg/dL (0.2-1.3); CKMB 0.2 U/L (0.0-3.6); CREATINE KINASE 49 UL (21-215); MAGNESIUM - SERUM 1.9 mg/dL (1.8-2.4); PROTEIN - SERUM 7.4 g/dL (6.4-8.2); TROPONIN-I < 0.017 ng/mL (0.000-0.060)
[2020-06-11 02:26] LABS: BILIRUBIN NEGATIVE (NEGATIVE); KETONE NEGATIVE (NEGATIVE); NITRITE NEGATIVE (NEGATIVE); UROBILINOGEN NORMAL mg/dL (< 2)
--- NOTE | 2020-06-11 03:55 | NUR ---
FSBS 494
[2020-06-11 05:18] LABS: % SATURATION 15 % (15-55); IRON 41 ug/dl (35-150); TOTAL IRON BIND CAPACITY 266 ug/dl (260-445); UNSAT IRON BIND CAPACITY 225 ug/dl (150-375)
--- NOTE | 2020-06-11 05:34 | NUR ---
FSBS 310
--- NOTE | 2020-06-11 08:56 | NUR ---
RECEIVED REPORT FROM CIRO IN THE ED.
--- NOTE | 2020-06-11 09:41 | NUR ---
RECEIVED TO ROOM VIA WHEELCHAIR. SALINE LOCK SEEN TO LEFT FINGER, FUSHES WELL, ORANGE CAP PLACED. GLASSES ON.
--- NOTE | 2020-06-11 15:00 | NUR ---
PATIENT'S BOYFRIEND TO CALL AND ASK IF PATIENT WAS GOING HOME TODAY. I ASKED THE PATIETN PERMISSION TO TALK TO HIM AND SHE SAID "YES". I TOLD HIM THAT DR RANGEL WAS NOT DISCHARGING HER TODAY UNTIL WE COULD GET HER BLOOD SUGAR UNDER CONTROL. HE THANKED ME.
--- NOTE | 2020-06-11 16:26 | NUR ---
ALERT AND ORIENTED X4. SITTING UP IN BED. REQUESTING MORE PAIN MEDICATION. CALL [facility]. FLORENCIA DENIES REQUEST. DENIES ANY OTHER NEEDS. NO SIGNS OF DISTRESS. CONTINUE PLAN OF CARE AND SAFETY PRECAUTIONS.
--- NOTE | 2020-06-11 18:06 | NUR ---
ALERT AND ORIENTED X4. SITTING UP IN BED. REQUESTING AMA PAPER. EXPLAIN LEAVING AMA INSURANCE WILL NOT PAY. PATIENT STATES, "I DON'T CARE, [facility] CAN JUST BILL ME. I HAVE A DENTIST APPOINTMENT TO GET TO." NOTIFY RADHA GRIMES. AMA PAPER SIGNED ON CHART. DC LT HAND IV TIP INTACT. AMBULATES WITH SPOUSE TO RIDE.
== END 2020-06-11 18:10 | disposition left against medical advice (07) | DRG 638 ==
LOC: D.ER 00:16 → D.EDHOLD 04:26 → D.M2 04:26
PROVIDERS: Emergency Medicine; ADMIT Emergency Medicine; ATTEND Emergency Medicine
DX: E11.65 Type 2 diabetes mellitus with hyperglycemia (principal); N17.9 Acute kidney failure, unspecified; D86.9 Sarcoidosis, unspecified; J45.909 Unspecified asthma, uncomplicated; M32.9 Systemic lupus erythematosus, unspecified; E78.5 Hyperlipidemia, unspecified; I08.1 Rheumatic disorders of both mitral and tricuspid valves; I27.20 Pulmonary hypertension, unspecified; I16.0 Hypertensive urgency; Z86.73 Personal history of transient ischemic attack (TIA), and cerebral infarction without residual deficits

== ENCOUNTER 2020-07-20 17:02 | Emergency (ER) | payer OTHER ==
[~2020-07-20] VITALS: Ht 147.3 cm; Wt 81.8 kg
[2020-07-20 17:06] VITALS: BP 161/105; Ht 147.3 cm; Wt 81.8 kg
[2020-07-20 17:33] LABS: BASOPHILS 0.2 % (0-2); EOSINOPHILS 0.7 % (0-7); HEMATOCRIT 32.3 % (36.0-48.0); HEMOGLOBIN 9.5 g/dL (12-16); IMMATURE GRANULOCYTES 0.2 % (0-5); LYMPHOCYTE ABS# 0.68 10x3/uL (1.18-3.74); LYMPHOCYTES 12.7 % (15-50); MCH 22.6 pg (26.0-34.0); MCHC 29.4 g/dL (31.0-37.0); MCV 76.9 fL (80.0-100.0); MONOCYTES 7.9 % (2-11); NEUTROPHIL ABS# 4.19 10x3/uL (1.56-6.13); NEUTROPHILS 78.3 % (40-80); PLATELET COUNT 311 10x3/uL (130-400); WBC 5.4 10x3/uL (4.8-10.8)
[2020-07-20 17:43] LABS: SARS-CoV-2 ANTIGEN NEGATIVE- SARS-COV-2 (NEGATIVE)
[2020-07-20 17:43] LABS: ANION GAP 8.4 mmol/L (8-16); CALCIUM 7.8 mg/dL (8.5-10.1); CARBON DIOXIDE 33.9 mmol/L (21.0-32.0); CREATININE - SERUM 1.1 mg/dL (0.6-1.3); POTASSIUM - SERUM 4.3 mmol/L (3.5-5.1)
[2020-07-20 17:50] LABS: ALBUMIN 2.8 g/dL (3.4-5.0); BILIRUBIN - TOTAL 0.58 mg/dL (0.2-1.3); PROTEIN - SERUM 6.7 g/dL (6.4-8.2)
[2020-07-20 19:08] LABS: INFLUENZA TYPE A NEGATIVE (NEGATIVE); INFLUENZA TYPE B NEGATIVE (NEGATIVE)
== END 2020-07-20 19:18 | disposition home or self-care (01) ==
LOC: D.ER 17:02
PROVIDERS: Family Medicine
DX: R05 Cough (principal); R09.81 Nasal congestion; E11.9 Type 2 diabetes mellitus without complications; Z86.73 Personal history of transient ischemic attack (TIA), and cerebral infarction without residual deficits; I10 Essential (primary) hypertension; J45.909 Unspecified asthma, uncomplicated; K21.9 Gastro-esophageal reflux disease without esophagitis; Z79.4 Long term (current) use of insulin

== ENCOUNTER 2020-08-05 15:23 | Emergency (ER) | payer OTHER ==
[~2020-08-05] VITALS: Ht 147.3 cm; Wt 81.8 kg
[2020-08-05 15:38] VITALS: Ht 147.3 cm; Wt 81.8 kg
[2020-08-05 16:20] LABS: BASOPHILS 0 % (0-2); EOSINOPHILS 0.4 % (0-7); HEMATOCRIT 31.1 % (36.0-48.0); HEMOGLOBIN 9.3 g/dL (12-16); IMMATURE GRANULOCYTES 0.3 % (0-5); LYMPHOCYTE ABS# 0.71 10x3/uL (1.18-3.74); LYMPHOCYTES 10.2 % (15-50); MCH 22.4 pg (26.0-34.0); MCHC 29.9 g/dL (31.0-37.0); MCV 74.9 fL (80.0-100.0); MONOCYTES 4.5 % (2-11); NEUTROPHIL ABS# 5.89 10x3/uL (1.56-6.13); NEUTROPHILS 84.6 % (40-80); PLATELET COUNT 213 10x3/uL (130-400); RBC 4.15 10x6/uL (4.00-5.40); RDW 19.7 % (11.5-14.5)
[2020-08-05 16:33] LABS: APTT 23.9 SECONDS (22.8-39.4); INR 1.09 (0.85-1.17); PROTIME 13.1 SECONDS (11.6-15.0)
[2020-08-05 16:47] LABS: ALKALINE PHOSPHATASE 122 U/L (30-120); ALT (SGPT) 19 U/L (10-68); BILIRUBIN - TOTAL 0.56 mg/dL (0.2-1.3); CALCIUM 8.5 mg/dL (8.5-10.1); CARBON DIOXIDE 33.3 mmol/L (21.0-32.0); CHLORIDE - SERUM 98 mmol/L (98-107); CKMB 0.8 U/L (0.0-3.6); CREATINE KINASE 59 UL (21-215); CREATININE - SERUM 0.9 mg/dL (0.6-1.3); MAGNESIUM - SERUM 1.4 mg/dL (1.8-2.4); POTASSIUM - SERUM 3.4 mmol/L (3.5-5.1); PROTEIN - SERUM 6.7 g/dL (6.4-8.2); SODIUM 137 mmol/L (136-145); UREA NITROGEN 8 mg/dL (7-18); eGFR NON AFRICAN AMERICAN 73 mL/min (90-120)
[2020-08-05 16:49] LABS: CALC OSMOLALITY 290 mosm/kg (275-300); TROPONIN-I < 0.017 ng/mL (0.000-0.060)
[2020-08-05 16:50] LABS: GLUCOSE 440 mg/dL (74-106)
[2020-08-05 16:59] LABS: BILIRUBIN NEGATIVE (NEGATIVE); KETONE NEGATIVE (NEGATIVE); NITRITE NEGATIVE (NEGATIVE); UROBILINOGEN NORMAL mg/dL (< 2)
[2020-08-05 17:11] LABS: UDS - AMPHET NEGATIVE QUAL (NEGATIVE); UDS - BARB NEGATIVE QUAL (NEGATIVE); UDS - BENZO NEGATIVE QUAL (NEGATIVE); UDS - COCAINE POSITIVE QUAL (NEGATIVE); UDS - OPIATE NEGATIVE QUAL (NEGATIVE); UDS - PCP NEGATIVE QUAL (NEGATIVE); UDS - THC POSITIVE QUAL (NEGATIVE)
[2020-08-05] MEDS ORDERED: PHENERGAN25 M1 PO (18:06)
[2020-08-05 21:54] VITALS: BP 168/91
== END 2020-08-05 21:54 | disposition home or self-care (01) ==
LOC: D.ER 15:23
PROVIDERS: Family Medicine
DX: A08.4 Viral intestinal infection, unspecified (principal); F14.10 Cocaine abuse, uncomplicated; E11.65 Type 2 diabetes mellitus with hyperglycemia; Z91.19 Patient's noncompliance with other medical treatment and regimen; Z86.73 Personal history of transient ischemic attack (TIA), and cerebral infarction without residual deficits; K21.9 Gastro-esophageal reflux disease without esophagitis; Z79.4 Long term (current) use of insulin

== ENCOUNTER 2020-09-04 15:32 | Emergency (ER) | payer OTHER ==
[~2020-09-04] VITALS: Ht 147.3 cm; Wt 81.8 kg
[~2020-09-04 15:32] MED LIST changes: +PHENERGAN25 M1 PO
[2020-09-04 15:40] VITALS: BP 165/104; Ht 147.3 cm; Wt 81.8 kg
[2020-09-04 16:34] LABS: BASOPHILS 1.3 % (0-2); EOSINOPHILS 0.9 % (0-7); HEMATOCRIT 27.9 % (36.0-48.0); HEMOGLOBIN 8.3 g/dL (12-16); LYMPHOCYTES 14.2 % (15-50); MCH 21.4 pg (26.0-34.0); MCHC 29.7 g/dL (31.0-37.0); MCV 71.8 fL (80.0-100.0); MEAN PLATELET VOLUME 9.4 fL (7.4-10.4); MONOCYTES 9.3 % (2-11); NEUTROPHILS 74.3 % (40-80); PLATELET COUNT 245 10x3/uL (130-400); RBC 3.88 10x6/uL (4.00-5.40); RDW 22.6 % (11.5-14.5); WBC 5.7 10x3/uL (4.8-10.8)
[2020-09-04 16:51] LABS: CALCIUM 8.4 mg/dL (8.5-10.1); CARBON DIOXIDE 32.3 mmol/L (21.0-32.0); CHLORIDE - SERUM 105 mmol/L (98-107); CREATININE - SERUM 0.9 mg/dL (0.6-1.3); POTASSIUM - SERUM 3.5 mmol/L (3.5-5.1); SODIUM 143 mmol/L (136-145); UREA NITROGEN 9 mg/dL (7-18); eGFR NON AFRICAN AMERICAN 73 mL/min (90-120)
[2020-09-04 17:04] LABS: ALKALINE PHOSPHATASE 97 U/L (30-120); ALT (SGPT) 14 U/L (10-68); BILIRUBIN - TOTAL 0.46 mg/dL (0.2-1.3); PRO BNP 299 pg/mL (0-125); PROTEIN - SERUM 6.8 g/dL (6.4-8.2)
[2020-09-04 17:09] LABS: CALC OSMOLALITY 288 mosm/kg (275-300); GLUCOSE 195 mg/dL (74-106); TROPONIN-I < 0.017 ng/mL (0.000-0.060)
== END 2020-09-04 18:32 | disposition home or self-care (01) ==
LOC: D.ER 15:32
PROVIDERS: Student in an Organized Health Care Education/Training Program
DX: R22.43 Localized swelling, mass and lump, lower limb, bilateral (principal); D64.9 Anemia, unspecified; R05 Cough; Z86.73 Personal history of transient ischemic attack (TIA), and cerebral infarction without residual deficits; E11.9 Type 2 diabetes mellitus without complications; I10 Essential (primary) hypertension; J45.909 Unspecified asthma, uncomplicated; K21.9 Gastro-esophageal reflux disease without esophagitis; Z79.4 Long term (current) use of insulin

== ENCOUNTER 2020-09-18 22:25 | Emergency (ER) | payer OTHER ==
[~2020-09-18] VITALS: Ht 147.3 cm; Wt 82.3 kg
[2020-09-18 22:36] VITALS: BP 177/109; Ht 147.3 cm; Wt 82.3 kg
[2020-09-18 23:36] LABS: BASOPHILS 0.4 % (0-2); EOSINOPHILS 0.3 % (0-7); HEMATOCRIT 29.8 % (36.0-48.0); HEMOGLOBIN 8.9 g/dL (12-16); LYMPHOCYTES 4.6 % (15-50); MCH 21.5 pg (26.0-34.0); MCHC 29.9 g/dL (31.0-37.0); MEAN PLATELET VOLUME 8.9 fL (7.4-10.4); MONOCYTES 1.3 % (2-11); NEUTROPHILS 93.4 % (40-80); RBC 4.15 10x6/uL (4.00-5.40); WBC 7.1 10x3/uL (4.8-10.8)
[2020-09-18 23:38] LABS: PLATELET COUNT 340 10x3/uL (130-400)
[2020-09-18 23:39] LABS: APTT 31.7 SECONDS (22.8-39.4); INR 1.09 (0.85-1.17); PROTIME 13.1 SECONDS (11.6-15.0)
[2020-09-18 23:49] LABS: CALC OSMOLALITY 283 mosm/kg (275-300); CALCIUM 8.5 mg/dL (8.5-10.1); CARBON DIOXIDE 28.4 mmol/L (21.0-32.0); CHLORIDE - SERUM 100 mmol/L (98-107); CREATININE - SERUM 1.1 mg/dL (0.6-1.3); POTASSIUM - SERUM 4.2 mmol/L (3.5-5.1); SODIUM 137 mmol/L (136-145); UREA NITROGEN 9 mg/dL (7-18); eGFR NON AFRICAN AMERICAN 58 mL/min (90-120)
[2020-09-18 23:54] LABS: GLUCOSE 301 mg/dL (74-106)
[2020-09-19 00:17] LABS: ALBUMIN 3.4 g/dL (3.4-5.0); ALKALINE PHOSPHATASE 96 U/L (30-120); ALT (SGPT) 17 U/L (10-68); BILIRUBIN - TOTAL 0.75 mg/dL (0.2-1.3); CKMB 0.8 U/L (0.0-3.6); CREATINE KINASE 82 UL (21-215); MAGNESIUM - SERUM 1.2 mg/dL (1.8-2.4); PROTEIN - SERUM 7.9 g/dL (6.4-8.2); TROPONIN-I < 0.017 ng/mL (0.000-0.060)
[2020-09-19] MEDS ORDERED: PHENERGAN25 M1 PO (01:03)
[2020-09-19] MEDS ORDERED: DOXYCYCLINE HY100 M2 PO (01:03)
[2020-09-20] MEDS ORDERED: PHENERGAN50 MG RC (13:20)
== END 2020-09-19 01:12 | disposition home or self-care (01) ==
LOC: D.ER 22:25
PROVIDERS: Family Medicine
DX: J18.9 Pneumonia, unspecified organism (principal); E11.9 Type 2 diabetes mellitus without complications; Z86.73 Personal history of transient ischemic attack (TIA), and cerebral infarction without residual deficits; I10 Essential (primary) hypertension; J45.909 Unspecified asthma, uncomplicated; K21.9 Gastro-esophageal reflux disease without esophagitis

== ENCOUNTER 2020-09-20 10:59 | Emergency (ER) | payer OTHER ==
[~2020-09-20] VITALS: Ht 147.3 cm; Wt 79.1 kg
[2020-09-20 11:08] VITALS: Ht 147.3 cm; Wt 79.1 kg
[2020-09-20 11:32] LABS: BASOPHILS 0.8 % (0-2); EOSINOPHILS 0.8 % (0-7); HEMATOCRIT 25.3 % (36.0-48.0); HEMOGLOBIN 7.6 g/dL (12-16); MCH 21.7 pg (26.0-34.0); MCHC 30.1 g/dL (31.0-37.0); MCV 71.9 fL (80.0-100.0); MEAN PLATELET VOLUME 7.5 fL (7.4-10.4); MONOCYTES 7.2 % (2-11); NEUTROPHILS 79.2 % (40-80); PLATELET COUNT 299 10x3/uL (130-400); RBC 3.52 10x6/uL (4.00-5.40); RDW 23.7 % (11.5-14.5); WBC 6.7 10x3/uL (4.8-10.8)
[2020-09-20 12:23] LABS: ANION GAP 14.1 mmol/L (8-16); CALCIUM 8.2 mg/dL (8.5-10.1); CARBON DIOXIDE 27.5 mmol/L (21.0-32.0); CREATININE - SERUM 1.1 mg/dL (0.6-1.3); POTASSIUM - SERUM 3.6 mmol/L (3.5-5.1)
[2020-09-20 12:31] LABS: ALBUMIN 3.3 g/dL (3.4-5.0); BILIRUBIN - TOTAL 0.42 mg/dL (0.2-1.3); PROTEIN - SERUM 7.4 g/dL (6.4-8.2); TROPONIN-I 0.051 ng/mL (0.000-0.060)
[2020-09-20] MEDS ORDERED: PHENERGAN50 MG RC (13:20)
[2020-09-20 13:33] VITALS: BP 156/91
== END 2020-09-20 13:34 | disposition home or self-care (01) ==
LOC: D.ER 10:59
PROVIDERS: Family Medicine
DX: R05 Cough (principal); J06.9 Acute upper respiratory infection, unspecified; R11.0 Nausea; E11.9 Type 2 diabetes mellitus without complications; I10 Essential (primary) hypertension; J45.909 Unspecified asthma, uncomplicated

== ENCOUNTER 2020-09-26 13:09 | Emergency (ER) | payer OTHER ==
[~2020-09-26] VITALS: Ht 147.3 cm; Wt 77.7 kg
[~2020-09-26 13:09] MED LIST changes: +PHENERGAN50 MG RC
[2020-09-26 13:25] VITALS: BP 188/111; Ht 147.3 cm; Wt 77.7 kg
[2020-09-26 14:45] LABS: BASOPHILS 0.7 % (0-2); EOSINOPHILS 0.7 % (0-7); HEMATOCRIT 31.6 % (36.0-48.0); HEMOGLOBIN 9.8 g/dL (12-16); LYMPHOCYTES 14.1 % (15-50); MCH 22.6 pg (26.0-34.0); MCV 73.1 fL (80.0-100.0); MEAN PLATELET VOLUME 9.5 fL (7.4-10.4); MONOCYTES 5.5 % (2-11); PLATELET COUNT 282 10x3/uL (130-400); RBC 4.32 10x6/uL (4.00-5.40); RDW 22.5 % (11.5-14.5)
[2020-09-26 14:57] LABS: CALC OSMOLALITY 296 mosm/kg (275-300); CALCIUM 8.7 mg/dL (8.5-10.1); CARBON DIOXIDE 34.2 mmol/L (21.0-32.0); CHLORIDE - SERUM 100 mmol/L (98-107); POTASSIUM - SERUM 3.1 mmol/L (3.5-5.1); SODIUM 142 mmol/L (136-145); UREA NITROGEN 11 mg/dL (7-18); eGFR NON AFRICAN AMERICAN 65 mL/min (90-120)
[2020-09-26 15:01] LABS: GLUCOSE 365 mg/dL (74-106)
[2020-09-26 15:14] LABS: ALBUMIN 3.3 g/dL (3.4-5.0); ALKALINE PHOSPHATASE 96 U/L (30-120); ALT (SGPT) 17 U/L (10-68); BILIRUBIN - TOTAL 0.73 mg/dL (0.2-1.3); CKMB 1.2 U/L (0.0-3.6); CREATINE KINASE 52 UL (21-215); PRO BNP 1035 pg/mL (0-125); PROTEIN - SERUM 7.6 g/dL (6.4-8.2)
[2020-09-26 15:17] LABS: TROPONIN-I < 0.017 ng/mL (0.000-0.060)
[2020-09-26] MEDS ORDERED: PROMETHAZINE W473 ML PO (17:04)
== END 2020-09-26 17:39 | disposition home or self-care (01) ==
LOC: D.ER 13:09
PROVIDERS: Family Medicine
DX: R07.9 Chest pain, unspecified (principal); Z86.73 Personal history of transient ischemic attack (TIA), and cerebral infarction without residual deficits; E11.9 Type 2 diabetes mellitus without complications; Z79.4 Long term (current) use of insulin; I10 Essential (primary) hypertension; J45.909 Unspecified asthma, uncomplicated; K21.9 Gastro-esophageal reflux disease without esophagitis